=== PATIENT | female | born 1950 | race African-American/Black ===

== ENCOUNTER 2017-12-06 22:46 | Emergency (ER) | payer MEDICARE, OTHER ==
[2017-12-06 23:40] LABS: Bilirubin Negative (Negative); Blood, Urine Negative (Negative); Clarity CLEAR (Clear); Glucose, Urine (Dipstick) >=1000 mg/dL (Negative); Leukocyte Negative (Negative); Nitrite Negative (Negative); Protein, Urine (Dipstick) Negative (Neg-Trace); Specific Gravity, Urine 1.029 (1.002-1.036)
[2017-12-06 23:42] LABS: #Eosinphils 0.2 thou/uL (0.0-0.7); #Lymphocytes 2.5 thou/uL (1.20-3.40); #Monocytes 0.6 thou/uL (0.11-0.59); #Neutrophils 5.6 thou/uL (1.40-6.50); %Basophils 0.4 % (0.0-1.0); %Eosinophils 1.9 % (0.0-10.0); %Lymphocytes 28.2 % (21.0-51.0); %Monocytes 6.3 % (0.0-10.0); %Neutrophils 63.2 % (42.0-75.0); Hemoglobin 13.7 g/dL (12.0-16.0); Mean Corpuscular HGB CONC 32.6 g/dL (32.0-36.0); Mean Corpuscular Hemoglobin 28.3 pg (27.0-31.0); Mean Corpuscular Volume 86.9 fl (81.0-99.0); Mean Platelet Volume 8.7 fL (7.4-10.4); Platelet Count 298 thou/uL (130-400); RBC Distribution Width 12.4 % (11.5-14.5); Red Blood Cell (RBC) Count 4.83 mill/uL (4.20-5.40); White Blood Cell (WBC) Count 8.9 thou/uL (4.8-10.8)
[2017-12-06 23:52] LABS: ALT (SGPT) 11 U/L (8-55); AST (SGOT) 13 U/L (5-34); Albumin 4.2 g/dL (3.4-4.8); Alkaline Phosphatase 101 U/L (40-150); Anion Gap 13 mmol/L (10-20); BUN (Urea Nitrogen) 11 mg/dL (9.8-20.1); Bilirubin, Total 0.9 mg/dL (0.2-1.2); Calc. Creatinine Clearance 0 mL/min (70-130); Calcium 9.7 mg/dL (7.8-10.44); Carbon Dioxide 23 mmol/L (23-31); Chloride 104 mmol/L (98-107); Estimated GFR-MDRD 44; Glucose 384 mg/dL (80-115); Lipase 21 U/L (8-78); Protein, Total 7.2 g/dL (6.0-8.3); Sodium 136 mmol/L (136-145)
[2017-12-06 23:57] LABS: Troponin I 0.011 ng/mL (< 0.028)
[2017-12-07] MEDS ORDERED: Pantoprazole 40 MG VIAL ONE (00:03)
[2017-12-07] MEDS ORDERED: cloNIDine 0.1 MG TAB ONE (00:03)
--- NOTE | 2017-12-07 09:36 | CT ---
PRELIMINARY REPORT/[facility]/EMERGENCY AFTER HOURS PROCEDURE: EXAM: CT Abdomen and Pelvis Without Intravenous Contrast EXAM DATE/TIME: Exam ordered 12/07/2017 1:36 AM CLINICAL HISTORY: 67 years old, female; Pain; Abdominal pain; Generalized; Prior surgery; Patient HX: Er 6; F67 present s to ed C/O abd pain that began 3 days ago. Pt reports HX of HTN and taking medication for BP today. Pt reports last bm was yesterday and normal. Pt denies n/v, denies diarrhea or constipation. Pt repor ts localized abd pain to lower abd, pt denies uti SX. Pt reports HX of perforated ulcer years ago. Pe rforated ulcer, surgical history of coronary artery bypass graft surgery, three vessels. TECHNIQUE: Axial computed tomography images of the abdomen and pelvis without intravenous contrast. Coronal reformatted images were created and reviewed. COMPARISON: No relevant prior studies available. FINDINGS: Lower thorax: No acute findings. ABDOMEN: Liver: There are multiple simple hepatic cysts. Gallbladder and bile ducts: Multiple calcified gallstones are present. No ductal dilation. Pancreas: There is trace fullness of the pancreas with haziness possibly representing mild pancreatit is. No ductal dilation. Spleen: The spleen is normal. Adrenals: The adrenal glands are normal. Kidneys and ureters: The kidneys appear normal. No obstructing stones. No hydronephrosis. Stomach and bowel: The stomach is normal. The colon is normal. No obstruction. No mucosal thickening. Appendix: A normal appendix is identified. PELVIS: Bladder: The bladder is normal. No stones. Reproductive: The uterus is normal. ABDOMEN and PELVIS: Intraperitoneal space: The duodenum is somewhat thickened possibly representing duodenitis. There is no free air to suggest perforated ulcer. No significant fluid collection. Bones/joints: There are sternal wires consistent with previous sternotomy incision. The lumbar spine demonstrates mild degenerative changes at multiple levels. No acute fracture. No dislocation. Soft tissues: Normal. Vasculature: Normal. No abdominal aortic aneurysm. Lymph nodes: Normal. No enlarged lymph nodes. IMPRESSION: 1. The duodenum is somewhat thickened possibly representing duodenitis. There is no free air to sugge st perforated ulcer. 2. There is trace fullness of the pancreas with haziness possibly representing mild pancreatitis. Co rrelation with lipase values is advised. Thank you for allowing us to participate in the care of your patient. Dictated and Authenticated by: Joshua Simmons MD 12/07/2017 2:10 AM Central Time ([place] & [place]) FINAL REPORT ABDOMEN CT WITHOUT CONTRAST PELVIC CT WITHOUT CONTRAST: Date: 12/07/17 HISTORY: Abdominal pain. Previous perforated ulcer. COMPARISON: 11/25/13. TECHNIQUE: Abdomen and pelvic CT performed without contrast. Coronal reformatted images submitted for interpreta tion. FINDINGS/IMPRESSION: There is mucosal thickening and distention involving the duodenum. Correlate for duodenitis. No assoc iated free air or free fluid. Contracted gallbladder with evidence of cholelithiasis. If there is concern for cholecystitis, consid er gallbladder ultrasound. Questionable inflammatory changes involving the pancreas. Correlate clinically for pancreatitis. Norm al caliber appendix. No evidence of bowel obstruction. Report in agreement with preliminary report given on-call by Timothy. POS: LET[facility]
--- NOTE | 2017-12-12 19:03 | EKG ---
Test Reason : Blood Pressure : / mmHG Vent. Rate : 075 BPM Atrial Rate : 075 BPM P-R Int : 134 ms QRS Dur : 074 ms QT Int : 412 ms P-R-T Axes : 058 057 078 degrees QTc Int : 460 ms Normal sinus rhythm Possible Left atrial enlargement Borderline ECG Confirmed by JULIUS MCNALLY, SAUD ([id number]), city editor VANCE LYNCH ([id number]) on 12/12/2017 7:02:19 PM Referred By: Confirmed By:SAUD MADRID MD
== END 2017-12-07 02:56 | disposition home or self-care (01) ==
LOC: ERS 22:46
DX: K29.80 Duodenitis without bleeding (principal); E11.9 Type 2 diabetes mellitus without complications; I10 Essential (primary) hypertension; I25.2 Old myocardial infarction; Z79.4 Long term (current) use of insulin; Z79.899 Other long term (current) drug therapy
CPT/HCPCS: 74176; 80053; 81003; 82553; 83690; 84484; 85025; 93005; 96374; C9113

== ENCOUNTER 2018-07-07 08:09 | Emergency (ER) | payer MEDICARE ==
[2018-07-07 08:52] LABS: #Eosinphils 0.1 thou/uL (0.0-0.7); #Lymphocytes 2.1 thou/uL (1.20-3.40); #Monocytes 0.5 thou/uL (0.11-0.59); #Neutrophils 3.7 thou/uL (1.40-6.50); %Basophils 0.6 % (0.0-1.0); %Eosinophils 1.6 % (0.0-10.0); %Lymphocytes 32.5 % (21.0-51.0); %Monocytes 7.3 % (0.0-10.0); Mean Corpuscular HGB CONC 32.5 g/dL (32.0-36.0); Mean Corpuscular Hemoglobin 28.2 pg (27.0-31.0); Mean Corpuscular Volume 86.6 fL (78.0-98.0); RBC Distribution Width 12.4 % (11.5-14.5); Red Blood Cell (RBC) Count 5.33 mill/uL (4.20-5.40); White Blood Cell (WBC) Count 6.4 thou/uL (4.8-10.8)
[2018-07-07 08:55] LABS: Bilirubin Negative (Negative); Blood, Urine Trace (Negative); Clarity CLOUDY (Clear); Glucose, Urine (Dipstick) 100 mg/dL (Negative); Leukocyte Small (Negative); Nitrite Negative (Negative); Protein, Urine (Dipstick) 30 mg/dL (Neg-Trace); Specific Gravity, Urine 1.016 (1.002-1.036); pH, Urine 5.5 (5.0-9.0)
[2018-07-07 08:59] LABS: Bacteria/HPF 1+ HPF (None Seen); Pathc Cast-AUWi Flag 1.88 (0-2.49)
[2018-07-07 09:08] LABS: MDiff Complete? YES; Mean Platelet Volume 9.4 fL (7.4-10.4); Platelet Clumps SLIGHT; Platelet Count 183 thou/uL (130-400)
[2018-07-07 09:14] LABS: ALT (SGPT) 8 U/L (8-55); AST (SGOT) 20 U/L (5-34); Albumin 4.6 g/dL (3.4-4.8); Alkaline Phosphatase 110 U/L (40-150); Anion Gap 15 mmol/L (10-20); BUN (Urea Nitrogen) 12 mg/dL (9.8-20.1); Bilirubin, Total 1.4 mg/dL (0.2-1.2); Calc. Creatinine Clearance 0 mL/min (70-130); Calcium 10.1 mg/dL (7.8-10.44); Carbon Dioxide 22 mmol/L (23-31); Chloride 104 mmol/L (98-107); Estimated GFR-MDRD 41; Globulin 4.3 g/dL (2.4-3.5); Glucose 211 mg/dL (80-115); Lipase 21 U/L (8-78); Potassium 4.4 mmol/L (3.5-5.1); Protein, Total 8.9 g/dL (6.0-8.3); Sodium 137 mmol/L (136-145)
[2018-07-07] MEDS ORDERED: Ondansetron HCl/PF 4 MG/2 ML Vial ONE (09:22)
[2018-07-07] MEDS ORDERED: Morphine 4 MG/ML VIAL ONE (09:22)
[2018-07-07 09:28] LABS: Hyaline Casts/LPF 4-6 HYALINE CAST LPF (0-3 Hyaline)
[2018-07-07 10:07] LABS: CKMB 0.7 ng/mL (0-6.6)
--- NOTE | 2018-07-07 12:41 | CT ---
CT ABDOMEN AND PELVIS WITH IV AND ORAL CONTRAST: History: Abdominal pain. Comparison: 12-07-17 FINDINGS: Mild atelectasis at the lung bases. Hyperdense stones within the gallbladder. Lobular cysts of the li jahaira are stable. The spleen, kidneys, adrenal glands, and pancreas are unremarkable. The duodenum does not appear inflamed on today's study. Appendix not inflamed. Urinary bladder is decompressed. No anthony dence of bowel obstruction. IMPRESSION: Cholelithiasis. No acute abnormalities are demonstrated. POS: [facility]
[2018-07-07] MEDS ORDERED: ISOVUE-370 76%-LOCM 1 ML ONE (12:47)
[2018-07-07] MEDS ORDERED: HYDROcodone/Acetaminophen 10/325 mg Tablet ONE (12:54)
--- NOTE | 2018-07-10 13:47 | EKG ---
Test Reason : Blood Pressure : / mmHG Vent. Rate : 060 BPM Atrial Rate : 060 BPM P-R Int : 132 ms QRS Dur : 072 ms QT Int : 466 ms P-R-T Axes : 050 029 083 degrees QTc Int : 466 ms Normal sinus rhythm Septal infarct , age undetermined Abnormal ECG Confirmed by PIPPA JAIMES DO ([id number]), supervising editor trailer VANCE LYNCH ([id number]) on 07/10/2018 1:46:52 PM Referred By: Confirmed By:PIPPA JAIMES DO
== END 2018-07-07 13:00 | disposition home or self-care (01) ==
LOC: ERS 08:09
DX: R10.9 Unspecified abdominal pain (principal); E78.00 Pure hypercholesterolemia, unspecified; E11.9 Type 2 diabetes mellitus without complications; I25.2 Old myocardial infarction; I10 Essential (primary) hypertension; I25.10 Atherosclerotic heart disease of native coronary artery without angina pectoris; Z79.4 Long term (current) use of insulin; Z79.899 Other long term (current) drug therapy; Z79.84 Long term (current) use of oral hypoglycemic drugs
CPT/HCPCS: 74177; 80053; 81003; 81015; 82553; 83690; 84484; 85025; 93005; 96361; 96374; 96375; J2270; J2405

== ENCOUNTER 2019-06-23 03:13 | Emergency (ER) | payer MEDICARE ==
[2019-06-23] MEDS ORDERED: Ondansetron PF 4 MG/2 ML Vial ONE (03:27)
[2019-06-23] MEDS ORDERED: Aspirin Chewable 81 MG TAB ONE (03:27)
[2019-06-23] MEDS ORDERED: Morphine 4 MG/ML VIAL ONE (03:27)
[2019-06-23 04:07] LABS: #Eosinphils 0.2 thou/uL (0.0-0.7); #Lymphocytes 1.9 thou/uL (1.20-3.40); #Monocytes 0.6 thou/uL (0.11-0.59); #Neutrophils 4.5 thou/uL (1.40-6.50); %Basophils 0.6 % (0.0-1.0); %Lymphocytes 25.7 % (21.0-51.0); %Monocytes 8.4 % (0.0-10.0); %Neutrophils 62.3 % (42.0-75.0); Hemoglobin 12.6 g/dL (12.0-16.0); Mean Corpuscular HGB CONC 33.8 g/dL (32.0-36.0); Mean Corpuscular Hemoglobin 28.9 pg (27.0-31.0); Mean Corpuscular Volume 85.6 fL (78.0-98.0); Mean Platelet Volume 8.6 fL (7.4-10.4); Platelet Count 295 thou/uL (130-400); RBC Distribution Width 11.7 % (11.5-14.5); Red Blood Cell (RBC) Count 4.36 mill/uL (4.20-5.40); White Blood Cell (WBC) Count 7.2 thou/uL (4.8-10.8)
[2019-06-23 04:24] LABS: ALT (SGPT) Less than 7 U/L (8-55); AST (SGOT) 10 U/L (5-34); Albumin 4.2 g/dL (3.4-4.8); Alkaline Phosphatase 75 U/L (40-150); Anion Gap 16 mmol/L (10-20); BUN (Urea Nitrogen) 21 mg/dL (9.8-20.1); Bilirubin, Total 0.9 mg/dL (0.2-1.2); CK (CPK) 47 U/L (29-168); Calc. Creatinine Clearance 0 mL/min (70-130); Calcium 9.9 mg/dL (7.8-10.44); Carbon Dioxide 25 mmol/L (23-31); Chloride 96 mmol/L (98-107); Estimated GFR-MDRD 37; Globulin 3.3 g/dL (2.4-3.5); Glucose 344 mg/dL (80-115); Potassium 3.2 mmol/L (3.5-5.1); Protein, Total 7.5 g/dL (6.0-8.3); Sodium 134 mmol/L (136-145)
--- NOTE | 2019-06-23 07:02 | RAD ---
CHEST 1 VIEW: Date: 06/23/19 INDICATION: Emergency examination for left-sided chest pain. COMPARISON: Prior exam dated 05/30/19. FINDINGS: Midline sternotomy changes and chronic lung changes are stable. No acute air space opacity or pleural effusion noted. No acute osseous abnormality is present. IMPRESSION: No acute cardiopulmonary abnormality. POS: [facility]
--- NOTE | 2019-06-23 07:45 | CT ---
PRELIMINARY REPORT/[facility]/EMERGENCY AFTER HOURS PROCEDURE: PROCEDURE INFORMATION: Exam: CT Abdomen and Pelvis With Contrast Exam date and time: 06/23/2019 4:39 AM Clinical history: 69 years old, female; Abdominal pain; Acute; Patient HX: 69 y/o F presents to ED with multiple compla ints, including x 2 days of diffuse pain with pain to L side worse than R; Intermittent chills x 2 days; Intermittent GARNICA x 2 days; Nausea, abd pain, and chest tightness that began tonight. PT has been taking acetaminophen for her pain, offering no relief. PT was recently admitted following presentation to ED for evaluation of GARNICA, with admission for TIA. TECHNIQUE: Imaging protocol: Computed tomography of the abdomen and pelvis with intravenous contrast. COMPARISON: No relevant prior studies available. FINDINGS: Liver: Liver lesions measuring up to 10 mm may be cystic. Gallbladder and bile ducts: There are multiple gallstones in the gallbladder. Pancreas: Normal. No ductal dilation. Spleen: Normal. No splenomegaly. Adrenals: Normal. No mass. Kidneys and ureters: Normal. No hydronephrosis. Stomach and bowel: There is a large amount of stool in the colon. Appendix: The appendix is unremarkable. Intraperitoneal space: Mild mesenteric edema is nonspecific. Vasculature: Calcifications in the andrade of the aorta and other arteries are consistent with atherosclerosis. No abdominal aortic aneurysm or dissection is identified. Lymph nodes: Unremarkable. No enlarged lymph nodes. Bladder: The wall of the urinary bladder is mildly thickened. Reproductive: Unremarkable as visualized. Bones/joints: There are degenerative changes in the spine. There is a probable Schmorl's node in L4. Soft tissues: Unremarkable. IMPRESSION: 1. Gallstones in the gallbladder. 2. Large amount of stool in the colon. 3. Additional findings as above. Thank you for allowing us to participate in the care of your patient. Dictated and Authenticated by: Drew Resendiz MD 06/23/2019 5:14 AM Central Time ([place] & [place]) FINAL REPORT EMERGENT AFTER HOURS CT ABDOMEN AND PELVIS WITH IV CONTRAST: HISTORY: Diffuse abdominal pain greater on the left. Intermittent chills. Nausea. COMPARISON: 07/07/2018. IMPRESSION: 1. Cholelithiasis. 2. Stable scattered hypodense lesions in each lobe of the liver which were also seen on study in 2013 statistically likely represent hepatic cysts. 3. Vascular calcifications. 4. Moderate amount of retained fecal material in the colon. 5. No CT evidence of appendicitis. 6. Suggested mild thickening in the region of the pylorus of the stomach and first and second portion s of the duodenum. This is overall nonspecific, but a similar finding was seen on study in 2013. This could be related to the degree of distention. However, if there is concern for ulcer disease or persistent abdominal symptoms, endoscopy is recommended for further evaluation. 7. Findings are in agreement with preliminary report by SHAYY. Transcribed Date/Time: 06/23/2019 8:13 AM
--- NOTE | 2019-06-25 12:20 | EKG ---
Test Reason : CP Blood Pressure : / mmHG Vent. Rate : 064 BPM Atrial Rate : 064 BPM P-R Int : 128 ms QRS Dur : 076 ms QT Int : 428 ms P-R-T Axes : 043 045 084 degrees QTc Int : 441 ms Normal sinus rhythm Nonspecific T wave abnormality Abnormal ECG Confirmed by TOMAS COOK M.D. ([id number]), editor producer JENIFFER BELTRAN ([id number]) on 06/25/2019 12:20:23 PM Referred By: Confirmed By:TOMAS COOK M.D.
== END 2019-06-23 05:41 | disposition home or self-care (01) ==
LOC: ERS 03:13
DX: R07.89 Other chest pain (principal); R10.814 Left lower quadrant abdominal tenderness; I25.2 Old myocardial infarction; E11.9 Type 2 diabetes mellitus without complications; I10 Essential (primary) hypertension; E78.00 Pure hypercholesterolemia, unspecified; Z79.01 Long term (current) use of anticoagulants; Z79.899 Other long term (current) drug therapy; Z79.84 Long term (current) use of oral hypoglycemic drugs
CPT/HCPCS: 71045; 74177; 80053; 82550; 84484; 85025; 93005; 96374; 96375; J2270; J2405

== ENCOUNTER 2019-11-20 09:40 | Observation (INO) | payer MEDICARE, OTHER ==
[2019-11-20 12:07] LABS: #Basophils 0.1 thou/uL (0.0-0.2); #Eosinphils 0.2 thou/uL (0.0-0.7); #Lymphocytes 1.8 thou/uL (1.20-3.40); #Monocytes 0.6 thou/uL (0.11-0.59); #Neutrophils 6.8 thou/uL (1.40-6.50); %Basophils 0.7 % (0.0-1.0); %Eosinophils 1.6 % (0.0-10.0); %Lymphocytes 18.7 % (21.0-51.0); %Monocytes 6.4 % (0.0-10.0); %Neutrophils 72.6 % (42.0-75.0); Mean Corpuscular HGB CONC 33.8 g/dL (32.0-36.0); Mean Corpuscular Hemoglobin 28.7 pg (27.0-31.0); Mean Corpuscular Volume 84.7 fL (78.0-98.0); Mean Platelet Volume 9.9 fL (7.4-10.4); Platelet Count 231 thou/uL (130-400); RBC Distribution Width 11.2 % (11.5-14.5); Red Blood Cell (RBC) Count 4.89 mill/uL (4.20-5.40); White Blood Cell (WBC) Count 9.4 thou/uL (4.8-10.8)
[2019-11-20] MEDS ORDERED: Ondansetron PF 4 MG/2 ML Vial ONE (12:13)
[2019-11-20 12:29] LABS: ALT (SGPT) Less than 7 U/L (8-55); AST (SGOT) 9 U/L (5-34); Alkaline Phosphatase 81 U/L (40-110); Anion Gap 16 mmol/L (10-20); BUN (Urea Nitrogen) 24 mg/dL (9.8-20.1); Bilirubin, Total 1.4 mg/dL (0.2-1.2); Calc. Creatinine Clearance 0 mL/min (70-130); Carbon Dioxide 29 mmol/L (23-31); Chloride 91 mmol/L (98-107); Estimated GFR-MDRD 26; Globulin 2.9 g/dL (2.4-3.5); Glucose 525 mg/dL (80-115); Lipase 30 U/L (8-78); Potassium 3.5 mmol/L (3.5-5.1); Protein, Total 6.9 g/dL (6.0-8.3); Sodium 132 mmol/L (136-145)
[2019-11-20 12:52] LABS: CKMB 1.5 ng/mL (0-6.6)
[2019-11-20] MEDS ORDERED: Insulin Regular 300 UNITS/3 ML VIAL ONE (13:05)
[2019-11-20] MEDS ORDERED: Aspirin Chewable 81 MG TAB ONE (13:05)
--- NOTE | 2019-11-20 15:08 | ULT ---
[facility]: 11/20/2019 COMPARISON:None available HISTORY:Right upper quadrant pain TECHNIQUE: Multiplanar grayscale sonographic imaging of theright upper quadrant FINDINGS:The senior sales director reports a negative Ken's sign. Imaged pancreas grossly unremarkable. No f ocal liver lesion or intrahepatic biliary dilatation. Numerous echogenic foci within the gallbladder with associated shadowing present, consistent with cholelithiasis. No gallbladder wall th ickening or pericholecystic fluid. The common bile duct measures 4 mm, within normal limits. Right kidney measures 10.2 cm in craniocaudal dimension and demonstrates no evidence for stone, hydro nephrosis, or mass lesion. IMPRESSION:Cholelithiasis with no sonographic evidence of cholecystitis or biliary dilatation.
[2019-11-20] MEDS ORDERED: Calcium Carbonate 500 MG ChewTAB PO PRN (15:16)
[2019-11-20] MEDS ORDERED: Guaifenesin DM 100-10/5 ML UDCUP PO PRN (15:16)
[2019-11-20] MEDS ORDERED: Dextrose 50% Abboject 50 ML SYRINGE SLOW IVP PRN (15:16)
[2019-11-20] MEDS ORDERED: Dextrose 5% in Water 1,000 ML IV PRN (15:16)
[2019-11-20] MEDS ORDERED: Nitroglycerin 0.4 MG TAB (25 Tab Bottle) PO PRN (15:16)
[2019-11-20] MEDS ORDERED: Zolpidem Tartrate 5 MG TAB PO PRN (15:16)
[2019-11-20] MEDS ORDERED: Bisacodyl 10 MG SUPP PR PRN (15:16)
[2019-11-20] MEDS ORDERED: Ondansetron PF 4 MG/2 ML Vial IVP PRN (15:16)
[2019-11-20] MEDS ORDERED: HumaLOG 300 UNITS/3 ML VIAL SC PRN (15:16)
[2019-11-20 15:44] LABS: Troponin I 0.035 ng/mL (< 0.028)
--- NOTE | 2019-11-20 16:04 | HP ---
REASON FOR ADMISSION: Chest pain, nausea and vomiting. HISTORY OF PRESENTING ILLNESS: The patient gives history of feeling bad and weak from morning. She also mentions that she has had cold and flu-like symptoms for last 3 weeks. She has some cough, but mostly dry. She vomited twice this morning. She has frontal headache. She also mentions she has had some postnasal drainage. No complaints of fever this morning. No complaints of palpitations, PND, or orthopnea. No complaints of urinary frequency or urgency. Has had chest pain in the retrosternal area for a brief minute or 2. This did not come back. There is no radiation of this pain and got resolved by itself. PAST MEDICAL AND SURGICAL HISTORY: History of coronary artery disease, prior CABG, prior cardiac catheterizations done, which revealed small vessel disease for medical management. Last echo in May of 2019 showed EF of 55% to 60%. History of cholelithiasis; dyslipidemia; hypertension; diabetes mellitus, type 2; chronic kidney disease, stage 3; history of perforated peptic ulcer with surgery for the same. CURRENT MEDICATIONS: Please note the patient cannot recall all her medications. She says she goes to [facility] on [address] and we will try to obtain the same from there. She does mention that she has stopped taking insulin shots including Levemir and is on glimepiride only at present. Per prior records, the patient is on; 1. Norvasc 10 mg daily. 2. Aspirin 81 mg daily. 3. Plavix 75 mg daily. 4. Coreg 12.5 mg twice daily. 5. Hydrochlorothiazide 25 mg daily. 6. Imdur extended release 60 mg daily. 7. Crestor 10 mg daily. 8. Zolpidem 5 mg p.o. at bedtime p.r.n. 9. Glimepiride 4 mg twice daily. 10. Protonix 40 mg daily. 11. [place] 5/325 mg p.o. q.6 hourly p.r.n. 12. Colace 100 mg daily. ALLERGIES: ALLERGIC TO PENICILLIN. PERSONAL HISTORY: Does not abuse alcohol or drugs. No history of smoking. She ambulates by herself. FAMILY HISTORY: Mother in her 60s, she has had history of HIV. Father in his 70s from unknown cancer. CODE STATUS: Full. REVIEW OF SYSTEMS: CONSTITUTIONAL: Negative for weight loss or gain, ability to conduct usual activities. SKIN: Negative for rash, itching. EYES: Negative for double vision, pain. ENT/MOUTH: Negative for nose bleeding, neck stiffness, pain, tenderness. CARDIOVASCULAR: Negative for palpitations, dyspnea on exertion, orthopnea. RESPIRATORY: Negative for shortness of breath, wheezing, cough, hemoptysis, fever or night sweats. GASTROINTESTINAL: Negative for poor appetite, abdominal pain, heartburn, nausea , vomiting, constipation, or diarrhea. GENITOURINARY: Negative for urgency, frequency, dysuria, nocturia. MUSCULOSKELETAL: Negative for pain, swelling. NEUROLOGIC/PSYCHIATRIC: Negative for anxiety, depression. ALLERGY/IMMUNOLOGIC: Negative for skin rash, bleeding tendency. PHYSICAL EXAMINATION: GENERAL: The patient is a 69-year-old female, who is currently not in any acute distress. VITAL SIGNS: Blood pressure 132/70, pulse 70 per minute, respiratory rate 18 per minute, temperature 97.9 degrees Fahrenheit, saturating 100% on room air. NECK: Supple. No elevated JVD. HEENT: Eyes; extraocular muscles are intact. Pupils are reacting to light. Oral cavity, mucous membranes are moist. No exudates or congestion. CARDIOVASCULAR SYSTEM: S1 and S2 heard, regular rhythm. RESPIRATORY SYSTEM: Air entry 1+ bilateral. No rales or rhonchi. ABDOMEN: Soft. Bowel sounds heard. No tenderness, rigidity, or guarding. EXTREMITIES: No peripheral edema or calf tenderness. VASCULAR SYSTEM: Peripheral pulses 1+ bilateral. No ischemic ulcerations or gangrene. CENTRAL NERVOUS SYSTEM: No gross focal deficits noted. The patient is alert, awake, and oriented well. PSYCHIATRIC SYSTEM: The patient's mood is euthymic. No hallucinations or delusions. LABORATORY DATA: White count of 9.4, hemoglobin and hematocrit of 14 and 41, platelet count 231, with 72% neutrophils. Sodium 132, serum bicarb 29, BUN 24, creatinine 2.2, serum glucose 525, total bilirubin 1.4. AST, ALT, alkaline phosphatase within normal limits. Troponin-I 0.03. Lipase is 30. Ultrasound of right upper quadrant done, showed cholelithiasis with no evidence of cholecystitis or biliary dilatation. Common bile duct was 4 mm and was within normal limits. EKG done shows normal sinus rhythm at 62 beats per minute. There is Q-wave seen in V2 and V3 with poor R-wave progression. CLINICAL IMPRESSION AND PLAN: The patient will be under observation on telemetry for an episode of chest pain with generalized weakness and flu-like illness for the last 3 weeks. We will trend her troponins. She has known history of coronary artery disease with prior coronary artery bypass grafting and is for medical management due to diffuse disease. She also has diabetes mellitus, type 2, which is uncontrolled. The patient says she was taken off Levemir recently. We will place her back on 20 units of Lantus at bedtime and continue her glimepiride 4 mg twice daily. She will be gently hydrated with normal saline at 100 mL per hour for a total of 1 L. We will continue Norvasc, carvedilol, aspirin, Plavix, Imdur extended release as before. Her hydrochlorothiazide will be held for now. We will consult Dr. Mendes, her pen tender in the morning. We will also obtain a viral PCR to know if she had any flu recently. Job ID: [id number] MTDD
[2019-11-20 16:24] VITALS: BMI 21.4
[2019-11-20] MEDS: Sodium Chloride 0.9% 1,000 ML IV SCH (17:17)
--- NOTE | 2019-11-20 17:42 | RAD ---
Exam: Chest one view HISTORY:Chest pain Comparison: 06/23/2019 FINDINGS: Cardiac silhouette: Normal Aorta: Atherosclerosis of the aortic knob Pulmonary vessels: Normal Costophrenic angles: Clear LUNGS: No masses or consolidation. Pneumothorax: None Osseous abnormalities: None Sternotomy wires are redemonstrated IMPRESSION: No acute cardiopulmonary process.
[2019-11-20 18:34] LABS: Troponin I 0.034 ng/mL (< 0.028)
[2019-11-20] MEDS: Carvedilol 6.25 MG TAB PO SCH (20:39)
[2019-11-20] MEDS: Heparin 5,000 UNITS/ML VIAL SC SCH (20:39)
[2019-11-20] MEDS ORDERED: Senokot S 8.6-50 MG TAB PO PRN (21:00)
[2019-11-20] MEDS: Insulin Glargine 20 UNITS in Pre-Filled Syringe 1 EACH SC SCH (22:41)
[2019-11-21] MEDS: Sodium Chloride 0.9% 1,000 ML IV SCH (02:29)
[2019-11-21 04:52] LABS: #Eosinphils 0.2 thou/uL (0.0-0.7); #Lymphocytes 2.1 thou/uL (1.20-3.40); #Monocytes 0.5 thou/uL (0.11-0.59); #Neutrophils 4.3 thou/uL (1.40-6.50); %Eosinophils 2.4 % (0.0-10.0); %Lymphocytes 29.1 % (21.0-51.0); %Monocytes 7.6 % (0.0-10.0); %Neutrophils 60.9 % (42.0-75.0); Hemoglobin 11.7 g/dL (12.0-16.0); Mean Corpuscular HGB CONC 32.8 g/dL (32.0-36.0); Mean Corpuscular Hemoglobin 28.3 pg (27.0-31.0); Mean Corpuscular Volume 86.1 fL (78.0-98.0); Mean Platelet Volume 9.8 fL (7.4-10.4); Platelet Count 198 thou/uL (130-400); RBC Distribution Width 11.3 % (11.5-14.5); Red Blood Cell (RBC) Count 4.15 mill/uL (4.20-5.40)
[2019-11-21 05:02] LABS: ALT (SGPT) Less than 7 U/L (8-55); AST (SGOT) 9 U/L (5-34); Alkaline Phosphatase 61 U/L (40-110); Anion Gap 10 mmol/L (10-20); BUN (Urea Nitrogen) 22 mg/dL (9.8-20.1); Bilirubin, Total 0.8 mg/dL (0.2-1.2); Calc. Creatinine Clearance 28 mL/min (70-130); Calcium 8.6 mg/dL (7.8-10.44); Carbon Dioxide 27 mmol/L (23-31); Chloride 104 mmol/L (98-107); Cholesterol 100 mg/dl (< 200 Desired); Estimated GFR-MDRD 34; Globulin 2.6 g/dL (2.4-3.5); Glucose 234 mg/dL (80-115); HDL Cholesterol 49 mg/dL (>60 Neg Risk); LDL Cholesterol, Calculated 42 mg/dL; Potassium 3.5 mmol/L (3.5-5.1); Protein, Total 5.6 g/dL (6.0-8.3); Sodium 137 mmol/L (136-145); Triglycerides 44 mg/dL (Less than 150)
[2019-11-21] MEDS: HumaLOG 300 UNITS/3 ML VIAL SC PRN ×2 (05:30→11:26)
[2019-11-21] MEDS: Clopidogrel Bisulfate 75 MG TAB PO SCH (08:57)
[2019-11-21] MEDS: Carvedilol 6.25 MG TAB PO SCH ×2 (08:57→21:14)
[2019-11-21] MEDS: Aspirin 81 mg Enteric Coated Tablet PO SCH (08:57)
[2019-11-21] MEDS: Amlodipine 10 MG TAB PO SCH (08:57)
[2019-11-21] MEDS: Glimepiride 4 MG TAB PO SCH (08:57)
[2019-11-21] MEDS: Heparin 5,000 UNITS/ML VIAL SC SCH ×2 (08:58→21:15)
[2019-11-21] MEDS ORDERED: Hydrochlorothiazide 25 MG TAB PO SCH (09:00)
[2019-11-21] MEDS ORDERED: Prevnar 13-Val Conj/PF 0.5 ML SYRINGE IM ONE (09:00)
[2019-11-21] MEDS ORDERED: FLU VACC TS2019-20(65YR UP)/PF 180 MCG/0.5 ML SYRINGE IM ONE (09:00)
[2019-11-21] MEDS: Acetaminophen 325 MG TAB PO PRN ×2 (09:01→15:54)
--- NOTE | 2019-11-21 10:10 | PRG ---
DATE OF SERVICE: 11/21/2019 SUBJECTIVE: Ms. Main is a very pleasant 69-year-old woman, who had a history of coronary disease with previous bypass surgery. She came to the hospital with weakness, fatigue, found to have renal insufficiency, slightly increased troponin levels, and she has been having recurrent chest pain, left lower anterior chest. The patient is very unsure about her medicines, please see the nurse's notes. She thinks she has had a flu in the last couple of weeks, but she has not had a specific diagnosis. OBJECTIVE: VITAL SIGNS: Blood pressure 108/56, pulse 58 and regular. LUNGS: Clear. CARDIAC: Normal S1, normal S2. ABDOMEN: Soft and nontender. ASSESSMENT: 1. Previous bypass surgery. 2. Left lower anterior chest pain, atypical for angina. 3. Distal atherosclerosis. 4. Diabetes. She said her blood sugar was 525 yesterday. 5. Worsening renal function, probably volume depletion due to hyperglycemia and diuretics. 6. Hyponatremia, improved. PLAN: 1. Continue fluid. 2. Holding hydrochlorothiazide. 3. Stress test to be ordered. Job ID: [id number] MTDD
--- NOTE | 2019-11-21 10:56 | PDOC.HOSPP ---
- Subjective Encounter Date: 11/21/19 Encounter Time: 10:00 Subjective: sitting in chair, no chest pain or palpitations. Feels good is ambulating in room - Objective Vital Signs & Weight: Vital Signs (12 hours) Temp Pulse Resp BP BP Pulse Ox 11/21/19 08:57 58 L 108/56 L 11/21/19 07:21 97.6 F 58 L 16 159/74 H 100 11/21/19 02:29 50 L 18 108/56 L 98 Weight Weight 132 lb 14.4 oz I&O: 11/20/19 11/21/19 11/22/19 06:59 06:59 06:59 Intake Total 1920 Balance 1920 Result Diagrams: 11/21/19 04:27 11/21/19 04:27 Additional Labs: Accuchecks 11/20/19 11/20/19 20:42 14:03 POC Glucose 353 H 314 H Hospitalist ROS - Medication Medications: Active Medications Generic Name Dose Route Start Last Admin Trade Name Freq PRN Reason Stop Dose Admin Acetaminophen 650 mg 11/20/19 15:16 11/21/19 09:01 Tylenol PO 650 mg Q4H PRN Administration Headache/Fever/Mild Pain (1-3) Amlodipine Besylate 10 mg 11/21/19 09:00 11/21/19 08:57 Norvasc PO 10 mg DAILY JOHN Administration Aspirin 81 mg 11/21/19 09:00 11/21/19 08:57 Ecotrin PO 81 mg DAILY JOHN Administration Carvedilol 12.5 mg 11/20/19 21:00 11/21/19 08:57 Coreg PO 12.5 mg BID JOHN Administration Clopidogrel Bisulfate 75 mg 11/21/19 09:00 11/21/19 08:57 Plavix PO 75 mg DAILY JOHN Administration Glimepiride 4 mg 11/21/19 08:00 11/21/19 08:57 Amaryl PO 4 mg QAM-WM JOHN Administration Heparin Sodium (Porcine) 5,000 units 11/20/19 21:00 11/21/19 08:58 Heparin SC 5,000 units BID JOHN Administration Insulin Glargine 20 units/ 0.2 mls @ 0 mls/hr 11/20/19 21:00 11/20/19 22:41 Miscellaneous Medication SC 0.2 mls HS JOHN Administration Sodium Chloride 1,000 mls @ 100 mls/hr 11/20/19 15:30 11/21/19 02:29 Normal Saline 0.9% IV 11/21/19 11:29 1,000 mls .Q10H JOHN Administration Insulin Human Lispro 0 units 11/20/19 15:16 11/21/19 05:30 Humalog SC 6 unit .AGGRESSIVE SLIDING PRN Administration Aggressive Correctional Scale Insulin Human Lispro 0 units 11/20/19 15:16 11/20/19 20:45 Humalog SC 5 unit .BEDTIME SLIDING SC PRN Administration Bedtime Correctional Scale Isosorbide Mononitrate 60 mg 11/21/19 09:00 11/21/19 08:57 Imdur PO 60 mg DAILY JOHN Administration Ondansetron HCl 4 mg 11/20/19 15:16 11/21/19 08:59 Zofran IVP 4 mg Q6H PRN Administration Nausea/Vomiting - Exam General Appearance: awake alert Eye: PERRL, anicteric sclera ENT: no oropharyngeal lesions, moist mucosa Neck: supple, no JVD Heart: RRR, no murmur Respiratory: no wheezes, no rales Gastrointestinal: soft, non-tender, non-distended, normal bowel sounds Extremities: no cyanosis, no edema Neurological: cranial nerve grossly intact, no focal deficits Psychiatric: normal affect, A&O x 3 Hosp A/P (1) Chest pain Code(s): R07.9 - CHEST PAIN, UNSPECIFIED Status: Acute Qualifiers: Chest pain type: unspecified Qualified Code(s): R07.9 - Chest pain, unspecified (2) ARIELA (acute kidney injury) Code(s): N17.9 - ACUTE KIDNEY FAILURE, UNSPECIFIED Status: Acute (3) CKD (chronic kidney disease) stage 3, GFR 30-59 ml/min Code(s): N18.3 - CHRONIC KIDNEY DISEASE, STAGE 3 (MODERATE) Status: Chronic (4) Dyslipidemia Code(s): E78.5 - HYPERLIPIDEMIA, UNSPECIFIED Status: Chronic (5) CAD (coronary artery disease) Code(s): I25.10 - ATHSCL HEART DISEASE OF [place] CORONARY ARTERY W/O ANG PCTRS Status: Chronic Qualifiers: Coronary Disease-Associated Artery/Lesion type: bypass graft [place] vs. transplanted heart: [place] heart Associated angina: without angina Qualified Code(s): I25.810 - Atherosclerosis of coronary artery bypass graft(s) without angina pectoris (6) Diabetes mellitus Code(s): E11.9 - TYPE 2 DIABETES MELLITUS WITHOUT COMPLICATIONS Status: Chronic Qualifiers: Diabetes mellitus type: type 2 Diabetes mellitus senior care insulin use: without senior care use Diabetes mellitus complication status: with kidney complications Diabetes mellitus complication detail: with chronic kidney disease Chronic kidney disease stage: stage 3 (moderate) Qualified Code(s): E11.22 - Type 2 diabetes mellitus with diabetic chronic kidney disease; N18.3 - Chronic kidney disease, stage 3 (moderate) (7) Hypertension Code(s): I10 - ESSENTIAL (PRIMARY) HYPERTENSION Status: Chronic Qualifiers: Hypertension type: essential hypertension Qualified Code(s): I10 - Essential (primary) hypertension - Plan viral PCR was -ve gentle iv hydration, renal function is trending down to normal stress test has been scheduled by rosa Presley f/u dc plan per cardiology adv. will add glipizide and januvia on dc for dm, pt does not want any insulins
[2019-11-21] MEDS ORDERED: Nitroglycerin 2% Ointment 1 INCH/1 GM Packet ONE (16:08)
[2019-11-21] MEDS ORDERED: Nitroglycerin 2% Ointment 1 INCH/1 GM Packet TOP SCH (16:30)
[2019-11-21] MEDS: Insulin Glargine 20 UNITS in Pre-Filled Syringe 1 EACH SC SCH (21:15)
[2019-11-22] MEDS: Clopidogrel Bisulfate 75 MG TAB PO SCH (10:29)
[2019-11-22] MEDS: Aspirin 81 mg Enteric Coated Tablet PO SCH (10:29)
[2019-11-22] MEDS: Glimepiride 4 MG TAB PO SCH (10:29)
[2019-11-22] MEDS: Amlodipine 10 MG TAB PO SCH (10:29)
[2019-11-22] MEDS: Carvedilol 6.25 MG TAB PO SCH (10:29)
[2019-11-22] MEDS: Heparin 5,000 UNITS/ML VIAL SC SCH (10:30)
--- NOTE | 2019-11-22 11:53 | NM ---
NUCLEAR MEDICINE CARDIAC SPECT WITH EF AND WALL MOTION: HISTORY: Chest pain. This is an adenosine sestamibi study. The patient was injected with 28.2 mCi Technetium 99m sestamibi intravenously for stress images and t he patient was injected with 27.0 mCi Technetium 99m sestamibi intravenously for resting images. Multiple SPECT images in the short axis, vertical long axis, and horizontal long axis demonstrate no scan evidence for infarct or ischemia. TID 1.1. LHR 0.49. EDV 80 mL. Ejection fraction 71%. MYOCARDIAL PERFUSION WALL MOTION: Wall motion is normal. IMPRESSION: Unremarkable cardiac SPECT with EF and wall motion. No scan evidence for infarct or ischemia. POS: MALINA
[2019-11-22] MEDS ORDERED: ADENOSINE 60 MG/20 ML VIAL ONE (12:00)
[2019-11-22 12:06] VITALS: BP 133/62; TEMP 98.7
--- NOTE | 2019-11-22 16:48 | DIS ---
DATE OF ADMISSION: 11/20/2019 DATE OF DISCHARGE: 11/22/2019 DISCHARGE DISPOSITION: To home. PRIMARY DISCHARGE DIAGNOSES: Chest pain, noncardiac; acute kidney injury with moderate dehydration, resolved; history of chronic kidney disease stage 3; history of coronary artery disease; dyslipidemia; hypertension; diabetes mellitus type 2, uncontrolled on admission, resolved. PROCEDURES DONE DURING HOSPITALIZATION: Right upper quadrant ultrasound done showed cholelithiasis, but no evidence of cholecystitis or biliary dilatation. Common bile duct was 4 mm. Nuclear stress test done showed normal wall motion with EF of 71%. No scan evidence for infarct or ischemia. Respiratory virus panel PCR was negative. H and H of 11 and 35, platelet count 198. BUN 22, creatinine 1.8. Admitting BUN and creatinine was 24 and 2.2 with serum sugars of 525. DISCHARGE MEDICATIONS: 1. Norvasc 10 mg daily. 2. Aspirin 81 mg p.o. daily. 3. Coreg 12.5 mg twice daily. 4. Plavix 75 mg daily. 5. Zetia 10 mg daily. 6. Hydrochlorothiazide 25 mg daily. 7. Protonix 40 mg daily. 8. Lipitor 40 mg p.o. daily. 9. Glimepiride 4 mg p.o. daily. 10. Glipizide 5 mg daily. 11. Januvia 50 mg daily. ALLERGIES: ALLERGIC TO PENICILLIN. INPATIENT CONSULT: Dr. Mendes for Cardiology. DISCHARGE PLAN: The patient to follow up with Dr. Clifford, her primary care physician in 1 week. She needs to follow up with Dr. Mendes in 3 to 4 weeks. BRIEF COURSE DURING HOSPITALIZATION: The patient initially came to ER on the with complaints of nausea, vomiting, and chest discomfort. She had flu-like illness for 3 weeks prior to arrival. The patient had moderate dehydration with acute kidney injury on top of chronic kidney disease stage 3. She was gently hydrated. In view of her coronary artery disease with indeterminate troponin, the patient was placed under observation on telemetry. She has had consultation with Dr. Mendes, her senior examiner as well. She has had a nuclear stress test done, which showed no reversible ischemia. The patient had taken herself off Lantus as she did not want to prick herself. In view of the patient not wanting insulins, she was placed on glipizide, low-dose Januvia based on creatinine clearance, and glimepiride for her diabetes. She is hemodynamically stable and will be shortly discharged home. Please note, I have seen and examined the patient on the day of discharge. Job ID: [id number]
== END 2019-11-22 13:52 | disposition home or self-care (01) ==
LOC: ERS 09:40 → 2SW 14:48
PROVIDERS: ADMIT Internal Medicine; ATTEND Internal Medicine
DX: R07.89 Other chest pain (principal); I12.9 Hypertensive chronic kidney disease with stage 1 through stage 4 chronic kidney disease, or unspecified chronic kidney disease; E11.22 Type 2 diabetes mellitus with diabetic chronic kidney disease; N18.3 Chronic kidney disease, stage 3 (moderate); N17.9 Acute kidney failure, unspecified; E86.0 Dehydration; E78.5 Hyperlipidemia, unspecified; I25.10 Atherosclerotic heart disease of native coronary artery without angina pectoris; K80.20 Calculus of gallbladder without cholecystitis without obstruction; I25.2 Old myocardial infarction; E87.1 Hypo-osmolality and hyponatremia; Z79.02 Long term (current) use of antithrombotics/antiplatelets; Z79.82 Long term (current) use of aspirin; Z79.899 Other long term (current) drug therapy; Z88.0 Allergy status to penicillin; Z95.1 Presence of aortocoronary bypass graft
CPT/HCPCS: 71045; 76705; 78452; 80053 ×2; 80061; 82553; 82962 ×3; 83690; 84484 ×2; 85025 ×2; 87633; 90662; 90670; 93005 ×2; 93017; 94760 ×2; 96361; 96374; 96375; 97139; 99285; A9500; G0008; G0009; 36415; 36416; 90471; 93010; 96372; 96376; G0378; J0153; J1644; J1815; J2405

== ENCOUNTER 2021-09-29 16:26 | Observation (INO) | payer MEDICARE ==
[2021-09-29] MEDS ORDERED: Acetaminophen 500 MG TAB ONE (17:14)
[2021-09-29 17:26] LABS: Actual Bicarbonate (HCO3v) 26 mEq/L (22-28); Analyzer IN Cardio ER; Base Excess 1.9 mEq/L (-2.0 to +3.0); Calcium, Ionized (venous) 1.09 mmol/L (1.16-1.32); Chloride (VBG) 93 mmol/L (98-106); Potassium (VBG) 3.37 mmol/L (3.70-5.30); Sodium 130.8 mmol/L (133-146); pH (venous) 7.43 (7.32-7.43)
[2021-09-29 17:35] LABS: Hemoglobin 13.1 g/dL (12.0-16.0); Mean Corpuscular HGB CONC 32.7 g/dL (32.0-36.0); Mean Corpuscular Volume 88.6 fL (78.0-98.0); Mean Platelet Volume 8.5 fL (7.4-10.4); Platelet Count 214 thou/uL (130-400); RBC Distribution Width 12.4 % (11.5-14.5); Red Blood Cell (RBC) Count 4.52 mill/uL (4.20-5.40); White Blood Cell (WBC) Count 7.6 thou/uL (4.8-10.8)
[2021-09-29 17:54] LABS: Band 11 % (5-11); Lymphocytes 13 % (21-51); MDiff Complete? YES; Monocytes 11 % (0-10); Neutrophil 61 % (42-75); Platelet Morphology Comment Appears Adequate; RBC Morphology Normal; Reactive Lymphocytes 3 % (0-10)
[2021-09-29 17:59] LABS: ALT (SGPT) 16 U/L (8-55); AST (SGOT) 23 U/L (5-34); Albumin 3.8 g/dL (3.4-4.8); Alkaline Phosphatase 68 U/L (40-110); Anion Gap 14 mmol/L (10-20); BUN (Urea Nitrogen) 26 mg/dL (9.8-20.1); Bilirubin, Total 1.3 mg/dL (0.2-1.2); Calc. Creatinine Clearance 0 mL/min (70-130); Calcium 9.5 mg/dL (7.8-10.44); Carbon Dioxide 28 mmol/L (23-31); Chloride 94 mmol/L (98-107); Globulin 3.5 g/dL (2.4-3.5); Glucose 206 mg/dL (83-110); Magnesium 1.7 mg/dL (1.6-2.6); Potassium 3.5 mmol/L (3.5-5.1); Protein, Total 7.3 g/dL (5.8-8.1); Sodium 132 mmol/L (136-145)
[2021-09-29 18:16] LABS: CKMB 0.5 ng/mL (0-6.6)
[2021-09-29 19:35] LABS: Bilirubin Negative (Negative); Blood, Urine Negative (Negative); Clarity Clear (Clear); Glucose, Urine (Dipstick) Normal (Negative); Ketone, Urine Negative (Negative); Leukocyte Negative Leu/uL (Negative); Nitrite Negative (Negative); Protein, Urine (Dipstick) 20 mg/dL (Neg-Trace); Specific Gravity, Urine 1.017 (1.002-1.036); Urobilinogen Normal mg/dL (Less than 2); pH, Urine 5.5 (5.0-9.0)
[2021-09-29 20:44] LABS: SARS-CoV-2 NAA Rapid Test Not Detected (NotDetected)
[2021-09-29] MEDS ORDERED: Oseltamivir 75 MG CAP PO SCH (22:30)
[2021-09-29 23:42] LABS: Troponin I 0.049 ng/mL (< 0.028)
[2021-09-30 00:38] VITALS: BMI 20.5
[2021-09-30 01:45] LABS: Troponin I 0.032 ng/mL (< 0.028)
[2021-09-30] MEDS ORDERED: Acetaminophen 325 MG TAB PO PRN (08:00)
[2021-09-30] MEDS ORDERED: Sodium Chloride 0.9% 1,000 ML IV SCH (08:15)
[2021-09-30] MEDS ORDERED: Ezetimibe 10 MG TAB PO SCH (09:00)
[2021-09-30] MEDS ORDERED: Clopidogrel Bisulfate 75 MG TAB PO SCH (09:00)
[2021-09-30] MEDS ORDERED: Oseltamivir 75 MG CAP PO SCH (09:00)
[2021-09-30] MEDS ORDERED: sitaGLIPtin Phosphate 25 MG TAB PO SCH (09:00)
[2021-09-30] MEDS ORDERED: Non-Formulary Item 1 EACH (Carvedilol [Carvedilol] 12.5 MG Tablet) PO SCH (09:00)
[2021-09-30] MEDS ORDERED: Aspirin 81 mg Enteric Coated Tablet PO SCH (09:00)
[2021-09-30] MEDS ORDERED: Hydrochlorothiazide 25 MG TAB PO SCH (09:00)
[2021-09-30] MEDS ORDERED: Alogliptin 6.25 MG TAB PO SCH (09:00)
[2021-09-30] MEDS ORDERED: Amlodipine 10 MG TAB PO SCH (09:00)
[2021-09-30] MEDS ORDERED: Carvedilol 6.25 MG TAB PO SCH (09:00)
[2021-09-30] MEDS ORDERED: Guaifenesin DM 100-10/5 ML UDCUP PO PRN (10:34)
[2021-09-30] MEDS ORDERED: Benzonatate 100 MG CAP PO PRN (10:34)
[2021-09-30 16:16] VITALS: BP 122/58; TEMP 98.3
== END 2021-09-30 16:48 | disposition home or self-care (01) ==
LOC: ERS 16:26 → 2SW 22:17
PROVIDERS: ADMIT Internal Medicine; ATTEND Internal Medicine
DX: J10.1 Influenza due to other identified influenza virus with other respiratory manifestations (principal); I12.9 Hypertensive chronic kidney disease with stage 1 through stage 4 chronic kidney disease, or unspecified chronic kidney disease; E11.22 Type 2 diabetes mellitus with diabetic chronic kidney disease; N18.4 Chronic kidney disease, stage 4 (severe); R77.8 Other specified abnormalities of plasma proteins; E87.1 Hypo-osmolality and hyponatremia; I25.10 Atherosclerotic heart disease of native coronary artery without angina pectoris; E78.5 Hyperlipidemia, unspecified; K27.9 Peptic ulcer, site unspecified, unspecified as acute or chronic, without hemorrhage or perforation; I25.2 Old myocardial infarction; Z79.02 Long term (current) use of antithrombotics/antiplatelets; Z79.82 Long term (current) use of aspirin; Z79.84 Long term (current) use of oral hypoglycemic drugs; Z79.899 Other long term (current) drug therapy; Z88.0 Allergy status to penicillin; Z95.1 Presence of aortocoronary bypass graft; Z20.822 Contact with and (suspected) exposure to COVID-19
CPT/HCPCS: 0240U; 71046; 80053; 81003; 82553; 82805; 82962; 83605; 83735; 83880; 84484 ×3; 85025; 93005; 99284; 36415; 36416; G0378; J7050

== ENCOUNTER 2022-06-16 11:49 | Outpatient (CLI) | payer MEDICARE | END 2022-06-16 11:50 | disposition home or self-care (01) | LOC: BICRAD 11:49 | PROVIDERS: ATTEND Nurse Practitioner Family | DX: R06.02 Shortness of breath (principal) | CPT/HCPCS: 36415; 71046; 83880; 85379 ==

== ENCOUNTER 2022-07-22 20:01 | Inpatient (IN) | payer MEDICARE ==
[2022-07-22 22:15] LABS: #Basophils 0.1 thou/uL (0.0-0.2); #Eosinphils 0.1 thou/uL (0.0-0.7); #Lymphocytes 1.3 thou/uL (1.20-3.40); #Monocytes 0.7 thou/uL (0.11-0.59); #Neutrophils 4.2 thou/uL (1.40-6.50); %Basophils 0.9 % (0.0-1.0); %Eosinophils 1.6 % (0.0-10.0); %Lymphocytes 20.5 % (21.0-51.0); %Monocytes 10.6 % (0.0-10.0); %Neutrophils 66.5 % (42.0-75.0); Hemoglobin 12.2 g/dL (12.0-16.0); Mean Corpuscular HGB CONC 32.1 g/dL (32.0-36.0); Mean Corpuscular Hemoglobin 28.6 pg (27.0-31.0); Mean Platelet Volume 8.8 fL (7.4-10.4); Platelet Count 279 thou/uL (130-400); RBC Distribution Width 11.7 % (11.5-14.5); Red Blood Cell (RBC) Count 4.27 mill/uL (4.20-5.40); White Blood Cell (WBC) Count 6.4 thou/uL (4.8-10.8)
[2022-07-22 23:14] LABS: ALT (SGPT) Less than 7 U/L (8-55); AST (SGOT) 12 U/L (5-34); Albumin 4.3 g/dL (3.4-4.8); Alkaline Phosphatase 52 U/L (40-110); Anion Gap 20 mmol/L (10-20); BUN (Urea Nitrogen) 76 mg/dL (9.8-20.1); Bilirubin, Total 1.6 mg/dL (0.2-1.2); Calc. Creatinine Clearance 0 mL/min (70-130); Carbon Dioxide 27 mmol/L (23-31); Chloride 87 mmol/L (98-107); Estimated GFR 9; Globulin 3.8 g/dL (2.4-3.5); Glucose 189 mg/dL (83-110); Lipase 47 U/L (8-78); Potassium 3.1 mmol/L (3.5-5.1); Protein, Total 8.1 g/dL (5.8-8.1); Sodium 131 mmol/L (136-145)
[2022-07-22] MEDS ORDERED: Aspirin Chewable 81 MG TAB ONE (23:57)
[2022-07-22] MEDS ORDERED: Nitrazine Tape 1 ROLL ONE (23:57)
[2022-07-22] MEDS ORDERED: Nitroglycerin 2% Ointment 1 INCH/1 GM Packet ONE (23:57)
[2022-07-22] MEDS ORDERED: Furosemide 40 MG/4 ML VIAL ONE (23:57)
[2022-07-23] MEDS ORDERED: Ondansetron ODT 4 MG TAB SL PRN (02:45)
[2022-07-23] MEDS ORDERED: Ondansetron PF 4 MG/2 ML Vial IVP PRN (02:45)
[2022-07-23 02:54] LABS: Troponin I 0.077 ng/mL (< 0.028)
[2022-07-23] MEDS ORDERED: Acetaminophen 325 MG TAB PO PRN (02:59)
[2022-07-23] MEDS ORDERED: Sodium Chloride 0.9% 500 ML IV SCH ×3 (03:15→07:58)
[2022-07-23] MEDS ORDERED: Dextrose 5% in Water 1,000 ML IV PRN (03:19)
[2022-07-23] MEDS ORDERED: Dextrose 50% Abboject 50 ML SYRINGE SLOW IVP PRN (03:19)
[2022-07-23] MEDS ORDERED: HumaLOG 300 UNITS/3 ML VIAL SC PRN (03:19)
[2022-07-23 03:23] VITALS: BMI 20.9
[2022-07-23] MEDS ORDERED: Potassium Chloride 20 MEQ TAB PO SCH ×2 (03:30→06:45)
[2022-07-23 05:13] LABS: #Basophils 0.1 thou/uL (0.0-0.2); #Eosinphils 0.1 thou/uL (0.0-0.7); #Lymphocytes 1.6 thou/uL (1.20-3.40); #Monocytes 0.9 thou/uL (0.11-0.59); #Neutrophils 4.1 thou/uL (1.40-6.50); %Basophils 0.9 % (0.0-1.0); %Eosinophils 2.1 % (0.0-10.0); %Monocytes 13.2 % (0.0-10.0); %Neutrophils 60.8 % (42.0-75.0); Mean Corpuscular HGB CONC 33.2 g/dL (32.0-36.0); Mean Corpuscular Hemoglobin 29.6 pg (27.0-31.0); Mean Corpuscular Volume 89.2 fL (78.0-98.0); Mean Platelet Volume 8.7 fL (7.4-10.4); Platelet Count 280 thou/uL (130-400); RBC Distribution Width 11.7 % (11.5-14.5); Red Blood Cell (RBC) Count 4.07 mill/uL (4.20-5.40); White Blood Cell (WBC) Count 6.7 thou/uL (4.8-10.8)
[2022-07-23 05:34] LABS: Troponin I 0.088 ng/mL (< 0.028)
[2022-07-23 06:08] LABS: ALT (SGPT) Less than 7 U/L (8-55); AST (SGOT) 13 U/L (5-34); Alkaline Phosphatase 49 U/L (40-110); Anion Gap 19 mmol/L (10-20); BUN (Urea Nitrogen) 77 mg/dL (9.8-20.1); Bilirubin, Total 1.4 mg/dL (0.2-1.2); Calc. Creatinine Clearance 11 mL/min (70-130); Calcium 10.6 mg/dL (7.8-10.44); Carbon Dioxide 29 mmol/L (23-31); Chloride 90 mmol/L (98-107); Estimated GFR 10; Globulin 3.6 g/dL (2.4-3.5); Glucose 99 mg/dL (83-110); Magnesium 1.9 mg/dL (1.6-2.6); Protein, Total 7.6 g/dL (5.8-8.1); Sodium 135 mmol/L (136-145)
[2022-07-23 06:18] LABS: Potassium 2.6 mmol/L (3.5-5.1)
[2022-07-23] MEDS ORDERED: Potassium Bicarbonate/Cit Ac 20 MEQ TAB PO SCH (08:00)
[2022-07-23] MEDS ORDERED: Carvedilol 6.25 MG TAB PO SCH (09:00)
[2022-07-23] MEDS: Ezetimibe 10 MG TAB PO SCH (10:12)
[2022-07-23] MEDS: Potassium Chloride 20 MEQ in Premix Bag 1 BAG IVPB SCH ×2 (10:12→13:37)
[2022-07-23] MEDS: Aspirin 81 mg Enteric Coated Tablet PO SCH (10:12)
[2022-07-23 12:23] LABS: Bacteria/HPF None Seen HPF (None Seen); Bilirubin Negative (Negative); Blood, Urine Negative (Negative); Clarity Clear (Clear); Glucose, Urine (Dipstick) Normal (Negative); Ketone, Urine Negative (Negative); Leukocyte 75 Leu/uL (Negative); Nitrite Negative (Negative); Protein, Urine (Dipstick) Negative (Neg-Trace); RBC/HPF 0-3 HPF (0-3); Specific Gravity, Urine 1.009 (1.002-1.036); Squamous Epithelial 0-3 HPF (0-3); Urobilinogen Normal mg/dL (Less than 2); WBC/HPF 0-3 HPF (0-3); pH, Urine 6.5 (5.0-9.0)
[2022-07-23 12:26] LABS: Urine Culture Reflex Yes Yes
[2022-07-23 13:13] LABS: Creatinine, Urine 79.31 mg/dL (47-110); Protein, Urine Random Quant Less than 10 mg/dL (1-14); Sodium, Urine 56 mmol/L (Not Available); Urea Nitrogen, Random Urine 288 mg/dl
[2022-07-23 13:26] LABS: Anion Gap 16 mmol/L (10-20); BUN (Urea Nitrogen) 75 mg/dL (9.8-20.1); Calc. Creatinine Clearance 11 mL/min (70-130); Calcium 10.7 mg/dL (7.8-10.44); Carbon Dioxide 29 mmol/L (23-31); Chloride 93 mmol/L (98-107); Estimated GFR 10; Glucose 232 mg/dL (83-110); Potassium 3.7 mmol/L (3.5-5.1); Sodium 134 mmol/L (136-145)
[2022-07-23] MEDS: Amlodipine 10 MG TAB PO SCH (15:03)
[2022-07-23] MEDS: Sodium Chloride 0.9% 1,000 ML IV SCH (15:03)
[2022-07-23] MEDS: Carvedilol 6.25 MG TAB PO SCH ×3 (15:04→21:27)
[2022-07-23] MEDS: Atorvastatin Calcium 40 MG TAB PO SCH (21:26)
[2022-07-24] MEDS: Sodium Chloride 0.9% 1,000 ML IV SCH ×2 (01:08→18:18)
[2022-07-24 08:09] LABS: Albumin 3.7 g/dL (3.4-4.8); Anion Gap 14 mmol/L (10-20); BUN (Urea Nitrogen) 53 mg/dL (9.8-20.1); BUN/Creatinine Ratio 17.32; Calc. Creatinine Clearance 16 mL/min (70-130); Calcium 9.9 mg/dL (7.8-10.44); Carbon Dioxide 25 mmol/L (23-31); Chloride 102 mmol/L (98-107); Estimated GFR 16; Glucose 175 mg/dL (83-110); Phosphorus 2.8 mg/dL (2.3-4.7); Potassium 3.5 mmol/L (3.5-5.1); Sodium 137 mmol/L (136-145)
[2022-07-24] MEDS ORDERED: Potassium Chloride 20 MEQ TAB PO SCH (08:15)
[2022-07-24] MEDS ORDERED: ADENOSINE 60 MG/20 ML VIAL ONE (09:40)
[2022-07-24] MEDS: Aspirin 81 mg Enteric Coated Tablet PO SCH (11:43)
[2022-07-24] MEDS: Ezetimibe 10 MG TAB PO SCH (11:43)
[2022-07-24] MEDS: Carvedilol 6.25 MG TAB PO SCH ×2 (11:43→20:40)
[2022-07-24] MEDS: Amlodipine 10 MG TAB PO SCH (11:43)
[2022-07-24] MEDS: Atorvastatin Calcium 40 MG TAB PO SCH (20:40)
[2022-07-25] MEDS: Sodium Chloride 0.9% 1,000 ML IV SCH (04:19)
[2022-07-25 05:59] LABS: Albumin 3.3 g/dL (3.4-4.8); Anion Gap 12 mmol/L (10-20); BUN (Urea Nitrogen) 37 mg/dL (9.8-20.1); BUN/Creatinine Ratio 15.04; Calc. Creatinine Clearance 20 mL/min (70-130); Calcium 9.6 mg/dL (7.8-10.44); Carbon Dioxide 21 mmol/L (23-31); Chloride 107 mmol/L (98-107); Estimated GFR 20; Glucose 230 mg/dL (83-110); Phosphorus 2.5 mg/dL (2.3-4.7); Potassium 4.2 mmol/L (3.5-5.1); Sodium 136 mmol/L (136-145)
[2022-07-25] MEDS ORDERED: Sodium Chloride 0.9% 1,000 ML IV SCH (09:16)
[2022-07-25] MEDS: Amlodipine 10 MG TAB PO SCH (09:20)
[2022-07-25] MEDS: Aspirin 81 mg Enteric Coated Tablet PO SCH (09:20)
[2022-07-25] MEDS: Carvedilol 6.25 MG TAB PO SCH ×2 (09:20→20:37)
[2022-07-25] MEDS: Ezetimibe 10 MG TAB PO SCH (09:21)
[2022-07-25] MEDS: Sodium Bicarbonate Tab 325 MG TAB PO SCH ×2 (09:21→20:37)
[2022-07-25 10:37] LABS: Magnesium 1.5 mg/dL (1.6-2.6)
[2022-07-25] MEDS: Lactated Ringer's 1,000 ML IV SCH ×2 (11:19→20:40)
[2022-07-25] MEDS: Atorvastatin Calcium 40 MG TAB PO SCH (20:37)
[2022-07-26 05:01] LABS: Anion Gap 10 mmol/L (10-20); BUN (Urea Nitrogen) 24 mg/dL (9.8-20.1); BUN/Creatinine Ratio 10.86; Calc. Creatinine Clearance 22 mL/min (70-130); Calcium 9.5 mg/dL (7.8-10.44); Carbon Dioxide 24 mmol/L (23-31); Chloride 111 mmol/L (98-107); Estimated GFR 23; Glucose 63 mg/dL (83-110); Phosphorus 2.4 mg/dL (2.3-4.7); Potassium 3.9 mmol/L (3.5-5.1); Sodium 141 mmol/L (136-145)
[2022-07-26] MEDS ORDERED: FLU VACC QS2022-23(65YR UP)/PF 240 MCG/0.7 ML SYRINGE IM ONE (09:00)
[2022-07-26] MEDS: Sodium Bicarbonate Tab 325 MG TAB PO SCH (09:38)
[2022-07-26] MEDS: Amlodipine 10 MG TAB PO SCH (09:38)
[2022-07-26] MEDS: Carvedilol 6.25 MG TAB PO SCH (09:39)
[2022-07-26] MEDS: Ezetimibe 10 MG TAB PO SCH (09:39)
[2022-07-26] MEDS: Aspirin 81 mg Enteric Coated Tablet PO SCH (09:39)
[2022-07-28 10:54] VITALS: BP 133/50; TEMP 98.5
== END 2022-07-26 16:00 | disposition home or self-care (01) | DRG 683 ==
LOC: ERS 20:01 → 2NO 07-23 01:01 → OBSVTOIN 07-24 11:37
PROVIDERS: ADMIT Internal Medicine; ATTEND Hospitalist
DX: N17.9 Acute kidney failure, unspecified (principal); E87.1 Hypo-osmolality and hyponatremia; E87.20 Acidosis, unspecified; Z20.822 Contact with and (suspected) exposure to COVID-19; N18.30 Chronic kidney disease, stage 3 unspecified; E11.22 Type 2 diabetes mellitus with diabetic chronic kidney disease; I25.10 Atherosclerotic heart disease of native coronary artery without angina pectoris; I12.9 Hypertensive chronic kidney disease with stage 1 through stage 4 chronic kidney disease, or unspecified chronic kidney disease; E87.6 Hypokalemia; E83.52 Hypercalcemia; R77.8 Other specified abnormalities of plasma proteins; E78.5 Hyperlipidemia, unspecified; T50.2X5A Adverse effect of carbonic-anhydrase inhibitors, benzothiadiazides and other diuretics, initial encounter; R07.89 Other chest pain; K52.9 Noninfective gastroenteritis and colitis, unspecified; E86.9 Volume depletion, unspecified; Z88.0 Allergy status to penicillin; Z95.1 Presence of aortocoronary bypass graft; Z79.899 Other long term (current) drug therapy; Z79.82 Long term (current) use of aspirin; Z79.84 Long term (current) use of oral hypoglycemic drugs; Z83.3 Family history of diabetes mellitus; Z82.49 Family history of ischemic heart disease and other diseases of the circulatory system
CPT/HCPCS: 36415; 36416; 71045; 76770; 78452; 80053; 80069; 81001; 82306; 82550; 82553; 82570; 83690; 83735; 83880; 83970; 84156; 84300; 84443; 84484; 84540; 85025; 87086; 93005; 93017; 93306; 96375; 96376; A9500; G0378; J0153; J1940; J3480; J7030; J7050; J7120; U0003; U0005

== ENCOUNTER 2022-09-19 15:58 | Inpatient (IN) | payer MEDICARE ==
[2022-09-19 16:57] LABS: #Eosinphils 0.3 thou/uL (0.0-0.7); #Lymphocytes 1.2 thou/uL (1.20-3.40); #Monocytes 0.7 thou/uL (0.11-0.59); #Neutrophils 3.9 thou/uL (1.40-6.50); %Basophils 0.4 % (0.0-1.0); %Eosinophils 4.3 % (0.0-10.0); %Lymphocytes 19.9 % (21.0-51.0); %Monocytes 11.7 % (0.0-10.0); %Neutrophils 63.6 % (42.0-75.0); Hemoglobin 11.8 g/dL (12.0-16.0); Mean Corpuscular HGB CONC 32.1 g/dL (32.0-36.0); Mean Corpuscular Volume 93.4 fl (78.0-98.0); Mean Platelet Volume 8.4 fL (7.4-10.4); Platelet Count 310 10x3/uL (130-400); RBC Distribution Width 13.6 % (11.5-14.5); Red Blood Cell (RBC) Count 3.92 mill/uL (4.20-5.40); White Blood Cell (WBC) Count 6.2 10x3/uL (4.8-10.8)
[2022-09-19 17:19] LABS: ALT (SGPT) 7 U/L (8-55); AST (SGOT) 11 U/L (5-34); Albumin 4.4 g/dL (3.4-4.8); Alkaline Phosphatase 55 U/L (40-110); Anion Gap 15 mmol/L (10-20); BUN (Urea Nitrogen) 29 mg/dL (9.8-20.1); Bilirubin, Total 1.1 mg/dL (0.2-1.2); CK (CPK) 33 U/L (29-168); Calc. Creatinine Clearance 0 mL/min (70-130); Calcium 10.8 mg/dL (7.8-10.44); Carbon Dioxide 18 mmol/L (23-31); Chloride 107 mmol/L (98-107); Estimated GFR 13; Globulin 3.3 g/dL (2.4-3.5); Glucose 231 mg/dL (83-110); Lipase 30 U/L (8-78); Protein, Total 7.7 g/dL (5.8-8.1); Sodium 136 mmol/L (136-145)
[2022-09-19] MEDS ORDERED: Aspirin Chewable 81 MG TAB ONE (17:36)
[2022-09-19 17:42] LABS: CKMB 1.2 ng/mL (0-6.6)
[2022-09-19] MEDS ORDERED: Acetaminophen 325 MG TAB PO PRN (17:52)
[2022-09-19] MEDS ORDERED: Ondansetron ODT 4 MG TAB PO PRN (17:52)
[2022-09-19] MEDS ORDERED: Ondansetron PF 4 MG/2 ML Vial IVP PRN (17:52)
[2022-09-19 18:02] LABS: SARS-CoV-2 NAA Rapid Test Not Detected (NotDetected)
[2022-09-19] MEDS ORDERED: HumaLOG 300 UNITS/3 ML VIAL SC PRN (18:35)
[2022-09-19] MEDS ORDERED: Dextrose 50% Abboject 50 ML SYRINGE SLOW IVP PRN (18:35)
[2022-09-19] MEDS ORDERED: Dextrose 5% in Water 1,000 ML IV PRN (18:35)
[2022-09-19 20:41] VITALS: BMI 27.6
[2022-09-19] MEDS: Heparin 5,000 UNITS/ML VIAL SC SCH (21:31)
[2022-09-19] MEDS: Sodium Chloride 0.9% 1,000 ML IV SCH (21:34)
[2022-09-20] MEDS ORDERED: Melatonin 3 MG TAB PO PRN (01:39)
[2022-09-20] MEDS: Sodium Chloride 0.9% 1,000 ML IV SCH (06:03)
[2022-09-20 07:01] LABS: #Eosinphils 0.2 thou/uL (0.0-0.7); #Lymphocytes 1.3 thou/uL (1.20-3.40); #Monocytes 0.7 thou/uL (0.11-0.59); #Neutrophils 3.1 thou/uL (1.40-6.50); %Basophils 0.2 % (0.0-1.0); %Eosinophils 4.4 % (0.0-10.0); %Lymphocytes 24.2 % (21.0-51.0); %Monocytes 13.7 % (0.0-10.0); %Neutrophils 57.6 % (42.0-75.0); Hemoglobin 9.7 g/dL (12.0-16.0); Mean Corpuscular HGB CONC 32.5 g/dL (32.0-36.0); Mean Corpuscular Hemoglobin 30.4 pg (27.0-31.0); Mean Corpuscular Volume 93.6 fl (78.0-98.0); Mean Platelet Volume 8.2 fL (7.4-10.4); Platelet Count 252 10x3/uL (130-400); RBC Distribution Width 13.4 % (11.5-14.5); White Blood Cell (WBC) Count 5.3 10x3/uL (4.8-10.8)
[2022-09-20 07:21] LABS: Anion Gap 13 mmol/L (10-20); BUN (Urea Nitrogen) 25 mg/dL (9.8-20.1); Calc. Creatinine Clearance 16 mL/min (70-130); Carbon Dioxide 15 mmol/L (23-31); Chloride 114 mmol/L (98-107); Estimated GFR 17; Glucose 114 mg/dL (83-110); Potassium 3.5 mmol/L (3.5-5.1); Sodium 138 mmol/L (136-145)
[2022-09-20] MEDS: Sodium Bicarbonate 150 MEQ in Dextrose 5% in Water 1,000 ML IV SCH ×2 (08:40→20:13)
[2022-09-20] MEDS: Heparin 5,000 UNITS/ML VIAL SC SCH ×3 (08:42→20:17)
[2022-09-20] MEDS ORDERED: FLU VACC QS2022-23(65YR UP)/PF 240 MCG/0.7 ML SYRINGE IM ONE (09:00)
[2022-09-20 10:04] LABS: Troponin I 0.043 ng/mL (< 0.028)
[2022-09-20] MEDS ORDERED: Amlodipine 10 MG TAB PO SCH (12:15)
[2022-09-20] MEDS: Carvedilol 6.25 MG TAB PO SCH (20:16)
[2022-09-20] MEDS: Atorvastatin Calcium 40 MG TAB PO SCH (20:17)
[2022-09-20 21:32] LABS: 24 Hr Creatinine 680.62 mg/24 hr (710-1650); Creatinine, Urine 22.17 mg/dL (47-110)
[2022-09-21] MEDS: Sodium Bicarbonate 150 MEQ in Dextrose 5% in Water 1,000 ML IV SCH (05:05)
[2022-09-21 05:34] LABS: Anion Gap 13 mmol/L (10-20); BUN (Urea Nitrogen) 20 mg/dL (9.8-20.1); Calc. Creatinine Clearance 17 mL/min (70-130); Calcium 9.8 mg/dL (7.8-10.44); Carbon Dioxide 24 mmol/L (23-31); Chloride 107 mmol/L (98-107); Estimated GFR 18; Glucose 136 mg/dL (83-110); Potassium 3.1 mmol/L (3.5-5.1); Sodium 141 mmol/L (136-145)
[2022-09-21 05:52] LABS: Band 7 % (5-11); Eosinophils 4 % (0-10); Hemoglobin 10.1 g/dL (12.0-16.0); Lymphocytes 18 % (21-51); MDiff Complete? YES; Mean Corpuscular Hemoglobin 30.8 pg (27.0-31.0); Mean Corpuscular Volume 93.3 fl (78.0-98.0); Mean Platelet Volume 8.5 fL (7.4-10.4); Monocytes 15 % (0-10); Neutrophil 56 % (42-75); Platelet Count 236 10x3/uL (130-400); RBC Distribution Width 13.4 % (11.5-14.5); Red Blood Cell (RBC) Count 3.28 mill/uL (4.20-5.40); White Blood Cell (WBC) Count 4.8 10x3/uL (4.8-10.8)
[2022-09-21] MEDS: Lactated Ringer's 1,000 ML IV SCH ×2 (06:46→16:16)
[2022-09-21] MEDS: Carvedilol 6.25 MG TAB PO SCH ×2 (07:45→20:56)
[2022-09-21] MEDS: Famotidine 20 MG TAB PO SCH (07:45)
[2022-09-21] MEDS: Amlodipine 10 MG TAB PO SCH (07:45)
[2022-09-21] MEDS: Aspirin Chewable 81 MG TAB PO SCH (07:46)
[2022-09-21] MEDS: Heparin 5,000 UNITS/ML VIAL SC SCH ×3 (07:49→20:57)
[2022-09-21] MEDS ORDERED: Potassium Chloride 20 MEQ TAB PO SCH ×2 (08:45→17:00)
[2022-09-21] MEDS ORDERED: Glimepiride 4 MG TAB PO SCH (16:30)
[2022-09-21] MEDS: Atorvastatin Calcium 40 MG TAB PO SCH (20:56)
[2022-09-21] MEDS ORDERED: Mirtazapine 30 MG TAB PO SCH (21:00)
[2022-09-22] MEDS: Lactated Ringer's 1,000 ML IV SCH (01:47)
[2022-09-22 04:59] LABS: #Eosinphils 0.2 thou/uL (0.0-0.7); #Lymphocytes 1.4 thou/uL (1.20-3.40); #Monocytes 0.8 thou/uL (0.11-0.59); %Basophils 0.2 % (0.0-1.0); %Lymphocytes 25.7 % (21.0-51.0); %Neutrophils 56.1 % (42.0-75.0); Hemoglobin 9.8 g/dL (12.0-16.0); Mean Corpuscular HGB CONC 33.3 g/dL (32.0-36.0); Mean Corpuscular Hemoglobin 31.4 pg (27.0-31.0); Mean Corpuscular Volume 94.1 fl (78.0-98.0); Mean Platelet Volume 8.5 fL (7.4-10.4); Platelet Count 252 10x3/uL (130-400); RBC Distribution Width 13.4 % (11.5-14.5); Red Blood Cell (RBC) Count 3.12 mill/uL (4.20-5.40); White Blood Cell (WBC) Count 5.4 10x3/uL (4.8-10.8)
[2022-09-22 05:17] LABS: Anion Gap 12 mmol/L (10-20); BUN (Urea Nitrogen) 19 mg/dL (9.8-20.1); Calc. Creatinine Clearance 15 mL/min (70-130); Calcium 10.5 mg/dL (7.8-10.44); Carbon Dioxide 21 mmol/L (23-31); Chloride 112 mmol/L (98-107); Estimated GFR 15; Magnesium 1.8 mg/dL (1.6-2.6); Potassium 3.9 mmol/L (3.5-5.1); Sodium 141 mmol/L (136-145)
[2022-09-22 05:21] LABS: Glucose 48 mg/dL (83-110)
[2022-09-22] MEDS ORDERED: predniSONE 20 MG TAB PO SCH (09:00)
[2022-09-22] MEDS: Amlodipine 10 MG TAB PO SCH (09:50)
[2022-09-22] MEDS: Aspirin Chewable 81 MG TAB PO SCH (09:50)
[2022-09-22] MEDS: Famotidine 20 MG TAB PO SCH (09:50)
[2022-09-22] MEDS: Carvedilol 6.25 MG TAB PO SCH ×2 (09:51→21:09)
[2022-09-22] MEDS: Heparin 5,000 UNITS/ML VIAL SC SCH ×3 (09:51→21:09)
[2022-09-22] MEDS: Sodium Bicarbonate 75 MEQ in Sodium Chloride 0.45% 1,000 ML IV SCH ×2 (13:45→23:12)
[2022-09-22] MEDS: Sodium Bicarbonate Tab 325 MG TAB PO SCH ×2 (15:33→21:08)
[2022-09-22] MEDS: Atorvastatin Calcium 40 MG TAB PO SCH (21:09)
[2022-09-22] MEDS: Mirtazapine 30 MG TAB PO SCH (21:09)
[2022-09-23] MEDS: Lactated Ringer's 1,000 ML IV SCH (00:05)
[2022-09-23 05:09] LABS: Hemoglobin A1c 6.1 % (4.0-6.0)
[2022-09-23 05:21] LABS: #Monocytes 0.9 thou/uL (0.11-0.59); #Neutrophils 4.4 thou/uL (1.40-6.50); %Basophils 0.1 % (0.0-1.0); %Eosinophils 0.1 % (0.0-10.0); %Lymphocytes 16.5 % (21.0-51.0); %Monocytes 13.9 % (0.0-10.0); %Neutrophils 69.4 % (42.0-75.0); Hemoglobin 9.4 g/dL (12.0-16.0); Mean Corpuscular HGB CONC 31.5 g/dL (32.0-36.0); Mean Corpuscular Hemoglobin 29.5 pg (27.0-31.0); Mean Corpuscular Volume 93.8 fl (78.0-98.0); Platelet Count 235 10x3/uL (130-400); RBC Distribution Width 13.3 % (11.5-14.5); White Blood Cell (WBC) Count 6.3 10x3/uL (4.8-10.8)
[2022-09-23 05:21] LABS: Calcium 10.1 mg/dL (7.8-10.44); Chloride 105 mmol/L (98-107); Potassium 3.9 mmol/L (3.5-5.1); Sodium 135 mmol/L (136-145)
[2022-09-23 05:22] LABS: Glucose 368 mg/dL (83-110)
[2022-09-23 05:23] LABS: Carbon Dioxide 19 mmol/L (23-31)
[2022-09-23 05:25] LABS: Calc. Creatinine Clearance 14 mL/min (70-130); Estimated GFR 14
[2022-09-23 05:26] LABS: BUN (Urea Nitrogen) 24 mg/dL (9.8-20.1)
[2022-09-23 06:02] LABS: Anion Gap 15 mmol/L (10-20)
[2022-09-23] MEDS: Sodium Bicarbonate 75 MEQ in Sodium Chloride 0.45% 1,000 ML IV SCH ×3 (06:16→22:46)
[2022-09-23] MEDS: glipiZIDE 5 MG TAB PO SCH (08:20)
[2022-09-23] MEDS: Aspirin Chewable 81 MG TAB PO SCH (08:20)
[2022-09-23] MEDS: Amlodipine 10 MG TAB PO SCH (08:20)
[2022-09-23] MEDS: Famotidine 20 MG TAB PO SCH (08:21)
[2022-09-23] MEDS: Carvedilol 6.25 MG TAB PO SCH ×2 (08:21→21:40)
[2022-09-23] MEDS: Heparin 5,000 UNITS/ML VIAL SC SCH ×3 (08:21→21:42)
[2022-09-23] MEDS: Sodium Bicarbonate Tab 325 MG TAB PO SCH ×3 (08:22→21:49)
[2022-09-23 09:26] LABS: Bacteria/HPF None Seen HPF (None Seen); Bilirubin Negative (Negative); Blood, Urine Negative (Negative); CAUTI Indications for Culture Urological Procedure; Clarity Clear (Clear); Glucose, Urine (Dipstick) Greater than 1000 mg/dL (Negative); Ketone, Urine Negative (Negative); Leukocyte Negative Leu/uL (Negative); Nitrite Negative (Negative); Protein, Urine (Dipstick) Negative (Neg-Trace); RBC/HPF None Seen HPF (0-3); Specific Gravity, Urine 1.006 (1.002-1.036); Squamous Epithelial None Seen HPF (0-3); Urobilinogen Normal mg/dL (Less than 2); WBC/HPF 0-3 HPF (0-3)
[2022-09-23 09:27] LABS: Urine Culture Reflex Yes Yes
[2022-09-23 10:03] LABS: Creatinine, Urine Less than 20.00 mg/dL (47-110); Sodium, Urine 94 mmol/L (Not Available)
[2022-09-23] MEDS: HumaLOG 300 UNITS/3 ML VIAL SC PRN (11:20)
[2022-09-23] MEDS: Atorvastatin Calcium 40 MG TAB PO SCH (21:40)
[2022-09-23] MEDS: Mirtazapine 30 MG TAB PO SCH (21:42)
[2022-09-24 04:31] LABS: #Eosinphils 0.2 thou/uL (0.0-0.7); #Lymphocytes 1.5 thou/uL (1.20-3.40); #Monocytes 0.6 thou/uL (0.11-0.59); #Neutrophils 3.2 thou/uL (1.40-6.50); %Basophils 0.5 % (0.0-1.0); %Eosinophils 3.6 % (0.0-10.0); %Lymphocytes 27.5 % (21.0-51.0); %Monocytes 10.8 % (0.0-10.0); %Neutrophils 57.7 % (42.0-75.0); Hemoglobin 9.9 g/dL (12.0-16.0); Mean Corpuscular HGB CONC 32.8 g/dL (32.0-36.0); Mean Corpuscular Hemoglobin 30.6 pg (27.0-31.0); Mean Corpuscular Volume 93.5 fl (78.0-98.0); Mean Platelet Volume 8.9 fL (7.4-10.4); Platelet Count 237 10x3/uL (130-400); RBC Distribution Width 13.1 % (11.5-14.5); Red Blood Cell (RBC) Count 3.24 mill/uL (4.20-5.40); White Blood Cell (WBC) Count 5.6 10x3/uL (4.8-10.8)
[2022-09-24 04:53] LABS: Anion Gap 13 mmol/L (10-20); BUN (Urea Nitrogen) 21 mg/dL (9.8-20.1); Calc. Creatinine Clearance 15 mL/min (70-130); Calcium 9.8 mg/dL (7.8-10.44); Carbon Dioxide 26 mmol/L (23-31); Chloride 107 mmol/L (98-107); Estimated GFR 15; Glucose 91 mg/dL (83-110); Potassium 3.3 mmol/L (3.5-5.1); Sodium 143 mmol/L (136-145)
[2022-09-24] MEDS: Sodium Bicarbonate 75 MEQ in Sodium Chloride 0.45% 1,000 ML IV SCH ×3 (05:50→21:50)
[2022-09-24] MEDS ORDERED: Potassium Chloride 20 MEQ TAB PO SCH (07:15)
[2022-09-24] MEDS: Sodium Bicarbonate Tab 325 MG TAB PO SCH ×3 (09:51→21:04)
[2022-09-24] MEDS: Carvedilol 6.25 MG TAB PO SCH ×2 (09:51→21:04)
[2022-09-24] MEDS: Heparin 5,000 UNITS/ML VIAL SC SCH ×3 (09:52→21:05)
[2022-09-24] MEDS: Famotidine 20 MG TAB PO SCH (09:52)
[2022-09-24] MEDS: Aspirin Chewable 81 MG TAB PO SCH (09:52)
[2022-09-24] MEDS: Amlodipine 10 MG TAB PO SCH (09:53)
[2022-09-24] MEDS: glipiZIDE 5 MG TAB PO SCH (09:55)
[2022-09-24] MEDS ORDERED: NIFEdipine XL 60 MG TAB PO SCH (10:00)
[2022-09-24 13:12] LABS: Iron 80 ug/dL (50-170); Iron Binding Capacity, Total 250 mcg/dL (265-497)
[2022-09-24] MEDS: HumaLOG 300 UNITS/3 ML VIAL SC PRN (18:48)
[2022-09-24] MEDS: Mirtazapine 30 MG TAB PO SCH (21:04)
[2022-09-24] MEDS: NIFEdipine XL 60 MG TAB PO SCH (21:04)
[2022-09-24] MEDS: Atorvastatin Calcium 40 MG TAB PO SCH (21:05)
[2022-09-25] MEDS: Sodium Bicarbonate 75 MEQ in Sodium Chloride 0.45% 1,000 ML IV SCH (05:20)
[2022-09-25 05:32] LABS: #Eosinphils 0.3 thou/uL (0.0-0.7); #Lymphocytes 1.4 thou/uL (1.20-3.40); #Monocytes 0.6 thou/uL (0.11-0.59); #Neutrophils 3.9 thou/uL (1.40-6.50); %Basophils 0.2 % (0.0-1.0); %Eosinophils 4.7 % (0.0-10.0); %Lymphocytes 22.2 % (21.0-51.0); %Neutrophils 62.8 % (42.0-75.0); Hemoglobin 9.8 g/dL (12.0-16.0); Mean Corpuscular HGB CONC 31.9 g/dL (32.0-36.0); Mean Corpuscular Hemoglobin 29.8 pg (27.0-31.0); Mean Corpuscular Volume 93.6 fl (78.0-98.0); Mean Platelet Volume 8.6 fL (7.4-10.4); Platelet Count 264 10x3/uL (130-400); Red Blood Cell (RBC) Count 3.28 mill/uL (4.20-5.40); White Blood Cell (WBC) Count 6.3 10x3/uL (4.8-10.8)
[2022-09-25 05:43] LABS: Anion Gap 12 mmol/L (10-20); BUN (Urea Nitrogen) 21 mg/dL (9.8-20.1); Calc. Creatinine Clearance 15 mL/min (70-130); Calcium 9.3 mg/dL (7.8-10.44); Carbon Dioxide 26 mmol/L (23-31); Chloride 106 mmol/L (98-107); Estimated GFR 15; Glucose 121 mg/dL (83-110); Potassium 3.8 mmol/L (3.5-5.1); Sodium 140 mmol/L (136-145)
[2022-09-25] MEDS ORDERED: Epoetin (ESRD) 10,000 UNITS/ML VIAL SC SCH (07:00)
[2022-09-25 08:31] LABS: INR-International Normal Ratio 0.9; Prothrombin Time 12.7 sec (12.0-14.7)
[2022-09-25 08:32] LABS: PTT 30.5 sec (22.9-36.1)
[2022-09-25] MEDS: Famotidine 20 MG TAB PO SCH (08:53)
[2022-09-25] MEDS: Carvedilol 6.25 MG TAB PO SCH (08:53)
[2022-09-25] MEDS: NIFEdipine XL 60 MG TAB PO SCH (08:53)
[2022-09-25] MEDS: Heparin 5,000 UNITS/ML VIAL SC SCH (08:53)
[2022-09-25] MEDS: Sodium Bicarbonate Tab 325 MG TAB PO SCH (08:53)
[2022-09-25] MEDS: glipiZIDE 5 MG TAB PO SCH (08:53)
[2022-09-25 13:53] VITALS: BP 127/65; TEMP 98.1
== END 2022-09-25 13:50 | disposition home health service (06) | DRG 683 ==
LOC: ERS 15:58 → 2NO 18:04
PROVIDERS: ADMIT Family Medicine; ATTEND Family Medicine
DX: N17.9 Acute kidney failure, unspecified (principal); E87.1 Hypo-osmolality and hyponatremia; E87.20 Acidosis, unspecified; N39.0 Urinary tract infection, site not specified; Z20.822 Contact with and (suspected) exposure to COVID-19; I25.10 Atherosclerotic heart disease of native coronary artery without angina pectoris; E11.22 Type 2 diabetes mellitus with diabetic chronic kidney disease; I12.9 Hypertensive chronic kidney disease with stage 1 through stage 4 chronic kidney disease, or unspecified chronic kidney disease; B96.1 Klebsiella pneumoniae [K. pneumoniae] as the cause of diseases classified elsewhere; N18.4 Chronic kidney disease, stage 4 (severe); E83.52 Hypercalcemia; E86.9 Volume depletion, unspecified; D63.1 Anemia in chronic kidney disease; E87.5 Hyperkalemia; E11.649 Type 2 diabetes mellitus with hypoglycemia without coma; Z28.21 Immunization not carried out because of patient refusal; Z95.1 Presence of aortocoronary bypass graft; Z88.0 Allergy status to penicillin; Z82.49 Family history of ischemic heart disease and other diseases of the circulatory system; Z83.3 Family history of diabetes mellitus; Z79.84 Long term (current) use of oral hypoglycemic drugs; Z79.82 Long term (current) use of aspirin
CPT/HCPCS: 36415; 36416; 71045; 76770; 80048; 80053; 81001; 82164; 82340; 82550; 82553; 82570; 82668; 82728; 83036; 83540; 83550; 83690; 83735; 83880; 84300; 84484; 85025; 85610; 85730; 87086; 87186; 93005; 96360; 96361; J1644; J1815; J7050; J7070; J7120; J7512; Q4081

== ENCOUNTER 2022-11-14 22:30 | Inpatient (IN) | payer MEDICARE ==
[2022-11-14] MEDS ORDERED: Acetaminophen 325 MG TAB ONE (23:49)
[2022-11-15 00:11] LABS: #Basophils 0.1 thou/uL (0.0-0.2); #Eosinphils 0.1 thou/uL (0.0-0.7); #Lymphocytes 1.2 thou/uL (1.20-3.40); #Monocytes 0.7 thou/uL (0.11-0.59); #Neutrophils 2.9 thou/uL (1.40-6.50); %Basophils 1.5 % (0.0-1.0); %Eosinophils 2.8 % (0.0-10.0); %Lymphocytes 23.6 % (21.0-51.0); %Monocytes 14.5 % (0.0-10.0); %Neutrophils 57.6 % (42.0-75.0); Hemoglobin 14.1 g/dL (12.0-16.0); Mean Corpuscular HGB CONC 34.8 g/dL (32.0-36.0); Mean Corpuscular Hemoglobin 31.1 pg (27.0-31.0); Mean Corpuscular Volume 89.4 fl (78.0-98.0); Mean Platelet Volume 8.2 fL (7.4-10.4); Platelet Count 287 10x3/uL (130-400); Red Blood Cell (RBC) Count 4.53 mill/uL (4.20-5.40)
[2022-11-15 00:32] LABS: ALT (SGPT) 9 U/L (8-55); AST (SGOT) 16 U/L (5-34); Albumin 4.3 g/dL (3.4-4.8); Alkaline Phosphatase 52 U/L (40-110); Anion Gap 14 mmol/L (10-20); BUN (Urea Nitrogen) 33 mg/dL (9.8-20.1); Bilirubin, Total 1.2 mg/dL (0.2-1.2); Calc. Creatinine Clearance 0 mL/min (70-130); Carbon Dioxide 27 mmol/L (23-31); Chloride 96 mmol/L (98-107); Estimated GFR 18; Globulin 3.4 g/dL (2.4-3.5); Glucose 131 mg/dL (83-110); Lipase 27 U/L (8-78); Potassium 3.6 mmol/L (3.5-5.1); Protein, Total 7.7 g/dL (5.8-8.1); Sodium 133 mmol/L (136-145)
[2022-11-15 00:37] LABS: Calcium 15.7 mg/dL (7.8-10.44)
[2022-11-15 00:53] LABS: SARS-CoV-2 NAA Rapid Test Not Detected (NotDetected)
[2022-11-15 00:54] LABS: CKMB 1.6 ng/mL (0-6.6)
[2022-11-15] MEDS ORDERED: Calcitonin,Salmon,Synthetic 400 UNITS/2 ML SC SCH (01:00)
[2022-11-15 01:03] LABS: Phosphorus 2.9 mg/dL (2.3-4.7)
[2022-11-15] MEDS ORDERED: Acetaminophen 325 MG TAB PO PRN (02:44)
[2022-11-15] MEDS ORDERED: Dextrose 50% Abboject 50 ML SYRINGE SLOW IVP PRN (02:46)
[2022-11-15] MEDS ORDERED: Dextrose 5% in Water 1,000 ML IV PRN (02:46)
[2022-11-15] MEDS ORDERED: HumaLOG 300 UNITS/3 ML VIAL SC PRN (02:46)
[2022-11-15] MEDS ORDERED: hydrALAZINE 20 MG/ML VIAL ONE (03:19)
[2022-11-15] MEDS: Sodium Chloride 0.9% 1,000 ML IV SCH ×3 (04:49→20:52)
[2022-11-15] MEDS: Ondansetron PF 4 MG/2 ML Vial IVP PRN ×2 (04:49→11:18)
[2022-11-15 05:01] LABS: Anion Gap 15 mmol/L (10-20); BUN (Urea Nitrogen) 27 mg/dL (9.8-20.1); Calc. Creatinine Clearance 0 mL/min (70-130); Carbon Dioxide 19 mmol/L (23-31); Chloride 106 mmol/L (98-107); Estimated GFR 22; Glucose 159 mg/dL (83-110); Potassium 3.5 mmol/L (3.5-5.1); Sodium 136 mmol/L (136-145)
[2022-11-15 05:06] LABS: Calcium 13.5 mg/dL (7.8-10.44)
[2022-11-15 05:23] LABS: Troponin I 0.087 ng/mL (< 0.028)
[2022-11-15 06:02] LABS: Bilirubin Negative (Negative); Blood, Urine Negative (Negative); Clarity Clear (Clear); Glucose, Urine (Dipstick) 30 mg/dL (Negative); Ketone, Urine Negative (Negative); Leukocyte Negative Leu/uL (Negative); Nitrite Negative (Negative); Protein, Urine (Dipstick) Negative (Neg-Trace); Specific Gravity, Urine 1.006 (1.002-1.036); Urobilinogen Normal mg/dL (Less than 2); pH, Urine 6.5 (5.0-9.0)
[2022-11-15 06:24] LABS: #Eosinphils 0.1 thou/uL (0.0-0.7); #Lymphocytes 0.8 thou/uL (1.20-3.40); #Monocytes 0.8 thou/uL (0.11-0.59); #Neutrophils 5.5 thou/uL (1.40-6.50); %Basophils 0.3 % (0.0-1.0); %Eosinophils 1.5 % (0.0-10.0); %Lymphocytes 11.2 % (21.0-51.0); %Monocytes 11.5 % (0.0-10.0); %Neutrophils 75.5 % (42.0-75.0); Hemoglobin 12.4 g/dL (12.0-16.0); Mean Corpuscular HGB CONC 34.4 g/dL (32.0-36.0); Mean Corpuscular Hemoglobin 30.6 pg (27.0-31.0); Mean Corpuscular Volume 88.8 fl (78.0-98.0); Mean Platelet Volume 8.2 fL (7.4-10.4); Platelet Count 255 10x3/uL (130-400); Red Blood Cell (RBC) Count 4.06 mill/uL (4.20-5.40); White Blood Cell (WBC) Count 7.3 10x3/uL (4.8-10.8)
[2022-11-15 06:50] LABS: Troponin I 0.102 ng/mL (< 0.028)
[2022-11-15] MEDS: NIFEdipine XL 60 MG TAB PO SCH ×2 (08:11→20:51)
[2022-11-15] MEDS: Amlodipine 10 MG TAB PO SCH (08:11)
[2022-11-15] MEDS: Carvedilol 25 MG TAB PO SCH ×2 (08:11→16:57)
[2022-11-15] MEDS ORDERED: FLU VACC QS2022-23(65YR UP)/PF 240 MCG/0.7 ML SYRINGE IM ONE (09:00)
[2022-11-15 10:44] LABS: Reference Lab Name LABCORP
[2022-11-15 10:45] LABS: Ref Lab Test Ordered PTH RELATED PEPTIDE
[2022-11-15] MEDS: HumaLOG 300 UNITS/3 ML VIAL SC PRN ×2 (12:59→16:55)
[2022-11-15] MEDS: Atorvastatin Calcium 40 MG TAB PO SCH (20:51)
[2022-11-16] MEDS: Sodium Chloride 0.9% 1,000 ML IV SCH ×4 (04:52→23:21)
[2022-11-16 05:35] LABS: #Eosinphils 0.2 thou/uL (0.0-0.7); #Lymphocytes 1.2 thou/uL (1.20-3.40); #Monocytes 0.9 thou/uL (0.11-0.59); #Neutrophils 5.3 thou/uL (1.40-6.50); %Basophils 0.1 % (0.0-1.0); %Eosinophils 2.5 % (0.0-10.0); %Lymphocytes 15.4 % (21.0-51.0); %Monocytes 12.1 % (0.0-10.0); %Neutrophils 69.8 % (42.0-75.0); Hemoglobin 11.5 g/dL (12.0-16.0); Mean Corpuscular HGB CONC 32.1 g/dL (32.0-36.0); Mean Corpuscular Hemoglobin 29.6 pg (27.0-31.0); Mean Corpuscular Volume 92.2 fl (78.0-98.0); Mean Platelet Volume 8.3 fL (7.4-10.4); Platelet Count 276 10x3/uL (130-400); RBC Distribution Width 12.2 % (11.5-14.5); Red Blood Cell (RBC) Count 3.88 mill/uL (4.20-5.40); White Blood Cell (WBC) Count 7.6 10x3/uL (4.8-10.8)
[2022-11-16 05:55] LABS: Anion Gap 10 mmol/L (10-20); BUN (Urea Nitrogen) 23 mg/dL (9.8-20.1); Calc. Creatinine Clearance 19 mL/min (70-130); Carbon Dioxide 18 mmol/L (23-31); Chloride 110 mmol/L (98-107); Estimated GFR 23; Glucose 159 mg/dL (83-110); Potassium 3.1 mmol/L (3.5-5.1); Sodium 135 mmol/L (136-145)
[2022-11-16] MEDS: Carvedilol 25 MG TAB PO SCH ×2 (09:20→17:04)
[2022-11-16] MEDS ORDERED: Potassium Bicarbonate/Cit Ac 20 MEQ TAB PO SCH (09:45)
[2022-11-16] MEDS: NIFEdipine XL 60 MG TAB PO SCH ×2 (10:14→20:36)
[2022-11-16] MEDS: Amlodipine 10 MG TAB PO SCH (10:17)
[2022-11-16] MEDS: Atorvastatin Calcium 40 MG TAB PO SCH (20:36)
[2022-11-17 04:25] LABS: #Eosinphils 0.2 thou/uL (0.0-0.7); #Lymphocytes 1.2 thou/uL (1.20-3.40); #Monocytes 0.9 thou/uL (0.11-0.59); %Basophils 0.6 % (0.0-1.0); %Eosinophils 3.3 % (0.0-10.0); %Lymphocytes 19.5 % (21.0-51.0); %Neutrophils 62.6 % (42.0-75.0); Hemoglobin 10.8 g/dL (12.0-16.0); Mean Corpuscular Hemoglobin 32.1 pg (27.0-31.0); Mean Corpuscular Volume 91.9 fl (78.0-98.0); Mean Platelet Volume 7.9 fL (7.4-10.4); Platelet Count 246 10x3/uL (130-400); RBC Distribution Width 12.2 % (11.5-14.5); Red Blood Cell (RBC) Count 3.37 mill/uL (4.20-5.40); White Blood Cell (WBC) Count 6.4 10x3/uL (4.8-10.8)
[2022-11-17 04:44] LABS: Anion Gap 8 mmol/L (10-20); BUN (Urea Nitrogen) 18 mg/dL (9.8-20.1); Calc. Creatinine Clearance 21 mL/min (70-130); Calcium 10.8 mg/dL (7.8-10.44); Carbon Dioxide 18 mmol/L (23-31); Chloride 110 mmol/L (98-107); Estimated GFR 26; Glucose 129 mg/dL (83-110); Potassium 3.2 mmol/L (3.5-5.1); Sodium 133 mmol/L (136-145)
[2022-11-17 07:14] LABS: Magnesium 1.2 mg/dL (1.6-2.6); Phosphorus 1.6 mg/dL (2.3-4.7)
[2022-11-17] MEDS: Sodium Chloride 0.9% 1,000 ML IV SCH ×2 (07:25→16:15)
[2022-11-17] MEDS ORDERED: Potassium Bicarbonate/Cit Ac 20 MEQ TAB PO SCH (07:30)
[2022-11-17] MEDS ORDERED: Magnesium Sulfate 4 GM in Sodium Chloride 0.9% 250 ML 250 ML IVPB SCH (08:30)
[2022-11-17] MEDS ORDERED: Potassium Phosphate 30 MMOL in Sodium Chloride 0.9% 250 ML 250 ML IVPB SCH (09:00)
[2022-11-17] MEDS ORDERED: Magnesium Sulfate In Water 4 GM in Premix Bag 1 BAG IVPB SCH (10:00)
[2022-11-17] MEDS: NIFEdipine XL 60 MG TAB PO SCH ×2 (10:30→20:06)
[2022-11-17] MEDS: Carvedilol 25 MG TAB PO SCH ×2 (10:31→16:15)
[2022-11-17] MEDS: Sodium Bicarbonate Tab 325 MG TAB PO SCH ×3 (10:41→20:06)
[2022-11-17] MEDS ORDERED: Potassium Chloride 20 MEQ TAB PO SCH (13:00)
[2022-11-17] MEDS ORDERED: ZOLEDRONIC ACID IVPB SCH (16:15)
[2022-11-17] MEDS ORDERED: SODIUM CHLORIDE 0.9% IVPB SCH (16:15)
[2022-11-17] MEDS: Heparin 5,000 UNITS/ML VIAL SC SCH (20:07)
[2022-11-17] MEDS: Atorvastatin Calcium 40 MG TAB PO SCH (20:07)
[2022-11-18] MEDS: Sodium Chloride 0.9% 1,000 ML IV SCH ×4 (02:50→21:11)
[2022-11-18 05:14] LABS: #Eosinphils 0.2 thou/uL (0.0-0.7); #Lymphocytes 1.1 thou/uL (1.20-3.40); #Monocytes 0.7 thou/uL (0.11-0.59); #Neutrophils 4.1 thou/uL (1.40-6.50); %Basophils 0.5 % (0.0-1.0); %Eosinophils 2.6 % (0.0-10.0); %Lymphocytes 18.5 % (21.0-51.0); %Monocytes 11.6 % (0.0-10.0); %Neutrophils 66.9 % (42.0-75.0); Hemoglobin 10.9 g/dL (12.0-16.0); Mean Corpuscular HGB CONC 33.9 g/dL (32.0-36.0); Mean Corpuscular Hemoglobin 30.8 pg (27.0-31.0); Mean Corpuscular Volume 90.9 fl (78.0-98.0); Mean Platelet Volume 8.4 fL (7.4-10.4); Platelet Count 248 10x3/uL (130-400); RBC Distribution Width 12.4 % (11.5-14.5); Red Blood Cell (RBC) Count 3.53 mill/uL (4.20-5.40); White Blood Cell (WBC) Count 6.2 10x3/uL (4.8-10.8)
[2022-11-18 05:37] LABS: Anion Gap 10 mmol/L (10-20); BUN (Urea Nitrogen) 17 mg/dL (9.8-20.1); Calc. Creatinine Clearance 19 mL/min (70-130); Carbon Dioxide 19 mmol/L (23-31); Chloride 112 mmol/L (98-107); Estimated GFR 23; Glucose 137 mg/dL (83-110); Potassium 4.6 mmol/L (3.5-5.1); Sodium 136 mmol/L (136-145)
[2022-11-18] MEDS: NIFEdipine XL 60 MG TAB PO SCH ×2 (09:15→21:10)
[2022-11-18] MEDS: Heparin 5,000 UNITS/ML VIAL SC SCH ×2 (09:16→21:11)
[2022-11-18] MEDS: Carvedilol 25 MG TAB PO SCH ×2 (09:16→16:47)
[2022-11-18] MEDS: Sodium Bicarbonate Tab 325 MG TAB PO SCH ×3 (09:16→21:10)
[2022-11-18 16:14] LABS: Anion Gap 11 mmol/L (10-20); BUN (Urea Nitrogen) 16 mg/dL (9.8-20.1); Calc. Creatinine Clearance 23 mL/min (70-130); Calcium 10.5 mg/dL (7.8-10.44); Carbon Dioxide 17 mmol/L (23-31); Chloride 111 mmol/L (98-107); Estimated GFR 24; Glucose 110 mg/dL (83-110); Potassium 4.2 mmol/L (3.5-5.1); Sodium 135 mmol/L (136-145)
[2022-11-18] MEDS: Ondansetron PF 4 MG/2 ML Vial IVP PRN (16:47)
[2022-11-18] MEDS: Atorvastatin Calcium 40 MG TAB PO SCH (21:11)
[2022-11-18] MEDS: HYDROcodone/Acetaminophen 5/325 mg Tablet PO PRN (21:26)
[2022-11-19] MEDS: Sodium Chloride 0.9% 1,000 ML IV SCH (04:12)
[2022-11-19 05:23] LABS: #Basophils 0.1 thou/uL (0.0-0.2); #Eosinphils 0.1 thou/uL (0.0-0.7); #Lymphocytes 0.8 thou/uL (1.20-3.40); #Monocytes 1.1 thou/uL (0.11-0.59); #Neutrophils 9.7 thou/uL (1.40-6.50); %Basophils 0.8 % (0.0-1.0); %Eosinophils 0.6 % (0.0-10.0); %Lymphocytes 6.7 % (21.0-51.0); %Monocytes 9.5 % (0.0-10.0); %Neutrophils 82.5 % (42.0-75.0); Hemoglobin 11.1 g/dL (12.0-16.0); Mean Corpuscular Hemoglobin 30.6 pg (27.0-31.0); Mean Corpuscular Volume 92.7 fl (78.0-98.0); Mean Platelet Volume 8.1 fL (7.4-10.4); Platelet Count 244 10x3/uL (130-400); RBC Distribution Width 12.5 % (11.5-14.5); Red Blood Cell (RBC) Count 3.63 mill/uL (4.20-5.40); White Blood Cell (WBC) Count 11.8 10x3/uL (4.8-10.8)
[2022-11-19 06:30] LABS: Anion Gap 9 mmol/L (10-20); BUN (Urea Nitrogen) 16 mg/dL (9.8-20.1); Calc. Creatinine Clearance 23 mL/min (70-130); Carbon Dioxide 17 mmol/L (23-31); Chloride 111 mmol/L (98-107); Potassium 3.9 mmol/L (3.5-5.1); Sodium 133 mmol/L (136-145)
[2022-11-19 06:31] LABS: Albumin 2.8 g/dL (3.4-4.8); BUN/Creatinine Ratio 7.58; Calcium 9.1 mg/dL (7.8-10.44); Estimated GFR 24; Glucose 143 mg/dL (83-110); Magnesium 1.4 mg/dL (1.6-2.6); Phosphorus 2.2 mg/dL (2.3-4.7)
[2022-11-19] MEDS ORDERED: Magnesium 2 GM/50 ML(in water) 2 GM in Premix Bag 1 BAG IVPB SCH ×2 (09:00→15:00)
[2022-11-19] MEDS: Carvedilol 25 MG TAB PO SCH ×2 (10:16→16:41)
[2022-11-19] MEDS: Heparin 5,000 UNITS/ML VIAL SC SCH ×2 (10:16→20:56)
[2022-11-19] MEDS: NIFEdipine XL 60 MG TAB PO SCH ×2 (10:17→20:58)
[2022-11-19] MEDS: Sodium Bicarbonate Tab 325 MG TAB PO SCH ×3 (10:17→20:57)
[2022-11-19] MEDS: Sodium Bicarbonate 50 MEQ in Sodium Chloride 0.45% 1,000 ML IV SCH ×2 (10:55→20:55)
[2022-11-19] MEDS: Albumin 25% 25 GM/100 ML BOT IVPB SCH ×3 (12:23→23:39)
[2022-11-19] MEDS: Ondansetron PF 4 MG/2 ML Vial IVP PRN (15:31)
[2022-11-19] MEDS: HYDROcodone/Acetaminophen 5/325 mg Tablet PO PRN (16:40)
[2022-11-19] MEDS: Atorvastatin Calcium 40 MG TAB PO SCH (20:58)
[2022-11-20] MEDS: Sodium Bicarbonate 50 MEQ in Sodium Chloride 0.45% 1,000 ML IV SCH ×3 (04:34→21:42)
[2022-11-20 04:59] LABS: #Eosinphils 0.1 thou/uL (0.0-0.7); #Lymphocytes 1.1 thou/uL (1.20-3.40); #Monocytes 1.1 thou/uL (0.11-0.59); #Neutrophils 7.8 thou/uL (1.40-6.50); %Basophils 0.2 % (0.0-1.0); %Eosinophils 0.6 % (0.0-10.0); %Lymphocytes 11.2 % (21.0-51.0); Hemoglobin 9.5 g/dL (12.0-16.0); Mean Corpuscular HGB CONC 34.1 g/dL (32.0-36.0); Mean Corpuscular Hemoglobin 31.1 pg (27.0-31.0); Mean Corpuscular Volume 91.4 fl (78.0-98.0); Mean Platelet Volume 8.2 fL (7.4-10.4); Platelet Count 188 10x3/uL (130-400); RBC Distribution Width 12.4 % (11.5-14.5); Red Blood Cell (RBC) Count 3.05 mill/uL (4.20-5.40); White Blood Cell (WBC) Count 10.1 10x3/uL (4.8-10.8)
[2022-11-20 05:18] LABS: Albumin 3.5 g/dL (3.4-4.8); Anion Gap 12 mmol/L (10-20); BUN (Urea Nitrogen) 22 mg/dL (9.8-20.1); BUN/Creatinine Ratio 8.21; Calc. Creatinine Clearance 18 mL/min (70-130); Calcium 8.8 mg/dL (7.8-10.44); Carbon Dioxide 17 mmol/L (23-31); Chloride 104 mmol/L (98-107); Estimated GFR 18; Glucose 188 mg/dL (83-110); Potassium 3.6 mmol/L (3.5-5.1); Sodium 129 mmol/L (136-145)
[2022-11-20] MEDS ORDERED: Potassium Phosphate 30 MMOL in Sodium Chloride 0.9% 250 ML 250 ML IVPB SCH (06:30)
[2022-11-20] MEDS: Ondansetron PF 4 MG/2 ML Vial IVP PRN (07:28)
[2022-11-20] MEDS: Carvedilol 25 MG TAB PO SCH ×2 (09:39→18:08)
[2022-11-20] MEDS: NIFEdipine XL 60 MG TAB PO SCH (09:39)
[2022-11-20 11:25] LABS: #Eosinphils 0.1 thou/uL (0.0-0.7); #Lymphocytes 0.8 thou/uL (1.20-3.40); #Monocytes 1.1 thou/uL (0.11-0.59); #Neutrophils 7.8 thou/uL (1.40-6.50); %Basophils 0.1 % (0.0-1.0); %Eosinophils 1.1 % (0.0-10.0); %Lymphocytes 8.3 % (21.0-51.0); %Monocytes 11.5 % (0.0-10.0); Hemoglobin 9.7 g/dL (12.0-16.0); Mean Corpuscular Hemoglobin 30.2 pg (27.0-31.0); Mean Corpuscular Volume 91.5 fl (78.0-98.0); Mean Platelet Volume 8.3 fL (7.4-10.4); Platelet Count 209 10x3/uL (130-400); RBC Distribution Width 12.4 % (11.5-14.5); Red Blood Cell (RBC) Count 3.21 mill/uL (4.20-5.40); White Blood Cell (WBC) Count 9.9 10x3/uL (4.8-10.8)
[2022-11-20 11:38] LABS: INR-International Normal Ratio 1.1; PTT 32.5 sec (22.9-36.1); Prothrombin Time 14.9 sec (12.0-14.7)
[2022-11-20 11:47] LABS: ALT (SGPT) 12 U/L (8-55); AST (SGOT) 24 U/L (5-34); Albumin 3.6 g/dL (3.4-4.8); Alkaline Phosphatase 52 U/L (40-110); Anion Gap 14 mmol/L (10-20); BUN (Urea Nitrogen) 24 mg/dL (9.8-20.1); Bilirubin, Total 1.5 mg/dL (0.2-1.2); CK (CPK) 204 U/L (29-168); Calc. Creatinine Clearance 17 mL/min (70-130); Calcium 8.9 mg/dL (7.8-10.44); Carbon Dioxide 18 mmol/L (23-31); Chloride 103 mmol/L (98-107); Estimated GFR 17; Globulin 1.8 g/dL (2.4-3.5); Glucose 171 mg/dL (83-110); Protein, Total 5.4 g/dL (5.8-8.1); Sodium 131 mmol/L (136-145)
[2022-11-20 12:20] LABS: CKMB 5.5 ng/mL (0-6.6)
[2022-11-20] MEDS ORDERED: Aspirin 325 MG TAB PO SCH (12:45)
[2022-11-20] MEDS: HYDROcodone/Acetaminophen 5/325 mg Tablet PO PRN (12:49)
[2022-11-20] MEDS: Heparin 5,000 UNITS/ML VIAL SC SCH ×2 (14:57→21:40)
[2022-11-20] MEDS: Sodium Bicarbonate Tab 325 MG TAB PO SCH ×3 (14:58→21:41)
[2022-11-20] MEDS ORDERED: Lorazepam 2 MG/ML VIAL SLOW IVP SCH (16:15)
[2022-11-20 16:29] VITALS: BMI 21.5
[2022-11-20 18:32] LABS: Critical Call Chem Troponin I RESULT DECREASING; Troponin I 3.112 ng/mL (< 0.028)
[2022-11-20 21:18] LABS: Anion Gap 13 mmol/L (10-20); BUN (Urea Nitrogen) 24 mg/dL (9.8-20.1); Calc. Creatinine Clearance 17 mL/min (70-130); Calcium 8.1 mg/dL (7.8-10.44); Carbon Dioxide 15 mmol/L (23-31); Chloride 105 mmol/L (98-107); Estimated GFR 17; Glucose 120 mg/dL (83-110); Potassium 4.1 mmol/L (3.5-5.1); Sodium 129 mmol/L (136-145)
[2022-11-20] MEDS: Atorvastatin Calcium 40 MG TAB PO SCH (21:40)
[2022-11-21] MEDS: HYDROcodone/Acetaminophen 5/325 mg Tablet PO PRN ×3 (04:12→20:17)
[2022-11-21] MEDS: Ondansetron PF 4 MG/2 ML Vial IVP PRN (04:14)
[2022-11-21 05:47] LABS: #Eosinphils 0.2 thou/uL (0.0-0.7); #Lymphocytes 0.7 thou/uL (1.20-3.40); #Monocytes 1.1 thou/uL (0.11-0.59); #Neutrophils 8.7 thou/uL (1.40-6.50); %Basophils 0.2 % (0.0-1.0); %Eosinophils 1.9 % (0.0-10.0); %Lymphocytes 6.3 % (21.0-51.0); %Monocytes 10.4 % (0.0-10.0); %Neutrophils 81.2 % (42.0-75.0); Hemoglobin 9.2 g/dL (12.0-16.0); Mean Corpuscular Hemoglobin 30.5 pg (27.0-31.0); Mean Corpuscular Volume 95.5 fl (78.0-98.0); Mean Platelet Volume 8.8 fL (7.4-10.4); Platelet Count 204 10x3/uL (130-400); RBC Distribution Width 12.7 % (11.5-14.5); Red Blood Cell (RBC) Count 3.02 mill/uL (4.20-5.40); White Blood Cell (WBC) Count 10.7 10x3/uL (4.8-10.8)
[2022-11-21 06:12] LABS: Albumin 3.1 g/dL (3.4-4.8); Anion Gap 14 mmol/L (10-20); BUN (Urea Nitrogen) 26 mg/dL (9.8-20.1); Calc. Creatinine Clearance 17 mL/min (70-130); Carbon Dioxide 17 mmol/L (23-31); Chloride 102 mmol/L (98-107); Estimated GFR 17; Glucose 111 mg/dL (83-110); Phosphorus 2.9 mg/dL (2.3-4.7); Potassium 3.7 mmol/L (3.5-5.1); Sodium 129 mmol/L (136-145)
[2022-11-21 07:00] LABS: Bilirubin Negative (Negative); Blood, Urine 1+ (Negative); CAUTI Indications for Culture Fever or rigors; Clarity Extra Turbid (Clear); Glucose, Urine (Dipstick) Normal (Negative); Ketone, Urine Negative (Negative); Leukocyte 250 Leu/uL (Negative); Nitrite Negative (Negative); Protein, Urine (Dipstick) 30 mg/dL (Neg-Trace); Specific Gravity, Urine 1.004 (1.002-1.036); Squamous Epithelial 0-3 HPF (0-3); Urobilinogen Normal mg/dL (Less than 2); pH, Urine 5.5 (5.0-9.0)
[2022-11-21 07:04] LABS: Bacteria/HPF 3+ HPF (None Seen)
[2022-11-21 07:05] LABS: RBC/HPF 0-3 HPF (0-3)
[2022-11-21 07:07] LABS: Urine Culture Reflex No No
[2022-11-21 07:39] LABS: Magnesium 1.8 mg/dL (1.6-2.6)
[2022-11-21 07:44] LABS: Troponin I 3.228 ng/mL (< 0.028)
[2022-11-21 08:26] LABS: #Eosinphils 0.2 thou/uL (0.0-0.7); #Lymphocytes 0.9 thou/uL (1.20-3.40); %Basophils 0.1 % (0.0-1.0); %Eosinophils 1.8 % (0.0-10.0); %Lymphocytes 8.4 % (21.0-51.0); %Monocytes 10.2 % (0.0-10.0); %Neutrophils 79.5 % (42.0-75.0); Mean Corpuscular HGB CONC 32.7 g/dL (32.0-36.0); Mean Corpuscular Hemoglobin 30.1 pg (27.0-31.0); Mean Corpuscular Volume 92.1 fl (78.0-98.0); Mean Platelet Volume 8.9 fL (7.4-10.4); Platelet Count 197 10x3/uL (130-400); RBC Distribution Width 12.5 % (11.5-14.5); Red Blood Cell (RBC) Count 2.98 mill/uL (4.20-5.40); White Blood Cell (WBC) Count 10.1 10x3/uL (4.8-10.8)
[2022-11-21] MEDS: Sodium Bicarbonate 50 MEQ in Sodium Chloride 0.45% 1,000 ML IV SCH (08:29)
[2022-11-21] MEDS: Sodium Bicarbonate Tab 325 MG TAB PO SCH ×3 (08:30→20:16)
[2022-11-21 08:42] LABS: Anion Gap 13 mmol/L (10-20); BUN (Urea Nitrogen) 27 mg/dL (9.8-20.1); Calc. Creatinine Clearance 17 mL/min (70-130); Calcium 8.1 mg/dL (7.8-10.44); Carbon Dioxide 18 mmol/L (23-31); Chloride 103 mmol/L (98-107); Estimated GFR 17; Glucose 103 mg/dL (83-110); Potassium 3.7 mmol/L (3.5-5.1); Sodium 130 mmol/L (136-145)
[2022-11-21 08:43] LABS: Lactic Acid 0.7 mmol/L (0.5-2.2)
[2022-11-21] MEDS: Heparin 5,000 UNITS/ML VIAL SC SCH ×2 (08:45→20:16)
[2022-11-21] MEDS ORDERED: NIFEdipine XL 60 MG TAB PO SCH (09:00)
[2022-11-21] MEDS ORDERED: Aspirin 81 mg Enteric Coated Tablet PO SCH (09:00)
[2022-11-21 11:20] LABS: ALT (SGPT) 11 U/L (8-55); AST (SGOT) 19 U/L (5-34); Albumin 3.1 g/dL (3.4-4.8); Alkaline Phosphatase 53 U/L (40-110); Bilirubin, Direct 0.5 mg/dL (0.1-0.3); Bilirubin, Total 1.2 mg/dL (0.2-1.2); Protein, Total 5.1 g/dL (5.8-8.1)
[2022-11-21] MEDS: Sodium Bicarbonate 150 MEQ in Dextrose 5% in Water 1,000 ML IV SCH (11:58)
[2022-11-21] MEDS: Nystatin 500,000 UNITS/5 ML UDCUP SSW SCH ×3 (15:13→20:16)
[2022-11-21] MEDS ORDERED: Carvedilol 6.25 MG TAB PO SCH (17:00)
[2022-11-21] MEDS: Atorvastatin Calcium 40 MG TAB PO SCH (20:15)
[2022-11-21] MEDS ORDERED: Dicyclomine 10 MG/5 ML ORAL SOLN PO SCH (21:00)
[2022-11-22] MEDS: Sodium Bicarbonate 150 MEQ in Dextrose 5% in Water 1,000 ML IV SCH (00:51)
[2022-11-22 05:25] LABS: #Eosinphils 0.2 thou/uL (0.0-0.7); #Lymphocytes 0.6 thou/uL (1.20-3.40); #Monocytes 1.1 thou/uL (0.11-0.59); #Neutrophils 6.5 thou/uL (1.40-6.50); %Basophils 0.2 % (0.0-1.0); %Eosinophils 2.6 % (0.0-10.0); %Lymphocytes 7.6 % (21.0-51.0); %Monocytes 13.1 % (0.0-10.0); %Neutrophils 76.5 % (42.0-75.0); Hemoglobin 9.4 g/dL (12.0-16.0); Mean Corpuscular HGB CONC 33.2 g/dL (32.0-36.0); Mean Corpuscular Hemoglobin 30.7 pg (27.0-31.0); Mean Corpuscular Volume 92.4 fl (78.0-98.0); Mean Platelet Volume 9.1 fL (7.4-10.4); Platelet Count 230 10x3/uL (130-400); RBC Distribution Width 12.6 % (11.5-14.5); Red Blood Cell (RBC) Count 3.07 mill/uL (4.20-5.40); White Blood Cell (WBC) Count 8.5 10x3/uL (4.8-10.8)
[2022-11-22] MEDS: HumaLOG 300 UNITS/3 ML VIAL SC PRN ×2 (05:35→13:22)
[2022-11-22 05:41] LABS: Albumin 2.7 g/dL (3.4-4.8); Anion Gap 11 mmol/L (10-20); BUN (Urea Nitrogen) 24 mg/dL (9.8-20.1); BUN/Creatinine Ratio 7.57; Calc. Creatinine Clearance 15 mL/min (70-130); Carbon Dioxide 24 mmol/L (23-31); Chloride 98 mmol/L (98-107); Estimated GFR 15; Glucose 246 mg/dL (83-110); Phosphorus 2.5 mg/dL (2.3-4.7); Potassium 3.4 mmol/L (3.5-5.1); Sodium 130 mmol/L (136-145)
[2022-11-22] MEDS ORDERED: Lactated Ringer's 1,000 ML IV SCH (06:45)
[2022-11-22] MEDS: Albumin 25% 25 GM/100 ML BOT IVPB SCH ×3 (07:33→16:27)
[2022-11-22] MEDS ORDERED: Acetaminophen 325 MG TAB PER TUBE PRN (08:00)
[2022-11-22] MEDS: Sodium Bicarbonate Tab 325 MG TAB PER TUBE SCH ×3 (09:00→21:52)
[2022-11-22] MEDS: Nystatin 500,000 UNITS/5 ML UDCUP SSW SCH ×4 (09:00→21:52)
[2022-11-22] MEDS: Carvedilol 6.25 MG TAB PER TUBE SCH ×2 (09:00→16:16)
[2022-11-22] MEDS: Aspirin Chewable 81 MG TAB PER TUBE SCH (09:00)
[2022-11-22] MEDS: Dicyclomine 10 MG/5 ML ORAL SOLN PER TUBE SCH ×4 (09:01→22:01)
[2022-11-22] MEDS: Lansoprazole 15 MG/5 ML (BATCHED)UDCUP PER TUBE SCH (09:01)
[2022-11-22] MEDS: Heparin 5,000 UNITS/ML VIAL SC SCH ×2 (09:01→21:52)
[2022-11-22] MEDS: Ondansetron PF 4 MG/2 ML Vial IVP PRN (16:15)
[2022-11-22] MEDS: HYDROcodone/Acetaminophen 5/325 mg Tablet PER TUBE PRN (16:15)
[2022-11-22] MEDS: Atorvastatin Calcium 40 MG TAB PER TUBE SCH (21:52)
[2022-11-23] MEDS: HYDROcodone/Acetaminophen 5/325 mg Tablet PER TUBE PRN ×3 (00:44→15:58)
[2022-11-23] MEDS: Albumin 25% 25 GM/100 ML BOT IVPB SCH (00:44)
[2022-11-23 05:33] LABS: #Eosinphils 0.1 thou/uL (0.0-0.7); #Lymphocytes 0.7 thou/uL (1.20-3.40); #Neutrophils 5.9 thou/uL (1.40-6.50); %Basophils 0.3 % (0.0-1.0); %Eosinophils 1.3 % (0.0-10.0); %Lymphocytes 8.7 % (21.0-51.0); %Monocytes 12.9 % (0.0-10.0); %Neutrophils 76.8 % (42.0-75.0); Hemoglobin 8.4 g/dL (12.0-16.0); Mean Corpuscular HGB CONC 32.4 g/dL (32.0-36.0); Mean Corpuscular Hemoglobin 30.2 pg (27.0-31.0); Mean Corpuscular Volume 93.1 fl (78.0-98.0); Mean Platelet Volume 8.9 fL (7.4-10.4); Platelet Count 245 10x3/uL (130-400); RBC Distribution Width 12.7 % (11.5-14.5); White Blood Cell (WBC) Count 7.7 10x3/uL (4.8-10.8)
[2022-11-23] MEDS: HumaLOG 300 UNITS/3 ML VIAL SC PRN (05:34)
[2022-11-23 05:55] LABS: Albumin 3.9 g/dL (3.4-4.8); Anion Gap 11 mmol/L (10-20); BUN (Urea Nitrogen) 26 mg/dL (9.8-20.1); BUN/Creatinine Ratio 7.12; Calc. Creatinine Clearance 13 mL/min (70-130); Calcium 8.8 mg/dL (7.8-10.44); Carbon Dioxide 26 mmol/L (23-31); Chloride 97 mmol/L (98-107); Estimated GFR 13; Glucose 311 mg/dL (83-110); Phosphorus 2.7 mg/dL (2.3-4.7); Potassium 3.6 mmol/L (3.5-5.1); Sodium 130 mmol/L (136-145)
[2022-11-23] MEDS ORDERED: HumaLOG 300 UNITS/3 ML VIAL SC PRN (07:27)
[2022-11-23] MEDS: Nystatin 500,000 UNITS/5 ML UDCUP SSW SCH ×4 (10:05→21:13)
[2022-11-23] MEDS: Lansoprazole 15 MG/5 ML (BATCHED)UDCUP PER TUBE SCH (10:06)
[2022-11-23] MEDS: Dicyclomine 10 MG/5 ML ORAL SOLN PER TUBE SCH ×4 (10:07→21:14)
[2022-11-23] MEDS: Sodium Bicarbonate Tab 325 MG TAB PER TUBE SCH ×3 (10:07→21:13)
[2022-11-23] MEDS: Carvedilol 6.25 MG TAB PER TUBE SCH ×2 (10:07→18:08)
[2022-11-23] MEDS: Aspirin Chewable 81 MG TAB PER TUBE SCH (10:07)
[2022-11-23] MEDS: Heparin 5,000 UNITS/ML VIAL SC SCH ×2 (10:36→21:14)
[2022-11-23 11:33] LABS: Creatinine, Urine 75.01 mg/dL (47-110)
[2022-11-23] MEDS: Atorvastatin Calcium 40 MG TAB PER TUBE SCH (21:14)
[2022-11-24 05:07] LABS: #Eosinphils 0.3 thou/uL (0.0-0.7); #Neutrophils 6.8 thou/uL (1.40-6.50); %Basophils 0.2 % (0.0-1.0); %Eosinophils 2.8 % (0.0-10.0); %Lymphocytes 11.3 % (21.0-51.0); %Monocytes 10.9 % (0.0-10.0); %Neutrophils 74.8 % (42.0-75.0); Mean Corpuscular HGB CONC 31.9 g/dL (32.0-36.0); Mean Corpuscular Hemoglobin 30.1 pg (27.0-31.0); Mean Corpuscular Volume 94.3 fl (78.0-98.0); Mean Platelet Volume 8.9 fL (7.4-10.4); Platelet Count 267 10x3/uL (130-400); RBC Distribution Width 12.9 % (11.5-14.5); Red Blood Cell (RBC) Count 2.98 mill/uL (4.20-5.40); White Blood Cell (WBC) Count 9.1 10x3/uL (4.8-10.8)
[2022-11-24] MEDS: HYDROcodone/Acetaminophen 5/325 mg Tablet PER TUBE PRN ×2 (05:50→11:31)
[2022-11-24 09:14] LABS: Albumin 3.6 g/dL (3.4-4.8); Anion Gap 14 mmol/L (10-20); BUN (Urea Nitrogen) 27 mg/dL (9.8-20.1); BUN/Creatinine Ratio 6.72; Calc. Creatinine Clearance 12 mL/min (70-130); Calcium 8.5 mg/dL (7.8-10.44); Carbon Dioxide 24 mmol/L (23-31); Chloride 98 mmol/L (98-107); Estimated GFR 11; Glucose 189 mg/dL (83-110); Phosphorus 2.4 mg/dL (2.3-4.7); Potassium 3.8 mmol/L (3.5-5.1); Sodium 132 mmol/L (136-145)
[2022-11-24] MEDS: Dicyclomine 10 MG/5 ML ORAL SOLN PER TUBE SCH ×4 (12:53→21:47)
[2022-11-24] MEDS: Carvedilol 6.25 MG TAB PER TUBE SCH ×2 (12:54→18:03)
[2022-11-24] MEDS: Heparin 5,000 UNITS/ML VIAL SC SCH ×2 (12:54→21:47)
[2022-11-24] MEDS: Nystatin 500,000 UNITS/5 ML UDCUP SSW SCH ×4 (12:55→21:48)
[2022-11-24] MEDS: Sodium Bicarbonate Tab 325 MG TAB PER TUBE SCH ×3 (12:56→21:48)
[2022-11-24] MEDS: Lansoprazole 15 MG/5 ML (BATCHED)UDCUP PER TUBE SCH (13:56)
[2022-11-24] MEDS: Aspirin Chewable 81 MG TAB PER TUBE SCH (13:57)
[2022-11-24] MEDS: Atorvastatin Calcium 40 MG TAB PER TUBE SCH (21:47)
[2022-11-25 05:53] LABS: #Basophils 0.1 thou/uL (0.0-0.2); #Eosinphils 0.1 thou/uL (0.0-0.7); #Lymphocytes 1.3 thou/uL (1.20-3.40); #Monocytes 1.1 thou/uL (0.11-0.59); %Basophils 0.5 % (0.0-1.0); %Eosinophils 1.2 % (0.0-10.0); %Lymphocytes 11.1 % (21.0-51.0); %Monocytes 9.7 % (0.0-10.0); %Neutrophils 77.5 % (42.0-75.0); Hemoglobin 9.7 g/dL (12.0-16.0); Mean Corpuscular HGB CONC 32.5 g/dL (32.0-36.0); Mean Corpuscular Volume 92.4 fl (78.0-98.0); Mean Platelet Volume 9.6 fL (7.4-10.4); Platelet Count 296 10x3/uL (130-400); RBC Distribution Width 12.8 % (11.5-14.5); Red Blood Cell (RBC) Count 3.21 mill/uL (4.20-5.40); White Blood Cell (WBC) Count 11.6 10x3/uL (4.8-10.8)
[2022-11-25 06:22] LABS: Albumin 3.6 g/dL (3.4-4.8); Anion Gap 15 mmol/L (10-20); BUN (Urea Nitrogen) 31 mg/dL (9.8-20.1); Calc. Creatinine Clearance 11 mL/min (70-130); Calcium 8.9 mg/dL (7.8-10.44); Carbon Dioxide 25 mmol/L (23-31); Chloride 95 mmol/L (98-107); Estimated GFR 10; Glucose 170 mg/dL (83-110); Phosphorus 2.3 mg/dL (2.3-4.7); Potassium 3.9 mmol/L (3.5-5.1); Sodium 131 mmol/L (136-145)
[2022-11-25] MEDS: HYDROcodone/Acetaminophen 5/325 mg Tablet PER TUBE PRN ×3 (07:37→20:19)
[2022-11-25] MEDS: Nystatin 500,000 UNITS/5 ML UDCUP SSW SCH (07:39)
[2022-11-25] MEDS: Lansoprazole 15 MG/5 ML (BATCHED)UDCUP PER TUBE SCH (07:39)
[2022-11-25] MEDS: Aspirin Chewable 81 MG TAB PER TUBE SCH (07:40)
[2022-11-25] MEDS: Carvedilol 6.25 MG TAB PER TUBE SCH ×2 (07:40→20:20)
[2022-11-25] MEDS: Heparin 5,000 UNITS/ML VIAL SC SCH ×2 (07:40→20:22)
[2022-11-25] MEDS: Sodium Bicarbonate Tab 325 MG TAB PER TUBE SCH ×2 (07:40→20:19)
[2022-11-25] MEDS: Dicyclomine 10 MG/5 ML ORAL SOLN PER TUBE SCH (07:41)
[2022-11-25] MEDS ORDERED: Metoclopramide 10 MG/10 ML UDCUP PO SCH (10:00)
[2022-11-25 15:42] LABS: Bacteria/HPF 4+ HPF (None Seen); Bilirubin Negative (Negative); Blood, Urine 1+ (Negative); Clarity Turbid (Clear); Glucose, Urine (Dipstick) >=1000 mg/dL (Negative); Ketone, Urine Trace mg/dL (Negative); Leukocyte 500 Leu/uL (Negative); Nitrite Negative (Negative); Protein, Urine (Dipstick) 200 mg/dL (Neg-Trace); Specific Gravity, Urine 1.008 (1.002-1.036); Urobilinogen Normal mg/dL (Less than 2); WBC/HPF Greater than 50 HPF (0-3); pH, Urine 7.5 (5.0-9.0)
[2022-11-25 16:12] LABS: Creatinine, Urine 40.94 mg/dL (47-110)
[2022-11-25] MEDS: Atorvastatin Calcium 40 MG TAB PER TUBE SCH (20:20)
[2022-11-26 08:51] LABS: Hemoglobin 10.4 g/dL (12.0-16.0); Mean Corpuscular Hemoglobin 29.2 pg (27.0-31.0); Mean Corpuscular Volume 97.5 fl (78.0-98.0); Mean Platelet Volume 8.4 fL (7.4-10.4); Platelet Count 323 10x3/uL (130-400); RBC Distribution Width 13.1 % (11.5-14.5); Red Blood Cell (RBC) Count 3.55 mill/uL (4.20-5.40); White Blood Cell (WBC) Count 11.5 10x3/uL (4.8-10.8)
[2022-11-26] MEDS: HYDROcodone/Acetaminophen 5/325 mg Tablet PER TUBE PRN ×2 (08:57→17:24)
[2022-11-26] MEDS: Sodium Bicarbonate Tab 325 MG TAB PER TUBE SCH ×2 (08:58→22:12)
[2022-11-26] MEDS: Aspirin Chewable 81 MG TAB PER TUBE SCH (08:58)
[2022-11-26] MEDS: Heparin 5,000 UNITS/ML VIAL SC SCH ×2 (08:59→22:16)
[2022-11-26] MEDS: Carvedilol 6.25 MG TAB PER TUBE SCH ×2 (09:03→17:23)
[2022-11-26] MEDS: Lansoprazole 15 MG/5 ML (BATCHED)UDCUP PER TUBE SCH (09:05)
[2022-11-26 09:31] LABS: Eosinophils 3 % (0-10); Hypochromia SLIGHT = 6-15 cells (100X) (0-5/hpf); Lymphocytes 10 % (21-51); MDiff Complete? YES; Monocytes 7 % (0-10); Neutrophil 78 % (42-75); Platelet Morphology Comment Appears Adequate; Polychromasia SLIGHT = 2-3 cells (100X) (0-2/hpf); Reactive Lymphocytes 1 % (0-10)
[2022-11-26 10:45] LABS: Albumin 3.6 g/dL (3.4-4.8); Anion Gap 15 mmol/L (10-20); BUN (Urea Nitrogen) 33 mg/dL (9.8-20.1); BUN/Creatinine Ratio 6.89; Calc. Creatinine Clearance 10 mL/min (70-130); Carbon Dioxide 25 mmol/L (23-31); Chloride 93 mmol/L (98-107); Estimated GFR 9; Glucose 247 mg/dL (83-110); Phosphorus 2.2 mg/dL (2.3-4.7); Potassium 3.6 mmol/L (3.5-5.1); Sodium 129 mmol/L (136-145)
[2022-11-26] MEDS ORDERED: EPOETIN ALFA-EPBX (ESRD) 10,000 UNIT/ML VIAL SC SCH (17:00)
[2022-11-26] MEDS: Atorvastatin Calcium 40 MG TAB PER TUBE SCH (22:13)
[2022-11-27 04:43] LABS: Albumin 3.6 g/dL (3.4-4.8); Anion Gap 14 mmol/L (10-20); BUN (Urea Nitrogen) 33 mg/dL (9.8-20.1); BUN/Creatinine Ratio 6.47; Calc. Creatinine Clearance 10 mL/min (70-130); Calcium 8.8 mg/dL (7.8-10.44); Carbon Dioxide 26 mmol/L (23-31); Chloride 94 mmol/L (98-107); Estimated GFR 8; Glucose 263 mg/dL (83-110); Phosphorus 2.6 mg/dL (2.3-4.7); Potassium 3.5 mmol/L (3.5-5.1); Sodium 130 mmol/L (136-145)
[2022-11-27] MEDS: HYDROcodone/Acetaminophen 5/325 mg Tablet PER TUBE PRN (07:22)
[2022-11-27 07:41] VITALS: BP 140/71; TEMP 97.2
[2022-11-27] MEDS: Lansoprazole 15 MG/5 ML (BATCHED)UDCUP PER TUBE SCH (09:30)
[2022-11-27] MEDS: Carvedilol 6.25 MG TAB PER TUBE SCH (09:30)
[2022-11-27] MEDS: Heparin 5,000 UNITS/ML VIAL SC SCH (09:31)
[2022-11-27] MEDS: Aspirin Chewable 81 MG TAB PER TUBE SCH (09:31)
[2022-11-27] MEDS: Sodium Bicarbonate Tab 325 MG TAB PER TUBE SCH (11:16)
== END 2022-11-27 12:00 | disposition home or self-care (01) | DRG 640 ==
LOC: ERS 22:30 → ERHOLD 11-15 02:34 → CCU 11-15 04:29 → 2SW 11-15 18:06 → 2NO 11-22 20:01
PROVIDERS: ADMIT Hospitalist; ATTEND Hospitalist
PROC: 0DH67UZ Insertion of Feeding Device into Stomach, Via Natural or Artificial Opening (ICD-10-PCS; principal; 2022-11-21)
DX: E83.52 Hypercalcemia (principal); I21.4 Non-ST elevation (NSTEMI) myocardial infarction; J96.01 Acute respiratory failure with hypoxia; N17.0 Acute kidney failure with tubular necrosis; E87.20 Acidosis, unspecified; B37.0 Candidal stomatitis; N18.4 Chronic kidney disease, stage 4 (severe); C34.92 Malignant neoplasm of unspecified part of left bronchus or lung; K52.9 Noninfective gastroenteritis and colitis, unspecified; Z20.822 Contact with and (suspected) exposure to COVID-19; I25.10 Atherosclerotic heart disease of native coronary artery without angina pectoris; D63.1 Anemia in chronic kidney disease; E11.22 Type 2 diabetes mellitus with diabetic chronic kidney disease; E86.0 Dehydration; I12.9 Hypertensive chronic kidney disease with stage 1 through stage 4 chronic kidney disease, or unspecified chronic kidney disease; E11.65 Type 2 diabetes mellitus with hyperglycemia; E87.6 Hypokalemia; E83.42 Hypomagnesemia; E83.39 Other disorders of phosphorus metabolism; R13.12 Dysphagia, oropharyngeal phase; R33.9 Retention of urine, unspecified; R29.810 Facial weakness; Z28.21 Immunization not carried out because of patient refusal; Z88.0 Allergy status to penicillin; Z79.899 Other long term (current) drug therapy; Z79.84 Long term (current) use of oral hypoglycemic drugs; Z95.1 Presence of aortocoronary bypass graft; Z98.890 Other specified postprocedural states; Z80.9 Family history of malignant neoplasm, unspecified; Z87.440 Personal history of urinary (tract) infections; Z87.01 Personal history of pneumonia (recurrent)
CPT/HCPCS: 36415; 36416; 70450; 70551; 71045; 71046; 71250; 74018; 74176; 74230; 80048; 80053; 80069; 81001; 81003; 82164; 82306; 82550; 82553; 82570; 83605; 83690; 83735; 83880; 83970; 84100; 84156; 84300; 84443; 84484; 84540; 85025; 85610; 85730; 87040; 87811; 89190; 93005; 93010; 93880; 96361; 96372; 96374; J0360; J0630; J1644; J1815; J2060; J2405; J3475; J3489; J3490; J7050; J7070; J7120; P9047; Q5105

== ENCOUNTER 2022-12-04 08:00 | Outpatient (CLI) | payer MEDICARE | END 2022-12-04 08:01 | disposition home or self-care (01) | LOC: PET 08:00 | PROVIDERS: ATTEND Internal Medicine Critical Care Medicine | DX: R91.8 Other nonspecific abnormal finding of lung field (principal); E87.70 Fluid overload, unspecified; J90 Pleural effusion, not elsewhere classified | CPT/HCPCS: 78815; A9552 ==

== ENCOUNTER 2022-12-07 05:11 | Emergency (ER) | payer MEDICARE ==
[2022-12-07] MEDS ORDERED: Morphine 4 MG/ML VIAL ONE (06:01)
[2022-12-07] MEDS ORDERED: Ondansetron PF 4 MG/2 ML Vial ONE (06:01)
[2022-12-07 06:14] LABS: #Eosinphils 0.2 thou/uL (0.0-0.7); #Lymphocytes 1.2 thou/uL (1.20-3.40); #Monocytes 0.9 thou/uL (0.11-0.59); #Neutrophils 6.8 thou/uL (1.40-6.50); %Basophils 0.5 % (0.0-1.0); %Eosinophils 2.1 % (0.0-10.0); %Lymphocytes 12.6 % (21.0-51.0); %Monocytes 10.1 % (0.0-10.0); %Neutrophils 74.7 % (42.0-75.0); Hemoglobin 9.5 g/dL (12.0-16.0); Mean Corpuscular HGB CONC 31.6 g/dL (32.0-36.0); Mean Corpuscular Hemoglobin 29.6 pg (27.0-31.0); Mean Corpuscular Volume 93.7 fl (78.0-98.0); Mean Platelet Volume 7.1 fL (7.4-10.4); Platelet Count 400 10x3/uL (130-400); Red Blood Cell (RBC) Count 3.21 mill/uL (4.20-5.40); White Blood Cell (WBC) Count 9.2 10x3/uL (4.8-10.8)
[2022-12-07 06:35] LABS: ALT (SGPT) Less than 7 U/L (8-55); AST (SGOT) 13 U/L (5-34); Albumin 3.7 g/dL (3.4-4.8); Alkaline Phosphatase 63 U/L (40-110); Anion Gap 13 mmol/L (10-20); BUN (Urea Nitrogen) 17 mg/dL (9.8-20.1); Bilirubin, Total 1.6 mg/dL (0.2-1.2); Calc. Creatinine Clearance 0 mL/min (70-130); Calcium 8.6 mg/dL (7.8-10.44); Carbon Dioxide 19 mmol/L (23-31); Chloride 103 mmol/L (98-107); Estimated GFR 14; Globulin 2.6 g/dL (2.4-3.5); Glucose 70 mg/dL (83-110); Lipase 13 U/L (8-78); Potassium 2.9 mmol/L (3.5-5.1); Protein, Total 6.3 g/dL (5.8-8.1); Sodium 132 mmol/L (136-145)
[2022-12-07] MEDS ORDERED: Potassium Chloride 20 MEQ TAB ONE (06:55)
[2022-12-07 08:32] LABS: Bacteria/HPF 2+ HPF (None Seen); Bilirubin Negative (Negative); Blood, Urine 1+ (Negative); Clarity Extra Turbid (Clear); Glucose, Urine (Dipstick) Normal (Negative); Ketone, Urine Trace mg/dL (Negative); Leukocyte 500 Leu/uL (Negative); Nitrite Negative (Negative); Protein, Urine (Dipstick) 50 mg/dL (Neg-Trace); RBC/HPF 21-50 HPF (0-3); Specific Gravity, Urine 1.009 (1.002-1.036); Urobilinogen Normal mg/dL (Less than 2); WBC/HPF Greater than 50 HPF (0-3); pH, Urine 6.5 (5.0-9.0)
== END 2022-12-07 09:24 | disposition home or self-care (01) ==
LOC: ERS 05:11
DX: N39.0 Urinary tract infection, site not specified (principal); E78.5 Hyperlipidemia, unspecified; E11.9 Type 2 diabetes mellitus without complications; I10 Essential (primary) hypertension
CPT/HCPCS: 36415; 74176; 80053; 81003; 81015; 83690; 85025; 87077; 87086; 87186; 96374; 96375; J2270; J2405

== ENCOUNTER 2022-12-25 08:01 | Day surgery (SDC) | payer MEDICARE ==
[2022-12-25 08:33] LABS: #Eosinphils 0.2 thou/uL (0.0-0.7); #Lymphocytes 1.8 thou/uL (1.20-3.40); #Neutrophils 5.6 thou/uL (1.40-6.50); %Basophils 0.5 % (0.0-1.0); %Eosinophils 1.9 % (0.0-10.0); %Lymphocytes 20.5 % (21.0-51.0); %Monocytes 11.3 % (0.0-10.0); %Neutrophils 65.9 % (42.0-75.0); Hemoglobin 11.7 g/dL (12.0-16.0); Mean Corpuscular HGB CONC 32.3 g/dL (32.0-36.0); Mean Corpuscular Hemoglobin 29.9 pg (27.0-31.0); Mean Corpuscular Volume 92.6 fl (78.0-98.0); Mean Platelet Volume 8.2 fL (7.4-10.4); Platelet Count 391 10x3/uL (130-400); Red Blood Cell (RBC) Count 3.92 mill/uL (4.20-5.40); White Blood Cell (WBC) Count 8.5 10x3/uL (4.8-10.8)
[2022-12-25 08:45] LABS: PTT 25.7 sec (22.9-36.1); Prothrombin Time 13.8 sec (12.0-14.7)
[2022-12-25] MEDS ORDERED: Sodium Bicarbonate 2.5 MEQ/5 ML VIAL ONE (09:38)
[2022-12-25] MEDS ORDERED: Lidocaine 1% PF 5 ML VIAL ONE (10:44)
[2022-12-25 13:19] VITALS: BP 176/81; TEMP 97.6; BMI 21.7
[2022-12-25] MEDS ORDERED: FLU VACC QS2022-23(65YR UP)/PF 240 MCG/0.7 ML SYRINGE IM ONE (15:00)
== END 2022-12-25 13:15 | disposition home or self-care (01) ==
LOC: CT 08:01
PROVIDERS: ATTEND Internal Medicine
PROC: 0KBJ3ZX Excision of Left Thorax Muscle, Percutaneous Approach, Diagnostic (ICD-10-PCS; principal; 2022-12-25)
DX: M79.89 Other specified soft tissue disorders (principal); I12.9 Hypertensive chronic kidney disease with stage 1 through stage 4 chronic kidney disease, or unspecified chronic kidney disease; E11.22 Type 2 diabetes mellitus with diabetic chronic kidney disease; N18.9 Chronic kidney disease, unspecified; D63.1 Anemia in chronic kidney disease; I25.10 Atherosclerotic heart disease of native coronary artery without angina pectoris; Z79.84 Long term (current) use of oral hypoglycemic drugs; Z79.899 Other long term (current) drug therapy; Z88.0 Allergy status to penicillin
CPT/HCPCS: 10005; 85025; 85610; 85730; 88305; 88312; 88333; 88342

== ENCOUNTER 2023-01-14 22:39 | Inpatient (IN) | payer MEDICARE ==
[2023-01-15] LABS: Hemoglobin 11.9 g/dL (12.0-16.0); Mean Corpuscular HGB CONC 32.6 g/dL (32.0-36.0); Mean Corpuscular Hemoglobin 29.5 pg (27.0-31.0); Mean Corpuscular Volume 90.5 fl (78.0-98.0); Mean Platelet Volume 10.5 fL (7.4-10.4); Platelet Count 185 10x3/uL (130-400); RBC Distribution Width 12.9 % (11.5-14.5); Red Blood Cell (RBC) Count 4.05 mill/uL (4.20-5.40); White Blood Cell (WBC) Count 20.9 10x3/uL (4.8-10.8)
[2023-01-15 00:33] LABS: ALT (SGPT) 21 U/L (8-55); AST (SGOT) 9 U/L (5-34); Albumin 3.8 g/dL (3.4-4.8); Alkaline Phosphatase 67 U/L (40-110); Anion Gap 24 mmol/L (10-20); BUN (Urea Nitrogen) 89 mg/dL (9.8-20.1); Bilirubin, Total 1.1 mg/dL (0.2-1.2); CK (CPK) 61 U/L (29-168); Calc. Creatinine Clearance 0 mL/min (70-130); Calcium 8.1 mg/dL (7.8-10.44); Carbon Dioxide 15 mmol/L (23-31); Chloride 86 mmol/L (98-107); Estimated GFR 11; Globulin 3.1 g/dL (2.4-3.5); Lipase 45 U/L (8-78); Protein, Total 6.9 g/dL (5.8-8.1); Sodium 120 mmol/L (136-145)
[2023-01-15 00:38] LABS: Band 1 % (5-11); MDiff Complete? YES; Monocytes 2 % (0-10); Neutrophil 97 % (42-75); Platelet Morphology Comment Appears Adequate; RBC Morphology Normal
[2023-01-15 00:43] LABS: Glucose 891 mg/dL (83-110)
[2023-01-15 01:10] LABS: Actual Bicarbonate (HCO3v) 15 mEq/L (22-28); Base Excess -9.4 mEq/L (-2.0 to +3.0); Calcium, Ionized (venous) 0.94 mmol/L (1.16-1.32); Chloride (VBG) 91 mmol/L (98-106); Hemoglobin (Hb) 12.6 g/dL (11.7-16.1); Potassium (VBG) 4.66 mmol/L (3.70-5.30); Sodium 121.8 mmol/L (133-146); pH (venous) 7.35 (7.32-7.43)
[2023-01-15 01:34] LABS: CKMB 2.6 ng/mL (0-6.6)
[2023-01-15] MEDS ORDERED: INSULIN REGULAR IN 0.9 % NACL 100 UNIT/100 ML BAG ONE (02:25)
[2023-01-15] MEDS ORDERED: Electrolyte Replacement Protocol 1 EACH IVPB ONE (02:54)
[2023-01-15] MEDS ORDERED: Dextrose 50% Abboject 50 ML SYRINGE SLOW IVP PRN (02:54)
[2023-01-15] MEDS ORDERED: NS 0.9% w/ 20 MEQ KCL 1,000 ML IV PRN (02:54)
[2023-01-15] MEDS ORDERED: D5 1/2 NS w/20 mEq KCL 1,000 ML IV PRN (02:54)
[2023-01-15] MEDS ORDERED: Sodium Chloride 0.9% 1,000 ML IV PRN ×3 (02:54)
[2023-01-15] MEDS ORDERED: Dextrose 5 %-0.45 % NaCl 1,000 ML IV PRN (02:54)
[2023-01-15] MEDS ORDERED: HUMULIN R 100 UNITS in Sodium Chloride 0.9% 100 ML IVPB SCH (03:00)
[2023-01-15 03:19] LABS: SARS-CoV-2 NAA Rapid Test Not Detected (NotDetected)
[2023-01-15 03:24] LABS: Troponin I 0.186 ng/mL (< 0.028)
[2023-01-15 03:31] LABS: #Lymphocytes 0.2 thou/uL (1.20-3.40); #Monocytes 0.2 thou/uL (0.11-0.59); #Neutrophils 19.1 thou/uL (1.40-6.50); %Lymphocytes 1.2 % (21.0-51.0); %Monocytes 0.8 % (0.0-10.0); %Neutrophils 98.1 % (42.0-75.0); Hemoglobin 10.7 g/dL (12.0-16.0); Mean Corpuscular HGB CONC 32.2 g/dL (32.0-36.0); Mean Corpuscular Hemoglobin 29.1 pg (27.0-31.0); Mean Corpuscular Volume 90.4 fl (78.0-98.0); Mean Platelet Volume 10.2 fL (7.4-10.4); Platelet Count 184 10x3/uL (130-400); RBC Distribution Width 12.7 % (11.5-14.5); Red Blood Cell (RBC) Count 3.69 mill/uL (4.20-5.40); White Blood Cell (WBC) Count 19.5 10x3/uL (4.8-10.8)
[2023-01-15 03:38] LABS: Hemoglobin A1c 9.3 % (4.0-6.0)
[2023-01-15] MEDS: Sodium Chloride 0.9% 1,000 ML IV PRN ×2 (03:55→06:05)
[2023-01-15] MEDS: Benzonatate 100 MG CAP PO PRN (05:07)
[2023-01-15 06:46] LABS: Anion Gap 20 mmol/L (10-20); BUN (Urea Nitrogen) 81 mg/dL (9.8-20.1); Calc. Creatinine Clearance 12 mL/min (70-130); Calcium 7.3 mg/dL (7.8-10.44); Chloride 102 mmol/L (98-107); Estimated GFR 14; Magnesium 1.9 mg/dL (1.6-2.6); Potassium 4.2 mmol/L (3.5-5.1); Sodium 127 mmol/L (136-145)
[2023-01-15 06:48] LABS: Carbon Dioxide 9 mmol/L (23-31); Glucose 552 mg/dL (83-110)
[2023-01-15 06:50] LABS: Troponin I 0.154 ng/mL (< 0.028)
[2023-01-15] MEDS ORDERED: [UNRECOGNIZED DRUG - OTHER] IVPB PRN (08:03)
[2023-01-15] MEDS ORDERED: CEFEPIME IVPB PRN (08:03)
[2023-01-15] MEDS: NS 0.9% w/ 20 MEQ KCL 1,000 ML IV PRN ×2 (08:25→10:34)
[2023-01-15] MEDS: Heparin 5,000 UNITS/ML VIAL SC SCH ×2 (08:27→21:13)
[2023-01-15] MEDS: predniSONE 20 MG TAB PO SCH (08:27)
[2023-01-15] MEDS: Ondansetron PF 4 MG/2 ML Vial IVP PRN ×2 (08:33→17:37)
[2023-01-15 08:48] LABS: Bacteria/HPF 2+ HPF (None Seen); Bilirubin Negative (Negative); Blood, Urine Negative (Negative); CAUTI Indications for Culture Dysuria,urgency,freq; Clarity Turbid (Clear); Glucose, Urine (Dipstick) Greater than 1000 mg/dL (Negative); Ketone, Urine Negative (Negative); Leukocyte 500 Leu/uL (Negative); Nitrite Negative (Negative); Protein, Urine (Dipstick) Negative (Neg-Trace); RBC/HPF 0-3 HPF (0-3); Specific Gravity, Urine 1.014 (1.002-1.036); Squamous Epithelial 0-3 HPF (0-3); Urobilinogen Normal mg/dL (Less than 2); WBC/HPF 21-50 HPF (0-3)
[2023-01-15 08:52] LABS: Urine Culture Reflex Yes Yes
[2023-01-15] MEDS ORDERED: Pantoprazole 40 MG VIAL IVP SCH (09:00)
[2023-01-15] MEDS ORDERED: Citalopram 10 MG TAB PO SCH (09:00)
[2023-01-15] MEDS ORDERED: Vancomycin 1 GM in Premix Bag 1 BAG IVPB SCH (10:00)
[2023-01-15] MEDS: Cefepime 2 GM in Sodium Chloride 0.9% 100 ML IVPB SCH (10:01)
[2023-01-15 10:27] LABS: Anion Gap 17 mmol/L (10-20); BUN (Urea Nitrogen) 74 mg/dL (9.8-20.1); Calc. Creatinine Clearance 14 mL/min (70-130); Calcium 7.2 mg/dL (7.8-10.44); Carbon Dioxide 13 mmol/L (23-31); Chloride 107 mmol/L (98-107); Estimated GFR 16; Glucose 325 mg/dL (83-110); Potassium 3.6 mmol/L (3.5-5.1); Sodium 133 mmol/L (136-145)
[2023-01-15 14:26] LABS: Anion Gap 14 mmol/L (10-20); BUN (Urea Nitrogen) 65 mg/dL (9.8-20.1); Calc. Creatinine Clearance 16 mL/min (70-130); Carbon Dioxide 12 mmol/L (23-31); Chloride 112 mmol/L (98-107); Estimated GFR 19; Glucose 158 mg/dL (83-110); Potassium 4.5 mmol/L (3.5-5.1); Sodium 133 mmol/L (136-145)
[2023-01-15 14:30] LABS: Calcium 6.6 mg/dL (7.8-10.44)
[2023-01-15] MEDS ORDERED: Calcium Gluc 4.6 MEQ/10 ML (100 MG/ML) SLOW IVP SCH (15:15)
[2023-01-15] MEDS ORDERED: Insulin Glargine 30 UNITS/0.3 ML VIAL SC SCH (17:12)
[2023-01-15] MEDS ORDERED: Senokot S 8.6-50 MG TAB PO PRN (17:12)
[2023-01-15] MEDS ORDERED: Dextrose 5% in Water 1,000 ML IV PRN (17:12)
[2023-01-15 18:19] LABS: Anion Gap 18 mmol/L (10-20); BUN (Urea Nitrogen) 60 mg/dL (9.8-20.1); Calc. Creatinine Clearance 17 mL/min (70-130); Calcium 7.3 mg/dL (7.8-10.44); Chloride 112 mmol/L (98-107); Estimated GFR 21; Glucose 216 mg/dL (83-110); Potassium 4.6 mmol/L (3.5-5.1); Sodium 133 mmol/L (136-145)
[2023-01-15 18:26] LABS: Carbon Dioxide 8 mmol/L (23-31)
[2023-01-15] MEDS: Sodium Chloride 0.9% 1,000 ML IV SCH (19:00)
[2023-01-15] MEDS: Arformoterol 15 MCG/2 ML NEB NEB SCH (19:23)
[2023-01-15] MEDS: Budesonide 0.5 MG/2 ML NEB NEB SCH (19:23)
[2023-01-15] MEDS: Atorvastatin Calcium 40 MG TAB PO SCH (21:12)
[2023-01-15] MEDS: Citalopram 10 MG TAB PO SCH (21:13)
[2023-01-15] MEDS: HumaLOG 300 UNITS/3 ML VIAL SC PRN (21:21)
[2023-01-16] MEDS: HumaLOG 300 UNITS/3 ML VIAL SC PRN ×5 (06:07→20:19)
[2023-01-16] MEDS: Arformoterol 15 MCG/2 ML NEB NEB SCH ×2 (06:41→18:48)
[2023-01-16] MEDS: Budesonide 0.5 MG/2 ML NEB NEB SCH ×2 (06:44→18:48)
[2023-01-16 07:02] LABS: #Lymphocytes 0.6 thou/uL (1.20-3.40); #Monocytes 0.9 thou/uL (0.11-0.59); #Neutrophils 16.8 thou/uL (1.40-6.50); %Basophils 0.1 % (0.0-1.0); %Eosinophils 0.1 % (0.0-10.0); %Neutrophils 91.8 % (42.0-75.0); Hemoglobin 11.3 g/dL (12.0-16.0); Mean Corpuscular HGB CONC 33.3 g/dL (32.0-36.0); Mean Corpuscular Hemoglobin 29.9 pg (27.0-31.0); Mean Corpuscular Volume 89.8 fl (78.0-98.0); Mean Platelet Volume 9.9 fL (7.4-10.4); Platelet Count 199 10x3/uL (130-400); RBC Distribution Width 13.2 % (11.5-14.5); Red Blood Cell (RBC) Count 3.77 mill/uL (4.20-5.40); White Blood Cell (WBC) Count 18.3 10x3/uL (4.8-10.8)
[2023-01-16 07:26] LABS: Anion Gap 15 mmol/L (10-20); BUN (Urea Nitrogen) 53 mg/dL (9.8-20.1); Calc. Creatinine Clearance 18 mL/min (70-130); Calcium 7.7 mg/dL (7.8-10.44); Carbon Dioxide 13 mmol/L (23-31); Chloride 110 mmol/L (98-107); Estimated GFR 20; Glucose 280 mg/dL (83-110); Potassium 4.1 mmol/L (3.5-5.1); Sodium 134 mmol/L (136-145)
[2023-01-16] MEDS: Sodium Chloride 0.9% 1,000 ML IV SCH ×2 (08:38→23:43)
[2023-01-16] MEDS: Cefepime 2 GM in Sodium Chloride 0.9% 100 ML IVPB SCH (08:39)
[2023-01-16] MEDS: Heparin 5,000 UNITS/ML VIAL SC SCH ×2 (08:39→20:20)
[2023-01-16] MEDS: Amlodipine 10 MG TAB PO SCH (08:39)
[2023-01-16] MEDS: predniSONE 20 MG TAB PO SCH (08:40)
[2023-01-16] MEDS: Insulin Glargine 30 UNITS/0.3 ML VIAL SC SCH (08:42)
[2023-01-16 10:49] LABS: Vancomycin, Random 11.1 ug/mL (See Comment)
[2023-01-16] MEDS ORDERED: Vancomycin HCl 500 MG in Sodium Chloride 0.9% 100 ML IVPB SCH (11:00)
[2023-01-16] MEDS ORDERED: Vancomycin Dose by Levels Sliding Scale (Wt <71) FS SCH (12:00)
[2023-01-16] MEDS ORDERED: Vancomycin HCl 500 MG in Sodium Chloride 0.9% 100 ML IV SCH (12:00)
[2023-01-16] MEDS ORDERED: Sodium Bicarbonate Tab 325 MG TAB PO SCH (16:00)
[2023-01-16 18:44] LABS: Magnesium 1.7 mg/dL (1.6-2.6)
[2023-01-16] MEDS: Atorvastatin Calcium 40 MG TAB PO SCH (20:18)
[2023-01-16] MEDS: Sodium Bicarbonate Tab 325 MG TAB PO SCH (20:18)
[2023-01-16] MEDS: Citalopram 10 MG TAB PO SCH (20:19)
[2023-01-17] MEDS: Benzonatate 100 MG CAP PO PRN (00:17)
[2023-01-17 06:24] LABS: #Lymphocytes 0.6 thou/uL (1.20-3.40); #Monocytes 1.2 thou/uL (0.11-0.59); #Neutrophils 14.2 thou/uL (1.40-6.50); %Eosinophils 0.1 % (0.0-10.0); %Lymphocytes 3.9 % (21.0-51.0); %Monocytes 7.3 % (0.0-10.0); %Neutrophils 88.7 % (42.0-75.0); Hemoglobin 9.2 g/dL (12.0-16.0); Mean Corpuscular HGB CONC 33.8 g/dL (32.0-36.0); Mean Corpuscular Hemoglobin 30.2 pg (27.0-31.0); Mean Corpuscular Volume 89.5 fl (78.0-98.0); Mean Platelet Volume 9.8 fL (7.4-10.4); Platelet Count 182 10x3/uL (130-400); RBC Distribution Width 13.3 % (11.5-14.5); Red Blood Cell (RBC) Count 3.04 mill/uL (4.20-5.40)
[2023-01-17 07:01] LABS: Anion Gap 13 mmol/L (10-20); BUN (Urea Nitrogen) 41 mg/dL (9.8-20.1); Calc. Creatinine Clearance 22 mL/min (70-130); Calcium 7.1 mg/dL (7.8-10.44); Carbon Dioxide 13 mmol/L (23-31); Chloride 116 mmol/L (98-107); Estimated GFR 22; Glucose 214 mg/dL (83-110); Potassium 3.6 mmol/L (3.5-5.1); Sodium 138 mmol/L (136-145)
[2023-01-17] MEDS: HumaLOG 300 UNITS/3 ML VIAL SC PRN ×4 (07:23→20:28)
[2023-01-17] MEDS: Arformoterol 15 MCG/2 ML NEB NEB SCH ×2 (08:10→19:54)
[2023-01-17] MEDS: Budesonide 0.5 MG/2 ML NEB NEB SCH ×2 (08:11→19:54)
[2023-01-17] MEDS: Cefepime 2 GM in Sodium Chloride 0.9% 100 ML IVPB SCH (09:45)
[2023-01-17] MEDS: Sodium Bicarbonate Tab 325 MG TAB PO SCH ×3 (09:46→20:31)
[2023-01-17] MEDS: Heparin 5,000 UNITS/ML VIAL SC SCH ×2 (09:46→20:27)
[2023-01-17] MEDS: predniSONE 20 MG TAB PO SCH (09:46)
[2023-01-17] MEDS: Amlodipine 10 MG TAB PO SCH (09:46)
[2023-01-17] MEDS: Insulin Glargine 30 UNITS/0.3 ML VIAL SC SCH (09:47)
[2023-01-17] MEDS: Ergocalciferol 1.25 MG(50,000 UNITS) CAP PO SCH (09:50)
[2023-01-17 11:28] LABS: Vancomycin, Random 13.6 ug/mL (See Comment)
[2023-01-17] MEDS ORDERED: Vancomycin HCl 500 MG in Sodium Chloride 0.9% 100 ML IVPB SCH (11:45)
[2023-01-17] MEDS ORDERED: hydrOXYzine 25 MG TAB PO PRN (15:26)
[2023-01-17] MEDS: Sodium Chloride 0.9% 1,000 ML IV SCH (19:41)
[2023-01-17] MEDS: Citalopram 10 MG TAB PO SCH (20:31)
[2023-01-17] MEDS: Atorvastatin Calcium 40 MG TAB PO SCH (20:31)
[2023-01-18] MEDS: Acetaminophen 325 MG TAB PO PRN (02:45)
[2023-01-18] MEDS: Sodium Chloride 0.9% 1,000 ML IV SCH ×3 (04:08→23:43)
[2023-01-18] MEDS: HumaLOG 300 UNITS/3 ML VIAL SC PRN ×4 (05:55→21:29)
[2023-01-18 06:27] LABS: Anion Gap 15 mmol/L (10-20); BUN (Urea Nitrogen) 39 mg/dL (9.8-20.1); Calc. Creatinine Clearance 18 mL/min (70-130); Calcium 7.5 mg/dL (7.8-10.44); Carbon Dioxide 14 mmol/L (23-31); Chloride 114 mmol/L (98-107); Estimated GFR 20; Glucose 315 mg/dL (83-110); Potassium 3.9 mmol/L (3.5-5.1); Sodium 139 mmol/L (136-145)
[2023-01-18] MEDS: Arformoterol 15 MCG/2 ML NEB NEB SCH ×2 (07:22→19:14)
[2023-01-18] MEDS: Budesonide 0.5 MG/2 ML NEB NEB SCH ×2 (07:23→19:16)
[2023-01-18] MEDS: Cefepime 2 GM in Sodium Chloride 0.9% 100 ML IVPB SCH (09:04)
[2023-01-18] MEDS: predniSONE 20 MG TAB PO SCH (09:04)
[2023-01-18] MEDS: Amlodipine 10 MG TAB PO SCH (09:05)
[2023-01-18] MEDS: Insulin Glargine 30 UNITS/0.3 ML VIAL SC SCH (09:05)
[2023-01-18] MEDS: Heparin 5,000 UNITS/ML VIAL SC SCH ×2 (09:05→21:04)
[2023-01-18] MEDS: Sodium Bicarbonate Tab 325 MG TAB PO SCH ×3 (09:05→21:03)
[2023-01-18] MEDS: Benzonatate 100 MG CAP PO PRN ×2 (09:09→22:25)
[2023-01-18 12:28] LABS: Vancomycin, Random 15.4 ug/mL (See Comment)
[2023-01-18] MEDS ORDERED: Vancomycin HCl 500 MG in Sodium Chloride 0.9% 100 ML IVPB SCH (13:00)
[2023-01-18] MEDS: Atorvastatin Calcium 40 MG TAB PO SCH (21:04)
[2023-01-18] MEDS: Citalopram 10 MG TAB PO SCH (21:05)
[2023-01-18] MEDS: hydrOXYzine 25 MG TAB PO PRN (23:36)
[2023-01-19 06:05] LABS: #Lymphocytes 0.8 thou/uL (1.20-3.40); #Monocytes 0.6 thou/uL (0.11-0.59); #Neutrophils 12.9 thou/uL (1.40-6.50); %Eosinophils 0.2 % (0.0-10.0); %Lymphocytes 5.8 % (21.0-51.0); %Monocytes 4.4 % (0.0-10.0); %Neutrophils 89.6 % (42.0-75.0); Hemoglobin 8.9 g/dL (12.0-16.0); Mean Corpuscular HGB CONC 33.2 g/dL (32.0-36.0); Mean Corpuscular Hemoglobin 30.1 pg (27.0-31.0); Mean Corpuscular Volume 90.6 fl (78.0-98.0); Mean Platelet Volume 9.7 fL (7.4-10.4); Platelet Count 186 10x3/uL (130-400); RBC Distribution Width 13.6 % (11.5-14.5); Red Blood Cell (RBC) Count 2.97 mill/uL (4.20-5.40); White Blood Cell (WBC) Count 14.4 10x3/uL (4.8-10.8)
[2023-01-19] MEDS: HumaLOG 300 UNITS/3 ML VIAL SC PRN ×4 (06:27→20:47)
[2023-01-19 06:32] LABS: Anion Gap 14 mmol/L (10-20); BUN (Urea Nitrogen) 35 mg/dL (9.8-20.1); Calc. Creatinine Clearance 19 mL/min (70-130); Calcium 7.3 mg/dL (7.8-10.44); Carbon Dioxide 14 mmol/L (23-31); Chloride 116 mmol/L (98-107); Estimated GFR 20; Glucose 281 mg/dL (83-110); Potassium 3.3 mmol/L (3.5-5.1); Sodium 141 mmol/L (136-145)
[2023-01-19] MEDS: Benzonatate 100 MG CAP PO PRN ×2 (06:32→20:48)
[2023-01-19] MEDS: Cefepime 2 GM in Sodium Chloride 0.9% 100 ML IVPB SCH (09:06)
[2023-01-19] MEDS: Sodium Bicarbonate Tab 325 MG TAB PO SCH ×3 (09:08→20:46)
[2023-01-19] MEDS: predniSONE 20 MG TAB PO SCH (09:08)
[2023-01-19] MEDS: Amlodipine 10 MG TAB PO SCH (09:09)
[2023-01-19] MEDS: Arformoterol 15 MCG/2 ML NEB NEB SCH ×2 (09:09→18:24)
[2023-01-19] MEDS: Heparin 5,000 UNITS/ML VIAL SC SCH ×2 (09:10→20:47)
[2023-01-19] MEDS: Budesonide 0.5 MG/2 ML NEB NEB SCH ×2 (09:10→18:22)
[2023-01-19] MEDS: Insulin Glargine 30 UNITS/0.3 ML VIAL SC SCH (09:11)
[2023-01-19] MEDS ORDERED: hydrOXYzine 25 MG TAB PO PRN (12:57)
[2023-01-19] MEDS: hydrOXYzine 25 MG TAB PO PRN (13:12)
[2023-01-19] MEDS ORDERED: Potassium Chloride 20 MEQ TAB PO SCH (13:15)
[2023-01-19] MEDS: Vancomycin HCl 500 MG in Sodium Chloride 0.9% 100 ML IVPB SCH (16:12)
[2023-01-19] MEDS: Citalopram 10 MG TAB PO SCH (20:46)
[2023-01-19] MEDS: Atorvastatin Calcium 40 MG TAB PO SCH (20:47)
[2023-01-20] MEDS: Benzonatate 100 MG CAP PO PRN ×3 (05:15→20:22)
[2023-01-20] MEDS: HumaLOG 300 UNITS/3 ML VIAL SC PRN ×2 (05:15→16:50)
[2023-01-20 06:00] LABS: #Eosinphils 0.1 thou/uL (0.0-0.7); #Lymphocytes 1.1 thou/uL (1.20-3.40); #Monocytes 0.9 thou/uL (0.11-0.59); #Neutrophils 12.8 thou/uL (1.40-6.50); %Basophils 0.2 % (0.0-1.0); %Eosinophils 0.6 % (0.0-10.0); %Lymphocytes 7.4 % (21.0-51.0); %Monocytes 6.3 % (0.0-10.0); %Neutrophils 85.6 % (42.0-75.0); Hemoglobin 8.7 g/dL (12.0-16.0); Mean Corpuscular HGB CONC 32.9 g/dL (32.0-36.0); Mean Corpuscular Hemoglobin 30.2 pg (27.0-31.0); Mean Corpuscular Volume 91.7 fl (78.0-98.0); Mean Platelet Volume 9.6 fL (7.4-10.4); Platelet Count 207 10x3/uL (130-400); RBC Distribution Width 13.7 % (11.5-14.5); Red Blood Cell (RBC) Count 2.89 mill/uL (4.20-5.40)
[2023-01-20 06:16] LABS: Anion Gap 13 mmol/L (10-20); BUN (Urea Nitrogen) 35 mg/dL (9.8-20.1); Calc. Creatinine Clearance 20 mL/min (70-130); Calcium 7.3 mg/dL (7.8-10.44); Carbon Dioxide 15 mmol/L (23-31); Chloride 118 mmol/L (98-107); Estimated GFR 21; Glucose 253 mg/dL (83-110); Potassium 3.6 mmol/L (3.5-5.1); Sodium 142 mmol/L (136-145)
[2023-01-20 07:16] LABS: Magnesium 1.5 mg/dL (1.6-2.6)
[2023-01-20 07:18] LABS: Phosphorus 1.3 mg/dL (2.3-4.7)
[2023-01-20] MEDS: Cefepime 2 GM in Sodium Chloride 0.9% 100 ML IVPB SCH (08:03)
[2023-01-20] MEDS: Amlodipine 10 MG TAB PO SCH (08:03)
[2023-01-20] MEDS: Sodium Bicarbonate Tab 325 MG TAB PO SCH ×3 (08:03→20:23)
[2023-01-20] MEDS: Heparin 5,000 UNITS/ML VIAL SC SCH ×2 (08:04→20:22)
[2023-01-20] MEDS: predniSONE 20 MG TAB PO SCH (08:04)
[2023-01-20] MEDS: Insulin Glargine 30 UNITS/0.3 ML VIAL SC SCH (08:09)
[2023-01-20] MEDS: Arformoterol 15 MCG/2 ML NEB NEB SCH ×2 (08:48→19:31)
[2023-01-20] MEDS: Budesonide 0.5 MG/2 ML NEB NEB SCH ×2 (08:49→19:29)
[2023-01-20] MEDS ORDERED: Magnesium Sulfate In Water 4 GM in Premix Bag 1 BAG IVPB SCH (09:00)
[2023-01-20] MEDS ORDERED: Sodium Phosphate 30 MMOL in Sodium Chloride 0.9% 250 ML 250 ML IVPB SCH (09:00)
[2023-01-20] MEDS ORDERED: EPOETIN ALFA-EPBX (ESRD) 10,000 UNIT/ML VIAL SC SCH (12:00)
[2023-01-20] MEDS: Vancomycin HCl 500 MG in Sodium Chloride 0.9% 100 ML IVPB SCH (15:39)
[2023-01-20] MEDS: Calcium Carbonate 600 MG TAB PO SCH (20:22)
[2023-01-20] MEDS: Citalopram 10 MG TAB PO SCH (20:22)
[2023-01-20] MEDS: Carvedilol 3.125 MG TAB PO SCH (20:22)
[2023-01-20] MEDS: Atorvastatin Calcium 40 MG TAB PO SCH (20:22)
[2023-01-20] MEDS: Dextromethorphan 30 MG/5 ML (89 ML BOTTLE) PO PRN (23:12)
[2023-01-21 05:59] LABS: #Eosinphils 0.2 thou/uL (0.0-0.7); #Lymphocytes 2.1 thou/uL (1.20-3.40); #Neutrophils 13.4 thou/uL (1.40-6.50); %Basophils 0.1 % (0.0-1.0); %Eosinophils 1.5 % (0.0-10.0); %Lymphocytes 12.6 % (21.0-51.0); %Neutrophils 79.9 % (42.0-75.0); Hemoglobin 9.7 g/dL (12.0-16.0); Mean Corpuscular HGB CONC 32.8 g/dL (32.0-36.0); Mean Corpuscular Hemoglobin 29.9 pg (27.0-31.0); Mean Corpuscular Volume 91.1 fl (78.0-98.0); Mean Platelet Volume 9.5 fL (7.4-10.4); Platelet Count 246 10x3/uL (130-400); Red Blood Cell (RBC) Count 3.25 mill/uL (4.20-5.40); White Blood Cell (WBC) Count 16.8 10x3/uL (4.8-10.8)
[2023-01-21 06:22] LABS: Albumin 3.1 g/dL (3.4-4.8); Anion Gap 13 mmol/L (10-20); BUN (Urea Nitrogen) 34 mg/dL (9.8-20.1); BUN/Creatinine Ratio 14.98; Calc. Creatinine Clearance 22 mL/min (70-130); Calcium 7.2 mg/dL (7.8-10.44); Carbon Dioxide 17 mmol/L (23-31); Chloride 118 mmol/L (98-107); Estimated GFR 22; Glucose 51 mg/dL (83-110); Magnesium 2.3 mg/dL (1.6-2.6); Phosphorus 2.1 mg/dL (2.3-4.7); Potassium 3.1 mmol/L (3.5-5.1); Sodium 145 mmol/L (136-145)
[2023-01-21] MEDS ORDERED: Potassium Bicarbonate/Cit Ac 20 MEQ TAB PO SCH (06:45)
[2023-01-21] MEDS ORDERED: Potassium Phosphate 30 MMOL in Sodium Chloride 0.9% 250 ML 250 ML IVPB SCH (06:45)
[2023-01-21] MEDS: Dextromethorphan 30 MG/5 ML (89 ML BOTTLE) PO PRN (07:06)
[2023-01-21] MEDS: Arformoterol 15 MCG/2 ML NEB NEB SCH ×2 (07:39→19:40)
[2023-01-21] MEDS: Budesonide 0.5 MG/2 ML NEB NEB SCH ×2 (07:40→19:41)
[2023-01-21] MEDS: Insulin Glargine 30 UNITS/0.3 ML VIAL SC SCH (09:00)
[2023-01-21] MEDS: Amlodipine 10 MG TAB PO SCH (09:30)
[2023-01-21] MEDS: predniSONE 20 MG TAB PO SCH (09:30)
[2023-01-21] MEDS: Cefepime 2 GM in Sodium Chloride 0.9% 100 ML IVPB SCH ×2 (09:31→11:49)
[2023-01-21] MEDS: Sodium Bicarbonate Tab 325 MG TAB PO SCH ×3 (09:31→20:39)
[2023-01-21] MEDS: Carvedilol 3.125 MG TAB PO SCH (09:31)
[2023-01-21] MEDS: Calcium Carbonate 600 MG TAB PO SCH ×2 (09:31→20:37)
[2023-01-21] MEDS: Heparin 5,000 UNITS/ML VIAL SC SCH ×2 (09:32→20:38)
[2023-01-21] MEDS ORDERED: Carvedilol 3.125 MG TAB PO SCH (09:45)
[2023-01-21] MEDS ORDERED: Benzonatate 100 MG CAP PO PRN (10:35)
[2023-01-21] MEDS ORDERED: Potassium Chloride 20 MEQ TAB PO SCH (10:45)
[2023-01-21] MEDS ORDERED: Senokot S 8.6-50 MG TAB PO PRN (11:04)
[2023-01-21] MEDS: HumaLOG 300 UNITS/3 ML VIAL SC PRN ×2 (12:11→20:42)
[2023-01-21] MEDS ORDERED: Insulin Glargine 30 UNITS/0.3 ML VIAL SC SCH (14:00)
[2023-01-21 14:13] LABS: Vancomycin, Trough 15.3 ug/mL
[2023-01-21] MEDS: Vancomycin HCl 500 MG in Sodium Chloride 0.9% 100 ML IVPB SCH (16:44)
[2023-01-21 17:00] LABS: Potassium 4.5 mmol/L (3.5-5.1)
[2023-01-21] MEDS: Atorvastatin Calcium 40 MG TAB PO SCH (20:36)
[2023-01-21] MEDS: Carvedilol 6.25 MG TAB PO SCH (20:37)
[2023-01-21] MEDS: Citalopram 10 MG TAB PO SCH (20:37)
[2023-01-21] MEDS ORDERED: ALPRAZolam 0.25 MG TAB PO SCH (21:15)
[2023-01-22 04:55] LABS: #Eosinphils 0.1 thou/uL (0.0-0.7); #Lymphocytes 1.1 thou/uL (1.20-3.40); #Monocytes 0.7 thou/uL (0.11-0.59); #Neutrophils 9.4 thou/uL (1.40-6.50); %Basophils 0.1 % (0.0-1.0); %Eosinophils 0.9 % (0.0-10.0); %Lymphocytes 9.6 % (21.0-51.0); %Monocytes 6.4 % (0.0-10.0); %Neutrophils 83.1 % (42.0-75.0); Hemoglobin 8.8 g/dL (12.0-16.0); Mean Corpuscular HGB CONC 32.3 g/dL (32.0-36.0); Mean Corpuscular Hemoglobin 29.2 pg (27.0-31.0); Mean Corpuscular Volume 90.6 fl (78.0-98.0); Mean Platelet Volume 9.6 fL (7.4-10.4); Platelet Count 214 10x3/uL (130-400); RBC Distribution Width 14.1 % (11.5-14.5); Red Blood Cell (RBC) Count 3.01 mill/uL (4.20-5.40); White Blood Cell (WBC) Count 11.3 10x3/uL (4.8-10.8)
[2023-01-22 05:23] LABS: Anion Gap 13 mmol/L (10-20); BUN (Urea Nitrogen) 33 mg/dL (9.8-20.1); BUN/Creatinine Ratio 13.64; Calc. Creatinine Clearance 20 mL/min (70-130); Calcium 7.3 mg/dL (7.8-10.44); Carbon Dioxide 17 mmol/L (23-31); Chloride 116 mmol/L (98-107); Estimated GFR 21; Glucose 197 mg/dL (83-110); Phosphorus 2.3 mg/dL (2.3-4.7); Potassium 3.8 mmol/L (3.5-5.1); Sodium 142 mmol/L (136-145)
[2023-01-22] MEDS: HumaLOG 300 UNITS/3 ML VIAL SC PRN ×4 (06:56→21:38)
[2023-01-22] MEDS: Arformoterol 15 MCG/2 ML NEB NEB SCH ×2 (08:00→19:28)
[2023-01-22] MEDS: Budesonide 0.5 MG/2 ML NEB NEB SCH ×2 (08:02→19:29)
[2023-01-22] MEDS: Sodium Bicarbonate Tab 325 MG TAB PO SCH ×3 (08:58→21:36)
[2023-01-22] MEDS: Cefepime 2 GM in Sodium Chloride 0.9% 100 ML IVPB SCH (09:00)
[2023-01-22] MEDS ORDERED: Insulin Glargine 30 UNITS/0.3 ML VIAL SC SCH (09:00)
[2023-01-22] MEDS: Amlodipine 10 MG TAB PO SCH (09:01)
[2023-01-22] MEDS: predniSONE 20 MG TAB PO SCH (09:01)
[2023-01-22] MEDS: Heparin 5,000 UNITS/ML VIAL SC SCH ×2 (09:02→21:40)
[2023-01-22] MEDS: Calcium Carbonate 600 MG TAB PO SCH ×2 (09:02→21:38)
[2023-01-22] MEDS: Carvedilol 6.25 MG TAB PO SCH ×2 (09:02→21:37)
[2023-01-22] MEDS ORDERED: guaiFENesin ER 600 MG TAB PO SCH (10:00)
[2023-01-22] MEDS ORDERED: Torsemide 20 MG TAB PO SCH (10:00)
[2023-01-22] MEDS: Vancomycin HCl 500 MG in Sodium Chloride 0.9% 100 ML IVPB SCH (15:20)
[2023-01-22] MEDS: ALPRAZolam 0.25 MG TAB PO PRN (21:35)
[2023-01-22] MEDS: guaiFENesin ER 600 MG TAB PO SCH (21:37)
[2023-01-22] MEDS: Atorvastatin Calcium 40 MG TAB PO SCH (21:38)
[2023-01-22] MEDS: Citalopram 10 MG TAB PO SCH (21:38)
[2023-01-22] MEDS: Insulin Glargine 30 UNITS/0.3 ML VIAL SC SCH (21:40)
[2023-01-23 06:17] LABS: #Eosinphils 0.1 thou/uL (0.0-0.7); #Lymphocytes 1.6 thou/uL (1.20-3.40); %Basophils 0.1 % (0.0-1.0); %Eosinophils 0.9 % (0.0-10.0); %Lymphocytes 11.8 % (21.0-51.0); %Neutrophils 80.4 % (42.0-75.0); Hemoglobin 9.8 g/dL (12.0-16.0); Mean Corpuscular HGB CONC 32.8 g/dL (32.0-36.0); Mean Corpuscular Hemoglobin 30.1 pg (27.0-31.0); Mean Corpuscular Volume 91.8 fl (78.0-98.0); Mean Platelet Volume 9.4 fL (7.4-10.4); Platelet Count 205 10x3/uL (130-400); RBC Distribution Width 14.4 % (11.5-14.5); Red Blood Cell (RBC) Count 3.26 mill/uL (4.20-5.40); White Blood Cell (WBC) Count 13.6 10x3/uL (4.8-10.8)
[2023-01-23 06:35] LABS: Albumin 2.8 g/dL (3.4-4.8); Anion Gap 13 mmol/L (10-20); BUN (Urea Nitrogen) 33 mg/dL (9.8-20.1); Calc. Creatinine Clearance 21 mL/min (70-130); Calcium 7.2 mg/dL (7.8-10.44); Carbon Dioxide 17 mmol/L (23-31); Chloride 115 mmol/L (98-107); Estimated GFR 20; Glucose 65 mg/dL (83-110); Phosphorus 2.1 mg/dL (2.3-4.7); Potassium 3.3 mmol/L (3.5-5.1); Sodium 142 mmol/L (136-145)
[2023-01-23] MEDS: Arformoterol 15 MCG/2 ML NEB NEB SCH ×2 (06:41→19:13)
[2023-01-23] MEDS: Budesonide 0.5 MG/2 ML NEB NEB SCH ×2 (06:44→19:16)
[2023-01-23] MEDS ORDERED: Potassium Bicarbonate/Cit Ac 20 MEQ TAB PO SCH (07:00)
[2023-01-23 07:01] LABS: Magnesium 1.9 mg/dL (1.6-2.6)
[2023-01-23] MEDS: Cefepime 2 GM in Sodium Chloride 0.9% 100 ML IVPB SCH (07:46)
[2023-01-23] MEDS: Insulin Glargine 30 UNITS/0.3 ML VIAL SC SCH ×2 (07:46→21:39)
[2023-01-23] MEDS: Heparin 5,000 UNITS/ML VIAL SC SCH ×2 (07:46→21:40)
[2023-01-23] MEDS: Carvedilol 6.25 MG TAB PO SCH ×2 (07:47→21:38)
[2023-01-23] MEDS: guaiFENesin ER 600 MG TAB PO SCH ×2 (07:47→21:37)
[2023-01-23] MEDS: predniSONE 20 MG TAB PO SCH (07:47)
[2023-01-23] MEDS: Amlodipine 10 MG TAB PO SCH (07:47)
[2023-01-23] MEDS ORDERED: Potassium Phosphate 30 MMOL in Sodium Chloride 0.9% 250 ML 250 ML IVPB SCH (08:00)
[2023-01-23] MEDS: Sodium Bicarbonate Tab 325 MG TAB PO SCH ×3 (10:08→21:36)
[2023-01-23] MEDS: Calcium Carbonate 600 MG TAB PO SCH ×3 (10:08→21:38)
[2023-01-23] MEDS: Vancomycin HCl 500 MG in Sodium Chloride 0.9% 100 ML IVPB SCH (14:11)
[2023-01-23 14:35] LABS: Vancomycin, Trough 16.5 ug/mL
[2023-01-23] MEDS: HumaLOG 300 UNITS/3 ML VIAL SC PRN (16:23)
[2023-01-23] MEDS ORDERED: Insulin Glargine 30 UNITS/0.3 ML VIAL SC SCH (21:00)
[2023-01-23] MEDS: ALPRAZolam 0.25 MG TAB PO PRN (21:34)
[2023-01-23] MEDS: Atorvastatin Calcium 40 MG TAB PO SCH (21:37)
[2023-01-23] MEDS: Citalopram 10 MG TAB PO SCH (21:38)
[2023-01-24] MEDS: Acetaminophen 325 MG TAB PO PRN (05:20)
[2023-01-24 05:40] LABS: #Eosinphils 0.1 thou/uL (0.0-0.7); #Lymphocytes 1.5 thou/uL (1.20-3.40); #Monocytes 0.7 thou/uL (0.11-0.59); #Neutrophils 8.6 thou/uL (1.40-6.50); %Basophils 0.1 % (0.0-1.0); %Lymphocytes 13.5 % (21.0-51.0); %Monocytes 6.5 % (0.0-10.0); %Neutrophils 78.8 % (42.0-75.0); Hemoglobin 8.4 g/dL (12.0-16.0); Mean Corpuscular HGB CONC 34.1 g/dL (32.0-36.0); Mean Corpuscular Hemoglobin 30.8 pg (27.0-31.0); Mean Corpuscular Volume 90.3 fl (78.0-98.0); Mean Platelet Volume 9.3 fL (7.4-10.4); Platelet Count 208 10x3/uL (130-400); RBC Distribution Width 14.7 % (11.5-14.5); Red Blood Cell (RBC) Count 2.73 mill/uL (4.20-5.40); White Blood Cell (WBC) Count 10.9 10x3/uL (4.8-10.8)
[2023-01-24 06:05] LABS: Albumin 2.4 g/dL (3.4-4.8); Anion Gap 13 mmol/L (10-20); BUN (Urea Nitrogen) 33 mg/dL (9.8-20.1); BUN/Creatinine Ratio 12.18; Calc. Creatinine Clearance 20 mL/min (70-130); Calcium 7.1 mg/dL (7.8-10.44); Carbon Dioxide 18 mmol/L (23-31); Chloride 116 mmol/L (98-107); Estimated GFR 18; Glucose 105 mg/dL (83-110); Magnesium 1.5 mg/dL (1.6-2.6); Phosphorus 2.9 mg/dL (2.3-4.7); Potassium 3.9 mmol/L (3.5-5.1); Sodium 143 mmol/L (136-145)
[2023-01-24 06:51] VITALS: BMI 22.9
[2023-01-24] MEDS: Arformoterol 15 MCG/2 ML NEB NEB SCH ×2 (07:41→18:39)
[2023-01-24] MEDS: Budesonide 0.5 MG/2 ML NEB NEB SCH ×2 (07:41→18:40)
[2023-01-24] MEDS ORDERED: Magnesium Sulfate In Water 4 GM in Premix Bag 1 BAG IVPB SCH ×2 (08:00→09:00)
[2023-01-24] MEDS: Albumin 25% 25 GM/100 ML BOT IVPB SCH ×2 (09:02→16:18)
[2023-01-24] MEDS: predniSONE 20 MG TAB PO SCH (09:03)
[2023-01-24] MEDS: Calcium Carbonate 600 MG TAB PO SCH ×3 (09:03→22:25)
[2023-01-24] MEDS: Amlodipine 10 MG TAB PO SCH (09:04)
[2023-01-24] MEDS: guaiFENesin ER 600 MG TAB PO SCH ×2 (09:04→22:27)
[2023-01-24] MEDS: Carvedilol 6.25 MG TAB PO SCH ×2 (09:05→22:27)
[2023-01-24] MEDS: PHOS-NAK 1 PKT PACK PO SCH ×3 (09:05→22:24)
[2023-01-24] MEDS: Heparin 5,000 UNITS/ML VIAL SC SCH ×2 (09:05→22:31)
[2023-01-24] MEDS: Ergocalciferol 1.25 MG(50,000 UNITS) CAP PO SCH (09:05)
[2023-01-24] MEDS: Insulin Glargine 30 UNITS/0.3 ML VIAL SC SCH ×2 (09:06→22:28)
[2023-01-24] MEDS: Sodium Bicarbonate Tab 325 MG TAB PO SCH ×3 (09:57→22:26)
[2023-01-24] MEDS: Cefepime 2 GM in Sodium Chloride 0.9% 100 ML IVPB SCH ×2 (11:22→12:03)
[2023-01-24] MEDS: HumaLOG 300 UNITS/3 ML VIAL SC PRN ×2 (12:04→22:32)
[2023-01-24] MEDS: Vancomycin HCl 500 MG in Sodium Chloride 0.9% 100 ML IVPB SCH (14:47)
[2023-01-24] MEDS: Citalopram 10 MG TAB PO SCH (22:26)
[2023-01-24] MEDS: ALPRAZolam 0.25 MG TAB PO PRN (22:27)
[2023-01-24] MEDS: Atorvastatin Calcium 40 MG TAB PO SCH (22:27)
[2023-01-25] MEDS: Albumin 25% 25 GM/100 ML BOT IVPB SCH (00:24)
[2023-01-25] MEDS: Acetaminophen 325 MG TAB PO PRN (01:36)
[2023-01-25 05:40] LABS: #Eosinphils 0.1 thou/uL (0.0-0.7); #Lymphocytes 1.1 thou/uL (1.20-3.40); #Monocytes 0.6 thou/uL (0.11-0.59); %Basophils 0.1 % (0.0-1.0); %Eosinophils 0.7 % (0.0-10.0); %Lymphocytes 11.5 % (21.0-51.0); %Monocytes 5.9 % (0.0-10.0); %Neutrophils 81.8 % (42.0-75.0); Hemoglobin 7.2 g/dL (12.0-16.0); Mean Corpuscular HGB CONC 32.3 g/dL (32.0-36.0); Mean Corpuscular Hemoglobin 29.1 pg (27.0-31.0); Mean Corpuscular Volume 90.1 fl (78.0-98.0); Mean Platelet Volume 8.8 fL (7.4-10.4); Platelet Count 184 10x3/uL (130-400); RBC Distribution Width 15.2 % (11.5-14.5); Red Blood Cell (RBC) Count 2.48 mill/uL (4.20-5.40); White Blood Cell (WBC) Count 9.8 10x3/uL (4.8-10.8)
[2023-01-25 05:56] LABS: Anion Gap 14 mmol/L (10-20); BUN (Urea Nitrogen) 36 mg/dL (9.8-20.1); BUN/Creatinine Ratio 14.52; Calc. Creatinine Clearance 21 mL/min (70-130); Calcium 7.3 mg/dL (7.8-10.44); Carbon Dioxide 21 mmol/L (23-31); Chloride 113 mmol/L (98-107); Estimated GFR 20; Glucose 123 mg/dL (83-110); Phosphorus 3.6 mg/dL (2.3-4.7); Potassium 3.6 mmol/L (3.5-5.1); Sodium 144 mmol/L (136-145)
[2023-01-25] MEDS: Arformoterol 15 MCG/2 ML NEB NEB SCH (07:06)
[2023-01-25] MEDS: Budesonide 0.5 MG/2 ML NEB NEB SCH (07:08)
[2023-01-25] MEDS ORDERED: EPOETIN ALFA-EPBX (ESRD) 10,000 UNIT/ML VIAL SC SCH (07:15)
[2023-01-25] MEDS ORDERED: Iron, Sodium Ferric Gluconate 250 MG in Sodium Chloride 0.9% 250 ML 250 ML IVPB SCH (08:00)
[2023-01-25] MEDS: Sodium Bicarbonate Tab 325 MG TAB PO SCH (08:13)
[2023-01-25] MEDS: Calcium Carbonate 600 MG TAB PO SCH (08:14)
[2023-01-25] MEDS: guaiFENesin ER 600 MG TAB PO SCH (08:15)
[2023-01-25] MEDS: PHOS-NAK 1 PKT PACK PO SCH (08:15)
[2023-01-25] MEDS: Carvedilol 6.25 MG TAB PO SCH (08:15)
[2023-01-25] MEDS: Amlodipine 10 MG TAB PO SCH (08:16)
[2023-01-25] MEDS: Insulin Glargine 30 UNITS/0.3 ML VIAL SC SCH (08:16)
[2023-01-25] MEDS: Heparin 5,000 UNITS/ML VIAL SC SCH (08:16)
[2023-01-25] MEDS: predniSONE 20 MG TAB PO SCH (08:17)
[2023-01-25 08:47] VITALS: BP 136/75; TEMP 98.8
[2023-01-25] MEDS ORDERED: Potassium Bicarbonate/Cit Ac 20 MEQ TAB PO SCH (11:30)
[2023-01-25] MEDS: Cefepime 2 GM in Sodium Chloride 0.9% 100 ML IVPB SCH (12:00)
[2023-01-25] MEDS ORDERED: Magnesium Oxide 400 MG TAB PO SCH (21:00)
== END 2023-01-25 15:45 | disposition home or self-care (01) | DRG 637 ==
LOC: ERS 22:39 → CCU 01-15 02:13 → MSONC 01-16 10:17
PROVIDERS: ADMIT Internal Medicine; ATTEND Internal Medicine
DX: E11.10 Type 2 diabetes mellitus with ketoacidosis without coma (principal); J18.9 Pneumonia, unspecified organism; E87.1 Hypo-osmolality and hyponatremia; N17.9 Acute kidney failure, unspecified; N18.4 Chronic kidney disease, stage 4 (severe); I25.810 Atherosclerosis of coronary artery bypass graft(s) without angina pectoris; E78.5 Hyperlipidemia, unspecified; D86.9 Sarcoidosis, unspecified; E11.22 Type 2 diabetes mellitus with diabetic chronic kidney disease; I12.9 Hypertensive chronic kidney disease with stage 1 through stage 4 chronic kidney disease, or unspecified chronic kidney disease; E83.39 Other disorders of phosphorus metabolism; E55.9 Vitamin D deficiency, unspecified; D63.1 Anemia in chronic kidney disease; E83.42 Hypomagnesemia; E87.6 Hypokalemia; I27.21 Secondary pulmonary arterial hypertension; I25.2 Old myocardial infarction; Z88.0 Allergy status to penicillin; Z95.1 Presence of aortocoronary bypass graft; Z79.4 Long term (current) use of insulin
CPT/HCPCS: 36415; 36416; 71045; 80048; 80053; 80069; 80202; 81001; 82010; 82040; 82306; 82550; 82553; 82805; 83036; 83605; 83690; 83735; 83880; 83930; 84100; 84484; 85025; 87040; 87077; 87086; 87186; 93005; 93306; 94640; 96361; 96365; 96376; C9113; J0612; J0692; J1644; J1815; J2405; J2916; J3370; J3370-JW; J3475; J3480; J3490; J7050; J7512; J7626; P9047; Q5105; U0002

== ENCOUNTER 2023-01-26 03:23 | Inpatient (IN) | payer MEDICARE ==
[2023-01-26] MEDS ORDERED: Furosemide 40 MG/4 ML VIAL ONE ×2 (05:20→06:41)
[2023-01-26 05:35] LABS: Hemoglobin 9.5 g/dL (12.0-16.0); Mean Corpuscular HGB CONC 32.4 g/dL (32.0-36.0); Mean Corpuscular Hemoglobin 29.2 pg (27.0-31.0); Mean Corpuscular Volume 89.9 fl (78.0-98.0); Mean Platelet Volume 9.1 fL (7.4-10.4); Platelet Count 272 10x3/uL (130-400); RBC Distribution Width 15.8 % (11.5-14.5); Red Blood Cell (RBC) Count 3.25 mill/uL (4.20-5.40); White Blood Cell (WBC) Count 20.5 10x3/uL (4.8-10.8)
[2023-01-26 05:38] LABS: ALT (SGPT) 16 U/L (8-55); AST (SGOT) 13 U/L (5-34); Albumin 3.7 g/dL (3.4-4.8); Alkaline Phosphatase 48 U/L (40-110); Anion Gap 17 mmol/L (10-20); BUN (Urea Nitrogen) 37 mg/dL (9.8-20.1); Bilirubin, Total 0.7 mg/dL (0.2-1.2); Calc. Creatinine Clearance 0 mL/min (70-130); Calcium 7.6 mg/dL (7.8-10.44); Carbon Dioxide 19 mmol/L (23-31); Chloride 111 mmol/L (98-107); Estimated GFR 18; Globulin 2.3 g/dL (2.4-3.5); Glucose 266 mg/dL (83-110); Potassium 4.3 mmol/L (3.5-5.1); Sodium 143 mmol/L (136-145)
[2023-01-26 05:58] LABS: Anisocytosis SLIGHT = 6-15 cells (100X) (0-5/hpf); Crenated RBC SLIGHT = 1-5 cells (100X) (None Seen); Lymphocytes 8 % (21-51); MDiff Complete? YES; Monocytes 1 % (0-10); Neutrophil 91 % (42-75); Platelet Morphology Comment Appears Adequate; Polychromasia SLIGHT = 2-3 cells (100X) (0-2/hpf); Vacuoles SLIGHT
[2023-01-26 06:05] LABS: Actual Bicarbonate (HCO3a) 21.2 mEq/L (22-28); Analyzer IN Cardio ER; Base Excess (BEa) -2.1 mEq/L (-2.0 to +3.0); CO2 Tension 30.8 mmHg (35.0-45.0); Carboxyhemoglobin (COHb) 0.3 gm% (0.0-3.0); Hematocrit-ABG 30 % (36.0-47.0); Hemoglobin (Hb) 10.1 g/dL (12.0-16.0); Potassium - ABG Lab 3.33 mmol/L (3.70-5.30); pH, Arterial 7.455 (7.35-7.45)
[2023-01-26 06:06] LABS: O2 Tension (PaO2), arterial 54.6 mmHg (> 70.0)
[2023-01-26 06:07] LABS: Puncture Site RRA
[2023-01-26 06:11] LABS: CKMB 3.4 ng/mL (0-6.6)
[2023-01-26] MEDS ORDERED: Sodium Chloride 0.9% 1,000 ML IV SCH ×2 (06:30→10:45)
[2023-01-26 07:52] LABS: Troponin I 0.537 ng/mL (< 0.028)
[2023-01-26 07:58] LABS: Prothrombin Time 13.9 sec (12.0-14.7)
[2023-01-26] MEDS ORDERED: Dextrose 50% Abboject 50 ML SYRINGE SLOW IVP PRN (08:48)
[2023-01-26] MEDS ORDERED: Dextrose 5% in Water 1,000 ML IV PRN (08:48)
[2023-01-26] MEDS ORDERED: VANCOMYCIN IVPB PRN (08:58)
[2023-01-26 09:00] LABS: Bacteria/HPF None Seen HPF (None Seen); Bilirubin Negative (Negative); Blood, Urine 1+ (Negative); CAUTI Indications for Culture Immunosuppressed; Clarity Clear (Clear); Glucose, Urine (Dipstick) 500 mg/dL (Negative); Ketone, Urine Negative (Negative); Leukocyte Negative Leu/uL (Negative); Nitrite Negative (Negative); Protein, Urine (Dipstick) 10 mg/dL (Neg-Trace); Specific Gravity, Urine 1.007 (1.002-1.036); Squamous Epithelial None Seen HPF (0-3); Urobilinogen Normal mg/dL (Less than 2); WBC/HPF 0-3 HPF (0-3); pH, Urine 6.5 (5.0-9.0)
[2023-01-26] MEDS ORDERED: methylPREDNISolone Sod Succ/PF 125 MG/2 ML VIAL IVP SCH (09:00)
[2023-01-26] MEDS ORDERED: Meropenem 1 GM in Sodium Chloride 0.9% 100 ML IVPB SCH (09:00)
[2023-01-26] MEDS ORDERED: Vancomycin 1 GM in Premix Bag 1 BAG IVPB SCH (09:00)
[2023-01-26 09:02] LABS: RBC/HPF 0-3 HPF (0-3)
[2023-01-26 09:04] LABS: Urine Culture Reflex Yes Yes
[2023-01-26 10:45] LABS: Actual Bicarbonate (HCO3v) 22.6 mEq/L (22-28); Base Excess -0.7 mEq/L (-2.0 to +3.0); Calcium, Ionized (venous) 0.93 mmol/L (1.16-1.32); Chloride (VBG) 107 mmol/L (98-106); Hematocrit-VBG 32 % (36.0-47.0); Potassium (VBG) 3.86 mmol/L (3.70-5.30); Sodium 142.4 mmol/L (133-146)
[2023-01-26] MEDS: Vancomycin HCl 500 MG, Admixture Fee 1 EACH in Sodium Chloride 0.9% 100 ML IVPB SCH (10:52)
[2023-01-26] MEDS: Aspirin Chewable 81 MG TAB PO SCH (10:53)
[2023-01-26 11:13] LABS: Legionella Urinary Ag Negative (Negative); Strep pneumo Urine Ag NEGATIVE (NEGATIVE)
[2023-01-26 11:22] LABS: SARS-CoV-2 NAA Rapid Test Not Detected (NotDetected)
[2023-01-26] MEDS: Furosemide 40 MG/4 ML VIAL SLOW IVP SCH (12:27)
[2023-01-26] MEDS: HumaLOG 300 UNITS/3 ML VIAL SC PRN ×2 (12:27→21:12)
[2023-01-26] MEDS ORDERED: Furosemide 40 MG/4 ML VIAL SLOW IVP SCH (13:00)
[2023-01-26] MEDS: Ipratropium Bromide 2.5 ml Neb NEB SCH ×3 (14:05→21:59)
[2023-01-26] MEDS: methylPREDNISolone Sod Succ/PF 125 MG/2 ML VIAL IVP SCH ×2 (14:13→21:15)
[2023-01-26] MEDS: Meropenem 500 MG in Sodium Chloride 0.9% 100 ML IVPB SCH (18:47)
[2023-01-27] MEDS: HumaLOG 300 UNITS/3 ML VIAL SC PRN ×3 (00:47→17:27)
[2023-01-27] MEDS: methylPREDNISolone Sod Succ/PF 125 MG/2 ML VIAL IVP SCH ×4 (03:19→21:06)
[2023-01-27 04:09] LABS: Hemoglobin A1c 8.8 % (4.0-6.0)
[2023-01-27 04:12] LABS: #Lymphocytes 0.6 thou/uL (1.20-3.40); #Monocytes 0.3 thou/uL (0.11-0.59); #Neutrophils 17.6 thou/uL (1.40-6.50); %Eosinophils 0.1 % (0.0-10.0); %Lymphocytes 3.1 % (21.0-51.0); %Monocytes 1.6 % (0.0-10.0); %Neutrophils 95.2 % (42.0-75.0); Hemoglobin 10.3 g/dL (12.0-16.0); Mean Corpuscular HGB CONC 32.4 g/dL (32.0-36.0); Mean Corpuscular Volume 92.7 fl (78.0-98.0); Mean Platelet Volume 9.3 fL (7.4-10.4); Platelet Count 259 10x3/uL (130-400); RBC Distribution Width 16.6 % (11.5-14.5); Red Blood Cell (RBC) Count 3.42 mill/uL (4.20-5.40); White Blood Cell (WBC) Count 18.5 10x3/uL (4.8-10.8)
[2023-01-27] MEDS ORDERED: Lorazepam 2 MG/ML VIAL ONE (04:21)
[2023-01-27 04:29] LABS: ALT (SGPT) 12 U/L (8-55); AST (SGOT) 9 U/L (5-34); Albumin 3.5 g/dL (3.4-4.8); Alkaline Phosphatase 51 U/L (40-110); Anion Gap 20 mmol/L (10-20); BUN (Urea Nitrogen) 41 mg/dL (9.8-20.1); Bilirubin, Direct 0.5 mg/dL (0.1-0.3); Calc. Creatinine Clearance 18 mL/min (70-130); Calcium 8.1 mg/dL (7.8-10.44); Carbon Dioxide 18 mmol/L (23-31); Chloride 109 mmol/L (98-107); Estimated GFR 17; Glucose 241 mg/dL (83-110); Magnesium 2.1 mg/dL (1.6-2.6); Protein, Total 6.4 g/dL (5.8-8.1); Sodium 143 mmol/L (136-145)
[2023-01-27] MEDS ORDERED: Lorazepam 2 MG/ML VIAL SLOW IVP SCH (04:30)
[2023-01-27 04:43] LABS: Phosphorus 4.1 mg/dL (2.3-4.7)
[2023-01-27] MEDS: Meropenem 500 MG in Sodium Chloride 0.9% 100 ML IVPB SCH ×2 (04:55→15:55)
[2023-01-27] MEDS: Furosemide 40 MG/4 ML VIAL SLOW IVP SCH ×2 (05:46→13:06)
[2023-01-27] MEDS: Ipratropium Bromide 2.5 ml Neb NEB SCH ×4 (07:01→23:19)
[2023-01-27] MEDS: Lorazepam 2 MG/ML VIAL SLOW IVP PRN (07:20)
[2023-01-27] MEDS: Sodium Bicarbonate Tab 325 MG TAB PO SCH ×2 (08:32→21:06)
[2023-01-27] MEDS: Aspirin Chewable 81 MG TAB PO SCH (08:32)
[2023-01-27] MEDS: Vancomycin HCl 500 MG, Admixture Fee 1 EACH in Sodium Chloride 0.9% 100 ML IVPB SCH (09:57)
[2023-01-27 10:50] LABS: Anion Gap 18 mmol/L (10-20); BUN (Urea Nitrogen) 43 mg/dL (9.8-20.1); Calc. Creatinine Clearance 18 mL/min (70-130); Calcium 7.6 mg/dL (7.8-10.44); Carbon Dioxide 20 mmol/L (23-31); Chloride 110 mmol/L (98-107); Estimated GFR 16; Glucose 254 mg/dL (83-110); Sodium 144 mmol/L (136-145)
[2023-01-27 11:44] LABS: CKMB 7.1 ng/mL (0-6.6)
[2023-01-27] MEDS: Scopolamine 1.5 mg/72 hour Patch TOP SCH (14:06)
[2023-01-27] MEDS ORDERED: Carvedilol 6.25 MG TAB PO SCH (21:00)
[2023-01-27] MEDS: Atorvastatin Calcium 40 MG TAB PO SCH (21:06)
[2023-01-28] MEDS: HumaLOG 300 UNITS/3 ML VIAL SC PRN ×4 (00:44→17:36)
[2023-01-28] MEDS: methylPREDNISolone Sod Succ/PF 125 MG/2 ML VIAL IVP SCH ×4 (02:58→20:38)
[2023-01-28 04:00] LABS: #Lymphocytes 0.4 thou/uL (1.20-3.40); #Monocytes 0.4 thou/uL (0.11-0.59); #Neutrophils 11.1 thou/uL (1.40-6.50); %Eosinophils 0.1 % (0.0-10.0); %Lymphocytes 3.7 % (21.0-51.0); %Monocytes 3.1 % (0.0-10.0); %Neutrophils 93.1 % (42.0-75.0); Mean Corpuscular HGB CONC 31.7 g/dL (32.0-36.0); Mean Corpuscular Hemoglobin 29.5 pg (27.0-31.0); Mean Corpuscular Volume 93.1 fl (78.0-98.0); Mean Platelet Volume 9.2 fL (7.4-10.4); Platelet Count 188 10x3/uL (130-400); RBC Distribution Width 16.8 % (11.5-14.5); Red Blood Cell (RBC) Count 3.04 mill/uL (4.20-5.40); White Blood Cell (WBC) Count 11.9 10x3/uL (4.8-10.8)
[2023-01-28 04:21] LABS: Phosphorus 5.4 mg/dL (2.3-4.7)
[2023-01-28 04:22] LABS: ALT (SGPT) 10 U/L (8-55); AST (SGOT) 13 U/L (5-34); Alkaline Phosphatase 40 U/L (40-110); Anion Gap 18 mmol/L (10-20); BUN (Urea Nitrogen) 48 mg/dL (9.8-20.1); Bilirubin, Total 0.9 mg/dL (0.2-1.2); Calc. Creatinine Clearance 17 mL/min (70-130); Calcium 7.5 mg/dL (7.8-10.44); Carbon Dioxide 20 mmol/L (23-31); Chloride 110 mmol/L (98-107); Estimated GFR 15; Globulin 2.6 g/dL (2.4-3.5); Glucose 259 mg/dL (83-110); Potassium 4.4 mmol/L (3.5-5.1); Protein, Total 5.6 g/dL (5.8-8.1); Sodium 144 mmol/L (136-145)
[2023-01-28] MEDS: Meropenem 500 MG in Sodium Chloride 0.9% 100 ML IVPB SCH ×2 (04:49→15:59)
[2023-01-28] MEDS: Furosemide 40 MG/4 ML VIAL SLOW IVP SCH ×2 (05:30→14:05)
[2023-01-28] MEDS: Ipratropium Bromide 2.5 ml Neb NEB SCH ×4 (07:24→22:23)
[2023-01-28 08:05] LABS: Vancomycin, Random 16.5 ug/mL (See Comment)
[2023-01-28] MEDS: Aspirin Chewable 81 MG TAB PO SCH (08:38)
[2023-01-28] MEDS: Pantoprazole 40 MG VIAL IVP SCH (08:38)
[2023-01-28] MEDS: Sodium Bicarbonate Tab 325 MG TAB PO SCH ×2 (08:38→20:37)
[2023-01-28] MEDS ORDERED: Amlodipine 10 MG TAB PO SCH (09:00)
[2023-01-28] MEDS: Vancomycin HCl 500 MG, Admixture Fee 1 EACH in Sodium Chloride 0.9% 100 ML IVPB SCH (09:37)
[2023-01-28] MEDS ORDERED: Dextrose 5% in Water 1,000 ML IV PRN (17:27)
[2023-01-28] MEDS ORDERED: Dextrose 50% Abboject 50 ML SYRINGE SLOW IVP PRN (17:27)
[2023-01-28] MEDS: Atorvastatin Calcium 40 MG TAB PO SCH (20:37)
[2023-01-28] MEDS: Calcium Carbonate 500 MG ChewTAB PO SCH (20:38)
[2023-01-29] MEDS: HumaLOG 300 UNITS/3 ML VIAL SC PRN ×5 (00:05→23:39)
[2023-01-29] MEDS: methylPREDNISolone Sod Succ/PF 125 MG/2 ML VIAL IVP SCH ×3 (02:35→14:53)
[2023-01-29 04:14] LABS: #Lymphocytes 0.2 thou/uL (1.20-3.40); #Monocytes 0.3 thou/uL (0.11-0.59); #Neutrophils 8.1 thou/uL (1.40-6.50); %Basophils 0.4 % (0.0-1.0); %Eosinophils 0.1 % (0.0-10.0); %Lymphocytes 2.5 % (21.0-51.0); %Monocytes 3.9 % (0.0-10.0); %Neutrophils 93.2 % (42.0-75.0); Mean Corpuscular HGB CONC 33.3 g/dL (32.0-36.0); Mean Corpuscular Hemoglobin 31.1 pg (27.0-31.0); Mean Corpuscular Volume 93.2 fl (78.0-98.0); Mean Platelet Volume 9.2 fL (7.4-10.4); Platelet Count 166 10x3/uL (130-400); RBC Distribution Width 16.9 % (11.5-14.5); White Blood Cell (WBC) Count 8.7 10x3/uL (4.8-10.8)
[2023-01-29 04:40] LABS: ALT (SGPT) 7 U/L (8-55); AST (SGOT) 8 U/L (5-34); Albumin 3.3 g/dL (3.4-4.8); Alkaline Phosphatase 40 U/L (40-110); Anion Gap 16 mmol/L (10-20); BUN (Urea Nitrogen) 51 mg/dL (9.8-20.1); Bilirubin, Total 0.8 mg/dL (0.2-1.2); Calc. Creatinine Clearance 15 mL/min (70-130); Calcium 7.3 mg/dL (7.8-10.44); Carbon Dioxide 23 mmol/L (23-31); Chloride 106 mmol/L (98-107); Estimated GFR 13; Globulin 2.3 g/dL (2.4-3.5); Glucose 270 mg/dL (83-110); Magnesium 1.8 mg/dL (1.6-2.6); Potassium 3.7 mmol/L (3.5-5.1); Protein, Total 5.6 g/dL (5.8-8.1); Sodium 141 mmol/L (136-145)
[2023-01-29] MEDS: Meropenem 500 MG in Sodium Chloride 0.9% 100 ML IVPB SCH (05:46)
[2023-01-29] MEDS ORDERED: Furosemide 40 MG/4 ML VIAL SLOW IVP SCH (06:00)
[2023-01-29] MEDS: Ipratropium Bromide 2.5 ml Neb NEB SCH (07:05)
[2023-01-29] MEDS: Ipratropium/Albuterol 3 ML NEB NEB SCH ×4 (07:07→23:14)
[2023-01-29] MEDS: Calcium Carbonate 500 MG ChewTAB PO SCH ×2 (08:03→20:35)
[2023-01-29] MEDS: Aspirin Chewable 81 MG TAB PO SCH (08:03)
[2023-01-29] MEDS: Pantoprazole 40 MG VIAL IVP SCH (08:04)
[2023-01-29] MEDS: Sodium Bicarbonate Tab 325 MG TAB PO SCH ×2 (08:07→20:35)
[2023-01-29] MEDS: Ergocalciferol 1.25 MG(50,000 UNITS) CAP PO SCH (08:07)
[2023-01-29] MEDS: Amiodarone 450 MG, Admixture Fee 1 EACH in Dextrose 5% in Water 250 ML IVPB SCH ×2 (12:37→19:48)
[2023-01-29] MEDS: Atorvastatin Calcium 40 MG TAB PO SCH (20:35)
[2023-01-29] MEDS: Cefdinir 300 MG CAP PO SCH (20:36)
[2023-01-29] MEDS: Lorazepam 2 MG/ML VIAL SLOW IVP PRN (23:41)
[2023-01-30 04:02] LABS: #Lymphocytes 0.3 thou/uL (1.20-3.40); #Monocytes 0.6 thou/uL (0.11-0.59); #Neutrophils 9.2 thou/uL (1.40-6.50); %Lymphocytes 2.5 % (21.0-51.0); %Monocytes 5.7 % (0.0-10.0); %Neutrophils 91.7 % (42.0-75.0); Hemoglobin 8.7 g/dL (12.0-16.0); Mean Corpuscular Hemoglobin 30.7 pg (27.0-31.0); Mean Corpuscular Volume 93.1 fl (78.0-98.0); Mean Platelet Volume 9.4 fL (7.4-10.4); Platelet Count 159 10x3/uL (130-400); RBC Distribution Width 16.7 % (11.5-14.5); Red Blood Cell (RBC) Count 2.83 mill/uL (4.20-5.40); White Blood Cell (WBC) Count 10.1 10x3/uL (4.8-10.8)
[2023-01-30 04:24] LABS: Anion Gap 17 mmol/L (10-20); BUN (Urea Nitrogen) 57 mg/dL (9.8-20.1); Calc. Creatinine Clearance 14 mL/min (70-130); Calcium 7.2 mg/dL (7.8-10.44); Carbon Dioxide 21 mmol/L (23-31); Chloride 104 mmol/L (98-107); Estimated GFR 12; Glucose 387 mg/dL (83-110); Magnesium 1.9 mg/dL (1.6-2.6); Potassium 3.6 mmol/L (3.5-5.1); Sodium 138 mmol/L (136-145)
[2023-01-30] MEDS: HumaLOG 300 UNITS/3 ML VIAL SC PRN ×3 (05:47→18:24)
[2023-01-30] MEDS: Ipratropium/Albuterol 3 ML NEB NEB SCH ×3 (06:53→19:49)
[2023-01-30] MEDS: Sodium Bicarbonate Tab 325 MG TAB PO SCH ×2 (08:55→20:39)
[2023-01-30] MEDS: Calcium Carbonate 500 MG ChewTAB PO SCH ×3 (08:55→22:49)
[2023-01-30] MEDS: Aspirin Chewable 81 MG TAB PO SCH (08:56)
[2023-01-30] MEDS: predniSONE 20 MG TAB PO SCH (08:56)
[2023-01-30] MEDS: Amiodarone 200 MG TAB PO SCH ×2 (08:56→20:30)
[2023-01-30] MEDS: Furosemide 40 MG/4 ML VIAL SLOW IVP SCH (08:57)
[2023-01-30] MEDS: Insulin Glargine 30 UNITS/0.3 ML VIAL SC SCH ×2 (08:58→20:30)
[2023-01-30] MEDS: EPOETIN ALFA-EPBX (ESRD) 10,000 UNITS/ML VIAL SC SCH (10:06)
[2023-01-30 13:13] LABS: Iron 58 ug/dL (50-170); Iron Binding Capacity, Total 163 mcg/dL (265-497)
[2023-01-30] MEDS: Scopolamine 1.5 mg/72 hour Patch TOP SCH (14:54)
[2023-01-30] MEDS: Atorvastatin Calcium 40 MG TAB PO SCH (20:30)
[2023-01-30] MEDS: Cefdinir 300 MG CAP PO SCH (20:30)
[2023-01-31] MEDS: Ipratropium/Albuterol 3 ML NEB NEB SCH ×5 (01:55→23:17)
[2023-01-31 04:54] LABS: #Lymphocytes 0.6 thou/uL (1.20-3.40); #Monocytes 0.6 thou/uL (0.11-0.59); #Neutrophils 8.7 thou/uL (1.40-6.50); %Basophils 0.2 % (0.0-1.0); %Eosinophils 0.4 % (0.0-10.0); %Lymphocytes 6.1 % (21.0-51.0); %Neutrophils 87.3 % (42.0-75.0); Hemoglobin 8.8 g/dL (12.0-16.0); Mean Corpuscular HGB CONC 32.9 g/dL (32.0-36.0); Mean Corpuscular Hemoglobin 30.9 pg (27.0-31.0); Mean Corpuscular Volume 93.9 fl (78.0-98.0); Mean Platelet Volume 8.9 fL (7.4-10.4); Platelet Count 156 10x3/uL (130-400); RBC Distribution Width 16.7 % (11.5-14.5); Red Blood Cell (RBC) Count 2.84 mill/uL (4.20-5.40)
[2023-01-31 05:16] LABS: Anion Gap 13 mmol/L (10-20); BUN (Urea Nitrogen) 59 mg/dL (9.8-20.1); Calc. Creatinine Clearance 15 mL/min (70-130); Calcium 7.1 mg/dL (7.8-10.44); Carbon Dioxide 26 mmol/L (23-31); Chloride 105 mmol/L (98-107); Estimated GFR 12; Glucose 102 mg/dL (83-110); Magnesium 1.8 mg/dL (1.6-2.6); Potassium 3.4 mmol/L (3.5-5.1); Sodium 141 mmol/L (136-145)
[2023-01-31] MEDS: Aspirin Chewable 81 MG TAB PO SCH (08:38)
[2023-01-31] MEDS: Sodium Bicarbonate Tab 325 MG TAB PO SCH ×2 (08:38→21:09)
[2023-01-31] MEDS: predniSONE 20 MG TAB PO SCH (08:38)
[2023-01-31] MEDS: Calcium Carbonate 500 MG ChewTAB PO SCH ×3 (08:38→21:10)
[2023-01-31] MEDS: Amiodarone 200 MG TAB PO SCH ×2 (08:38→21:09)
[2023-01-31] MEDS: Insulin Glargine 30 UNITS/0.3 ML VIAL SC SCH ×3 (08:39→21:08)
[2023-01-31] MEDS ORDERED: Potassium Chloride 20 MEQ TAB PO SCH (10:00)
[2023-01-31] MEDS: Lorazepam 2 MG/ML VIAL SLOW IVP PRN ×2 (10:07→21:05)
[2023-01-31] MEDS: Cefdinir 300 MG CAP PO SCH (21:09)
[2023-01-31] MEDS: Atorvastatin Calcium 40 MG TAB PO SCH (21:09)
[2023-02-01] MEDS: Lorazepam 2 MG/ML VIAL SLOW IVP PRN (00:09)
[2023-02-01] MEDS: HumaLOG 300 UNITS/3 ML VIAL SC PRN ×2 (00:13→18:22)
[2023-02-01] MEDS: Acetaminophen 325 MG TAB PO PRN (02:43)
[2023-02-01 04:11] LABS: #Eosinphils 0.1 thou/uL (0.0-0.7); #Lymphocytes 0.3 thou/uL (1.20-3.40); #Monocytes 0.5 thou/uL (0.11-0.59); #Neutrophils 7.5 thou/uL (1.40-6.50); %Eosinophils 0.8 % (0.0-10.0); %Lymphocytes 3.5 % (21.0-51.0); %Monocytes 6.4 % (0.0-10.0); %Neutrophils 89.3 % (42.0-75.0); Hemoglobin 8.8 g/dL (12.0-16.0); Mean Corpuscular HGB CONC 32.6 g/dL (32.0-36.0); Mean Corpuscular Hemoglobin 31.1 pg (27.0-31.0); Mean Corpuscular Volume 95.2 fl (78.0-98.0); Mean Platelet Volume 9.2 fL (7.4-10.4); Platelet Count 155 10x3/uL (130-400); RBC Distribution Width 17.2 % (11.5-14.5); Red Blood Cell (RBC) Count 2.83 mill/uL (4.20-5.40); White Blood Cell (WBC) Count 8.4 10x3/uL (4.8-10.8)
[2023-02-01 04:35] LABS: Anion Gap 15 mmol/L (10-20); BUN (Urea Nitrogen) 59 mg/dL (9.8-20.1); Calc. Creatinine Clearance 15 mL/min (70-130); Carbon Dioxide 24 mmol/L (23-31); Chloride 107 mmol/L (98-107); Estimated GFR 13; Glucose 174 mg/dL (83-110); Magnesium 1.7 mg/dL (1.6-2.6); Potassium 3.8 mmol/L (3.5-5.1); Sodium 142 mmol/L (136-145)
[2023-02-01] MEDS: Ipratropium/Albuterol 3 ML NEB NEB SCH ×3 (06:38→19:25)
[2023-02-01] MEDS: predniSONE 20 MG TAB PO SCH (09:46)
[2023-02-01] MEDS: Aspirin Chewable 81 MG TAB PO SCH (09:46)
[2023-02-01] MEDS: Sodium Bicarbonate Tab 325 MG TAB PO SCH ×2 (09:46→20:35)
[2023-02-01] MEDS: Amiodarone 200 MG TAB PO SCH ×2 (09:46→20:36)
[2023-02-01] MEDS: Calcium Carbonate 500 MG ChewTAB PO SCH ×3 (09:46→20:36)
[2023-02-01] MEDS: Insulin Glargine 30 UNITS/0.3 ML VIAL SC SCH (20:36)
[2023-02-01] MEDS: Cefdinir 300 MG CAP PO SCH (20:36)
[2023-02-01] MEDS: Atorvastatin Calcium 40 MG TAB PO SCH (20:36)
[2023-02-02] MEDS: Lorazepam 2 MG/ML VIAL SLOW IVP PRN (00:13)
[2023-02-02] MEDS: Ipratropium/Albuterol 3 ML NEB NEB SCH ×4 (00:14→18:30)
[2023-02-02 05:54] LABS: #Lymphocytes 0.5 thou/uL (1.20-3.40); #Monocytes 0.6 thou/uL (0.11-0.59); #Neutrophils 7.9 thou/uL (1.40-6.50); %Eosinophils 0.5 % (0.0-10.0); %Lymphocytes 5.3 % (21.0-51.0); %Neutrophils 87.2 % (42.0-75.0); Hemoglobin 9.6 g/dL (12.0-16.0); Mean Corpuscular HGB CONC 32.9 g/dL (32.0-36.0); Mean Corpuscular Hemoglobin 31.6 pg (27.0-31.0); Mean Corpuscular Volume 95.9 fl (78.0-98.0); Mean Platelet Volume 9.9 fL (7.4-10.4); Platelet Count 160 10x3/uL (130-400); RBC Distribution Width 17.4 % (11.5-14.5); Red Blood Cell (RBC) Count 3.03 mill/uL (4.20-5.40)
[2023-02-02 06:07] LABS: Anion Gap 15 mmol/L (10-20); BUN (Urea Nitrogen) 53 mg/dL (9.8-20.1); Calc. Creatinine Clearance 18 mL/min (70-130); Calcium 7.1 mg/dL (7.8-10.44); Carbon Dioxide 22 mmol/L (23-31); Chloride 108 mmol/L (98-107); Estimated GFR 14; Glucose 177 mg/dL (83-110); Magnesium 1.6 mg/dL (1.6-2.6); Potassium 3.8 mmol/L (3.5-5.1); Sodium 141 mmol/L (136-145)
[2023-02-02] MEDS: Potassium Chloride 20 MEQ TAB PO SCH (09:50)
[2023-02-02] MEDS: Aspirin Chewable 81 MG TAB PO SCH (09:51)
[2023-02-02] MEDS: Amiodarone 200 MG TAB PO SCH ×2 (09:51→21:17)
[2023-02-02] MEDS: predniSONE 20 MG TAB PO SCH (09:51)
[2023-02-02] MEDS: Sodium Bicarbonate Tab 325 MG TAB PO SCH ×2 (09:51→21:18)
[2023-02-02] MEDS: Calcium Carbonate 500 MG ChewTAB PO SCH ×3 (09:51→21:17)
[2023-02-02] MEDS: Acetaminophen 325 MG TAB PO PRN (09:51)
[2023-02-02] MEDS: Furosemide 40 MG/4 ML VIAL SLOW IVP SCH (09:52)
[2023-02-02] MEDS ORDERED: Furosemide 20 MG/2 ML VIAL SLOW IVP SCH (16:00)
[2023-02-02] MEDS: Scopolamine 1.5 mg/72 hour Patch TOP SCH (17:26)
[2023-02-02] MEDS: Insulin Glargine 30 UNITS/0.3 ML VIAL SC SCH (21:18)
[2023-02-02] MEDS: Atorvastatin Calcium 40 MG TAB PO SCH (21:18)
[2023-02-02] MEDS: HumaLOG 300 UNITS/3 ML VIAL SC PRN (21:18)
[2023-02-02] MEDS: Cefdinir 300 MG CAP PO SCH (21:18)
[2023-02-03] MEDS: Ipratropium/Albuterol 3 ML NEB NEB SCH ×4 (00:16→18:27)
[2023-02-03 04:24] LABS: Phosphorus 3.1 mg/dL (2.3-4.7)
[2023-02-03 04:25] LABS: Anion Gap 16 mmol/L (10-20); BUN (Urea Nitrogen) 54 mg/dL (9.8-20.1); Calc. Creatinine Clearance 19 mL/min (70-130); Calcium 7.3 mg/dL (7.8-10.44); Carbon Dioxide 24 mmol/L (23-31); Chloride 107 mmol/L (98-107); Estimated GFR 15; Glucose 189 mg/dL (83-110); Potassium 3.6 mmol/L (3.5-5.1); Sodium 143 mmol/L (136-145)
[2023-02-03] MEDS: Furosemide 20 MG/2 ML VIAL SLOW IVP SCH ×2 (07:42→16:39)
[2023-02-03] MEDS: Aspirin Chewable 81 MG TAB PO SCH (09:29)
[2023-02-03] MEDS: Sodium Bicarbonate Tab 325 MG TAB PO SCH ×2 (09:29→20:53)
[2023-02-03] MEDS: Potassium Chloride 20 MEQ TAB PO SCH (09:29)
[2023-02-03] MEDS: Calcium Carbonate 500 MG ChewTAB PO SCH ×3 (09:29→21:11)
[2023-02-03] MEDS: predniSONE 20 MG TAB PO SCH (09:29)
[2023-02-03] MEDS: Amiodarone 200 MG TAB PO SCH ×2 (09:29→20:53)
[2023-02-03] MEDS: Cefdinir 300 MG CAP PO SCH (20:53)
[2023-02-03] MEDS: Insulin Glargine 30 UNITS/0.3 ML VIAL SC SCH (20:53)
[2023-02-03] MEDS: Atorvastatin Calcium 40 MG TAB PO SCH (20:53)
[2023-02-03] MEDS: Docusate 100 MG CAP PO PRN (20:53)
[2023-02-03] MEDS: HumaLOG 300 UNITS/3 ML VIAL SC PRN (21:00)
[2023-02-04] MEDS: Ipratropium/Albuterol 3 ML NEB NEB SCH ×5 (00:09→22:51)
[2023-02-04] MEDS: Furosemide 20 MG/2 ML VIAL SLOW IVP SCH ×2 (06:37→15:49)
[2023-02-04 08:33] LABS: Albumin 3.1 g/dL (3.4-4.8); Anion Gap 15 mmol/L (10-20); BUN (Urea Nitrogen) 51 mg/dL (9.8-20.1); BUN/Creatinine Ratio 16.61; Calc. Creatinine Clearance 20 mL/min (70-130); Calcium 7.6 mg/dL (7.8-10.44); Carbon Dioxide 24 mmol/L (23-31); Chloride 107 mmol/L (98-107); Estimated GFR 16; Glucose 87 mg/dL (83-110); Phosphorus 2.5 mg/dL (2.3-4.7); Potassium 3.9 mmol/L (3.5-5.1); Sodium 142 mmol/L (136-145)
[2023-02-04] MEDS: Aspirin Chewable 81 MG TAB PO SCH (09:25)
[2023-02-04] MEDS: predniSONE 20 MG TAB PO SCH (09:25)
[2023-02-04] MEDS: Sodium Bicarbonate Tab 325 MG TAB PO SCH (09:25)
[2023-02-04] MEDS: Amiodarone 200 MG TAB PO SCH ×2 (09:25→21:06)
[2023-02-04] MEDS: Docusate 100 MG CAP PO PRN (09:25)
[2023-02-04] MEDS: Potassium Chloride 20 MEQ TAB PO SCH (09:25)
[2023-02-04] MEDS: Calcium Carbonate 500 MG ChewTAB PO SCH ×3 (09:27→21:06)
[2023-02-04] MEDS ORDERED: Megestrol Acetate 800 MG/20 ML UDCUP PO SCH (10:45)
[2023-02-04] MEDS: Atorvastatin Calcium 40 MG TAB PO SCH (21:06)
[2023-02-04] MEDS: Cefdinir 300 MG CAP PO SCH (21:06)
[2023-02-04] MEDS: guaiFENesin ER 600 MG TAB PO SCH (21:06)
[2023-02-04] MEDS: Insulin Glargine 30 UNITS/0.3 ML VIAL SC SCH (21:08)
[2023-02-05] MEDS: Furosemide 20 MG/2 ML VIAL SLOW IVP SCH ×2 (05:54→15:07)
[2023-02-05] MEDS: HumaLOG 300 UNITS/3 ML VIAL SC PRN ×2 (05:57→16:54)
[2023-02-05] MEDS: Ipratropium/Albuterol 3 ML NEB NEB SCH ×3 (08:29→18:25)
[2023-02-05 08:51] LABS: Albumin 3.1 g/dL (3.4-4.8); Anion Gap 17 mmol/L (10-20); BUN (Urea Nitrogen) 47 mg/dL (9.8-20.1); BUN/Creatinine Ratio 15.11; Calc. Creatinine Clearance 19 mL/min (70-130); Calcium 7.5 mg/dL (7.8-10.44); Carbon Dioxide 21 mmol/L (23-31); Chloride 109 mmol/L (98-107); Estimated GFR 15; Glucose 75 mg/dL (83-110); Phosphorus 2.2 mg/dL (2.3-4.7); Potassium 4.2 mmol/L (3.5-5.1); Sodium 143 mmol/L (136-145)
[2023-02-05] MEDS: predniSONE 5 MG TAB PO SCH (10:41)
[2023-02-05] MEDS: Amiodarone 200 MG TAB PO SCH ×2 (10:41→21:29)
[2023-02-05] MEDS: Potassium Chloride 20 MEQ TAB PO SCH (10:41)
[2023-02-05] MEDS: Calcium Carbonate 500 MG ChewTAB PO SCH ×3 (10:41→21:28)
[2023-02-05] MEDS: Docusate 100 MG CAP PO PRN (10:42)
[2023-02-05] MEDS: guaiFENesin ER 600 MG TAB PO SCH ×2 (10:42→21:29)
[2023-02-05] MEDS: Aspirin Chewable 81 MG TAB PO SCH (10:42)
[2023-02-05] MEDS: Ergocalciferol 1.25 MG(50,000 UNITS) CAP PO SCH ×2 (10:43→10:44)
[2023-02-05] MEDS ORDERED: Megestrol Acetate 400 MG/10 ML UDCUP PO SCH (16:45)
[2023-02-05] MEDS ORDERED: Megestrol Acetate 800 MG/20 ML UDCUP PO SCH (17:00)
[2023-02-05] MEDS: Insulin Glargine 30 UNITS/0.3 ML VIAL SC SCH (21:28)
[2023-02-05] MEDS: Atorvastatin Calcium 40 MG TAB PO SCH (21:28)
[2023-02-05] MEDS: Temazepam 15 MG CAP PO PRN (21:28)
[2023-02-05] MEDS: Acetaminophen 325 MG TAB PO PRN (21:28)
[2023-02-05] MEDS: PHOS-NAK 1 PKT PACK PO SCH (21:29)
[2023-02-06] MEDS: Ipratropium/Albuterol 3 ML NEB NEB SCH ×5 (01:45→23:54)
[2023-02-06] MEDS: Furosemide 20 MG/2 ML VIAL SLOW IVP SCH ×2 (06:08→15:18)
[2023-02-06 08:05] LABS: Albumin 2.6 g/dL (3.4-4.8); Anion Gap 16 mmol/L (10-20); BUN (Urea Nitrogen) 45 mg/dL (9.8-20.1); BUN/Creatinine Ratio 14.71; Calc. Creatinine Clearance 19 mL/min (70-130); Carbon Dioxide 20 mmol/L (23-31); Chloride 109 mmol/L (98-107); Estimated GFR 16; Glucose 116 mg/dL (83-110); Phosphorus 2.8 mg/dL (2.3-4.7); Potassium 4.4 mmol/L (3.5-5.1); Sodium 141 mmol/L (136-145)
[2023-02-06] MEDS ORDERED: Empagliflozin 10 MG TAB PO SCH (08:12)
[2023-02-06 09:28] LABS: #Eosinphils 0.1 thou/uL (0.0-0.7); #Lymphocytes 0.8 thou/uL (1.20-3.40); #Monocytes 0.5 thou/uL (0.11-0.59); #Neutrophils 8.2 thou/uL (1.40-6.50); %Basophils 0.2 % (0.0-1.0); %Lymphocytes 7.8 % (21.0-51.0); %Monocytes 4.8 % (0.0-10.0); %Neutrophils 86.1 % (42.0-75.0); Mean Corpuscular HGB CONC 30.6 g/dL (32.0-36.0); Mean Corpuscular Hemoglobin 30.7 pg (27.0-31.0); Platelet Count 196 10x3/uL (130-400); RBC Distribution Width 18.1 % (11.5-14.5); Red Blood Cell (RBC) Count 3.25 mill/uL (4.20-5.40); White Blood Cell (WBC) Count 9.5 10x3/uL (4.8-10.8)
[2023-02-06] MEDS: Calcium Carbonate 500 MG ChewTAB PO SCH ×3 (09:51→20:08)
[2023-02-06] MEDS: predniSONE 5 MG TAB PO SCH (09:51)
[2023-02-06] MEDS: Amiodarone 200 MG TAB PO SCH (09:51)
[2023-02-06] MEDS: Aspirin Chewable 81 MG TAB PO SCH (09:51)
[2023-02-06] MEDS: guaiFENesin ER 600 MG TAB PO SCH ×2 (09:51→20:08)
[2023-02-06] MEDS: Megestrol Acetate 800 MG/20 ML UDCUP PO SCH (09:52)
[2023-02-06] MEDS: PHOS-NAK 1 PKT PACK PO SCH ×2 (09:52→20:08)
[2023-02-06] MEDS: EPOETIN ALFA-EPBX (ESRD) 10,000 UNITS/ML VIAL SC SCH (09:52)
[2023-02-06] MEDS: Sodium Bicarbonate Tab 325 MG TAB PO SCH ×2 (15:19→20:08)
[2023-02-06 15:20] VITALS: BMI 30.8
[2023-02-06] MEDS: HumaLOG 300 UNITS/3 ML VIAL SC PRN ×2 (17:25→20:15)
[2023-02-06] MEDS ORDERED: Ondansetron PF 4 MG/2 ML Vial IVP PRN (17:40)
[2023-02-06] MEDS: Atorvastatin Calcium 40 MG TAB PO SCH (20:08)
[2023-02-06] MEDS: Insulin Glargine 30 UNITS/0.3 ML VIAL SC SCH (20:08)
[2023-02-07 03:45] LABS: #Eosinphils 0.1 thou/uL (0.0-0.7); #Lymphocytes 0.5 thou/uL (1.20-3.40); #Monocytes 0.5 thou/uL (0.11-0.59); #Neutrophils 8.7 thou/uL (1.40-6.50); %Eosinophils 0.8 % (0.0-10.0); %Lymphocytes 5.3 % (21.0-51.0); %Monocytes 5.3 % (0.0-10.0); %Neutrophils 88.5 % (42.0-75.0); Hemoglobin 9.4 g/dL (12.0-16.0); Mean Corpuscular HGB CONC 32.7 g/dL (32.0-36.0); Mean Corpuscular Hemoglobin 32.2 pg (27.0-31.0); Mean Corpuscular Volume 98.3 fl (78.0-98.0); Mean Platelet Volume 9.2 fL (7.4-10.4); Platelet Count 216 10x3/uL (130-400); RBC Distribution Width 17.9 % (11.5-14.5); Red Blood Cell (RBC) Count 2.91 mill/uL (4.20-5.40); White Blood Cell (WBC) Count 9.9 10x3/uL (4.8-10.8)
[2023-02-07 04:07] LABS: Albumin 2.9 g/dL (3.4-4.8); Anion Gap 16 mmol/L (10-20); BUN (Urea Nitrogen) 47 mg/dL (9.8-20.1); BUN/Creatinine Ratio 13.99; Calc. Creatinine Clearance 18 mL/min (70-130); Calcium 7.1 mg/dL (7.8-10.44); Carbon Dioxide 24 mmol/L (23-31); Chloride 107 mmol/L (98-107); Estimated GFR 14; Glucose 124 mg/dL (83-110); Magnesium 1.4 mg/dL (1.6-2.6); Phosphorus 2.9 mg/dL (2.3-4.7); Potassium 3.9 mmol/L (3.5-5.1); Sodium 143 mmol/L (136-145)
[2023-02-07] MEDS: Furosemide 20 MG/2 ML VIAL SLOW IVP SCH (06:16)
[2023-02-07] MEDS ORDERED: Magnesium Sulfate In Water 4 GM in Premix Bag 1 BAG IVPB SCH (06:45)
[2023-02-07] MEDS: Ipratropium/Albuterol 3 ML NEB NEB SCH ×4 (07:23→23:52)
[2023-02-07] MEDS: Sodium Bicarbonate Tab 325 MG TAB PO SCH ×3 (09:48→21:32)
[2023-02-07] MEDS: PHOS-NAK 1 PKT PACK PO SCH ×2 (09:48→21:32)
[2023-02-07] MEDS: Amiodarone 200 MG TAB PO SCH (09:48)
[2023-02-07] MEDS: predniSONE 5 MG TAB PO SCH (09:48)
[2023-02-07] MEDS: Calcium Carbonate 500 MG ChewTAB PO SCH ×3 (09:48→21:32)
[2023-02-07] MEDS: Aspirin Chewable 81 MG TAB PO SCH (09:48)
[2023-02-07] MEDS: guaiFENesin ER 600 MG TAB PO SCH ×2 (09:48→21:32)
[2023-02-07] MEDS: Megestrol Acetate 800 MG/20 ML UDCUP PO SCH (09:49)
[2023-02-07] MEDS ORDERED: Empagliflozin 10 MG TAB PO SCH (14:00)
[2023-02-07] MEDS: Atorvastatin Calcium 40 MG TAB PO SCH (21:32)
[2023-02-07] MEDS: HumaLOG 300 UNITS/3 ML VIAL SC PRN (21:34)
[2023-02-07] MEDS: Temazepam 15 MG CAP PO PRN (21:38)
[2023-02-08] MEDS: HumaLOG 300 UNITS/3 ML VIAL SC PRN ×3 (06:36→21:34)
[2023-02-08] MEDS: Ipratropium/Albuterol 3 ML NEB NEB SCH ×4 (07:22→23:40)
[2023-02-08 07:44] LABS: Albumin 2.8 g/dL (3.4-4.8); Anion Gap 17 mmol/L (10-20); BUN (Urea Nitrogen) 43 mg/dL (9.8-20.1); BUN/Creatinine Ratio 12.65; Calc. Creatinine Clearance 17 mL/min (70-130); Calcium 7.1 mg/dL (7.8-10.44); Carbon Dioxide 21 mmol/L (23-31); Chloride 108 mmol/L (98-107); Estimated GFR 14; Glucose 203 mg/dL (83-110); Phosphorus 3.6 mg/dL (2.3-4.7); Potassium 4.1 mmol/L (3.5-5.1); Sodium 142 mmol/L (136-145)
[2023-02-08] MEDS: Sodium Bicarbonate Tab 325 MG TAB PO SCH ×3 (10:33→21:27)
[2023-02-08] MEDS: Furosemide 20 MG TAB PO SCH (10:33)
[2023-02-08] MEDS: Spironolactone 25 MG TAB PO SCH (10:33)
[2023-02-08] MEDS: guaiFENesin ER 600 MG TAB PO SCH ×2 (10:34→21:27)
[2023-02-08] MEDS: Aspirin Chewable 81 MG TAB PO SCH (10:34)
[2023-02-08] MEDS: Calcium Carbonate 500 MG ChewTAB PO SCH ×3 (10:34→21:27)
[2023-02-08] MEDS: PHOS-NAK 1 PKT PACK PO SCH ×2 (10:34→21:27)
[2023-02-08] MEDS: Amiodarone 200 MG TAB PO SCH (10:35)
[2023-02-08] MEDS: predniSONE 5 MG TAB PO SCH (10:35)
[2023-02-08] MEDS: Megestrol Acetate 800 MG/20 ML UDCUP PO SCH (12:46)
[2023-02-08] MEDS: Atorvastatin Calcium 40 MG TAB PO SCH (21:27)
[2023-02-09 04:31] LABS: Albumin 2.9 g/dL (3.4-4.8); Anion Gap 18 mmol/L (10-20); BUN (Urea Nitrogen) 42 mg/dL (9.8-20.1); BUN/Creatinine Ratio 11.83; Calc. Creatinine Clearance 17 mL/min (70-130); Calcium 7.2 mg/dL (7.8-10.44); Carbon Dioxide 22 mmol/L (23-31); Chloride 108 mmol/L (98-107); Estimated GFR 13; Glucose 173 mg/dL (83-110); Phosphorus 3.1 mg/dL (2.3-4.7); Potassium 4.6 mmol/L (3.5-5.1); Sodium 143 mmol/L (136-145)
[2023-02-09] MEDS: Ipratropium/Albuterol 3 ML NEB NEB SCH ×2 (08:07→14:54)
[2023-02-09] MEDS: predniSONE 5 MG TAB PO SCH (09:14)
[2023-02-09] MEDS: Furosemide 20 MG TAB PO SCH (09:14)
[2023-02-09] MEDS: Calcium Carbonate 500 MG ChewTAB PO SCH (09:14)
[2023-02-09] MEDS: Spironolactone 25 MG TAB PO SCH (09:15)
[2023-02-09] MEDS: Aspirin Chewable 81 MG TAB PO SCH (09:15)
[2023-02-09] MEDS: Amiodarone 200 MG TAB PO SCH (09:15)
[2023-02-09] MEDS: Megestrol Acetate 800 MG/20 ML UDCUP PO SCH (09:15)
[2023-02-09] MEDS: guaiFENesin ER 600 MG TAB PO SCH (09:15)
[2023-02-09] MEDS: Sodium Bicarbonate Tab 325 MG TAB PO SCH (09:15)
[2023-02-09 11:49] VITALS: TEMP 97.3
[2023-02-09 15:39] VITALS: BP 136/83
== END 2023-02-09 16:54 | disposition home or self-care (01) | DRG 871 ==
LOC: ERS 03:23 → SUATTDRO 03:23 → ERHOLD 06:55 → CCU 10:07 → IMCU/EMU 02-01 02:23
PROVIDERS: ADMIT Internal Medicine; ATTEND Internal Medicine
PROC: 3E03329 Introduction of Other Anti-infective into Peripheral Vein, Percutaneous Approach (ICD-10-PCS; principal; 2023-01-26)
PROC: 5A09357 Assistance with Respiratory Ventilation, Less than 24 Consecutive Hours, Continuous Positive Airway Pressure (ICD-10-PCS; 2023-01-26)
DX: A41.9 Sepsis, unspecified organism (principal); E11.10 Type 2 diabetes mellitus with ketoacidosis without coma; J96.01 Acute respiratory failure with hypoxia; J18.9 Pneumonia, unspecified organism; J80 Acute respiratory distress syndrome; J69.0 Pneumonitis due to inhalation of food and vomit; I50.33 Acute on chronic diastolic (congestive) heart failure; N18.4 Chronic kidney disease, stage 4 (severe); I47.20 Ventricular tachycardia, unspecified; I42.8 Other cardiomyopathies; Z20.822 Contact with and (suspected) exposure to COVID-19; E78.5 Hyperlipidemia, unspecified; E11.22 Type 2 diabetes mellitus with diabetic chronic kidney disease; I12.9 Hypertensive chronic kidney disease with stage 1 through stage 4 chronic kidney disease, or unspecified chronic kidney disease; D86.9 Sarcoidosis, unspecified; D63.1 Anemia in chronic kidney disease; R33.9 Retention of urine, unspecified; Y95 Nosocomial condition; I48.0 Paroxysmal atrial fibrillation; E87.6 Hypokalemia; I35.0 Nonrheumatic aortic (valve) stenosis; E55.9 Vitamin D deficiency, unspecified; I25.2 Old myocardial infarction; Z88.0 Allergy status to penicillin; Z79.899 Other long term (current) drug therapy; Z79.4 Long term (current) use of insulin; Z79.52 Long term (current) use of systemic steroids; Z95.1 Presence of aortocoronary bypass graft; Z87.11 Personal history of peptic ulcer disease; Z86.73 Personal history of transient ischemic attack (TIA), and cerebral infarction without residual deficits
CPT/HCPCS: 36415; 36416; 36600; 71045; 74230; 80048; 80053; 80069; 80076; 80202; 81001; 82010; 82040; 82553; 82728; 82805; 83036; 83540; 83550; 83605; 83735; 83880; 84100; 84443; 84484; 85025; 85610; 85730; 86850; 86900; 86901; 87040; 87081; 87086; 87449; 87899; 93005; 93010; 93970; 94640; 94660; 96374; 96376; C9113; J0282; J1650; J1815; J1940; J2060; J2185; J2405; J2930; J3370; J3475; J3490; J7050; J7070; J7512; J7611; J7620; Q5105

== ENCOUNTER 2023-03-19 08:00 | Outpatient (CLI) | payer MEDICARE | END 2023-03-19 08:01 | disposition home or self-care (01) | LOC: PET 08:00 | PROVIDERS: ATTEND Internal Medicine | DX: C34.12 Malignant neoplasm of upper lobe, left bronchus or lung (principal); D64.9 Anemia, unspecified | CPT/HCPCS: 78815; A9552 ==

== ENCOUNTER 2023-10-02 11:23 | Emergency (ER) | payer MEDICARE ==
[2023-10-02 12:08] LABS: #Eosinphils 0.3 thou/uL (0.0-0.7); #Monocytes 0.5 thou/uL (0.11-0.59); #Neutrophils 3.5 thou/uL (1.40-6.50); %Basophils 0.7 % (0.0-1.0); %Eosinophils 4.7 % (0.0-10.0); %Lymphocytes 18.2 % (21.0-51.0); %Monocytes 10.1 % (0.0-10.0); %Neutrophils 66.1 % (42.0-75.0); Hematocrit 37.5 % (36.0-47.0); Hemoglobin 11.7 g/dL (12.0-16.0); Mean Corpuscular HGB CONC 31.2 g/dL (32.0-36.0); Mean Corpuscular Hemoglobin 28.1 pg (27.0-31.0); Mean Corpuscular Volume 89.9 fl (78.0-98.0); Mean Platelet Volume 11.8 fL (7.4-10.4); Platelet Count 233 10x3/uL (130-400); RBC Distribution Width 14.9 % (11.5-14.5); Red Blood Cell (RBC) Count 4.17 mill/uL (4.20-5.40); White Blood Cell (WBC) Count 5.3 10x3/uL (4.8-10.8)
[2023-10-02 12:34] LABS: Troponin I 0.092 ng/mL (< 0.028)
[2023-10-02 12:43] LABS: ALT (SGPT) 10 U/L (8-55); AST (SGOT) 12 U/L (5-34); Albumin 3.5 g/dL (3.4-4.8); Alkaline Phosphatase 102 U/L (40-110); Anion Gap 12 mmol/L (10-20); BUN (Urea Nitrogen) 26 mg/dL (9.8-20.1); Bilirubin, Total 1.2 mg/dL (0.2-1.2); Calc. Creatinine Clearance 0 mL/min (70-130); Calcium 8.4 mg/dL (7.8-10.44); Carbon Dioxide 25 mmol/L (23-31); Chloride 104 mmol/L (98-107); Estimated GFR 20; Glucose 356 mg/dL (83-110); Protein, Total 6.5 g/dL (5.8-8.1); Sodium 138 mmol/L (136-145)
[2023-10-02] MEDS ORDERED: Furosemide 40 MG (4 mL) VIAL ONE (14:07)
== END 2023-10-02 14:29 | disposition home or self-care (01) ==
LOC: ERS 11:23
DX: R60.9 Edema, unspecified (principal); I12.9 Hypertensive chronic kidney disease with stage 1 through stage 4 chronic kidney disease, or unspecified chronic kidney disease; N18.4 Chronic kidney disease, stage 4 (severe); E11.22 Type 2 diabetes mellitus with diabetic chronic kidney disease; E78.5 Hyperlipidemia, unspecified; I25.10 Atherosclerotic heart disease of native coronary artery without angina pectoris; Z79.899 Other long term (current) drug therapy; Z79.82 Long term (current) use of aspirin
CPT/HCPCS: 71045; 80053; 83605; 83880; 84484; 85025; 93005; 93970; J1940

== ENCOUNTER 2023-11-04 09:00 | Observation (INO) | payer MEDICARE ==
[2023-11-04 10:00] LABS: #Basophils 0.1 thou/uL (0.0-0.2); #Eosinphils 0.2 thou/uL (0.0-0.7); #Monocytes 0.6 thou/uL (0.11-0.59); #Neutrophils 5.2 thou/uL (1.40-6.50); %Basophils 0.8 % (0.0-1.0); %Eosinophils 3.2 % (0.0-10.0); %Monocytes 8.5 % (0.0-10.0); %Neutrophils 73.2 % (42.0-75.0); Hematocrit 35.5 % (36.0-47.0); Hemoglobin 11.1 g/dL (12.0-16.0); Mean Corpuscular HGB CONC 31.3 g/dL (32.0-36.0); Mean Corpuscular Hemoglobin 27.8 pg (27.0-31.0); Mean Corpuscular Volume 88.8 fl (78.0-98.0); Mean Platelet Volume 10.7 fL (7.4-10.4); Platelet Count 248 10x3/uL (130-400); RBC Distribution Width 15.6 % (11.5-14.5); White Blood Cell (WBC) Count 7.2 10x3/uL (4.8-10.8)
[2023-11-04 10:26] LABS: ALT (SGPT) 9 U/L (8-55); AST (SGOT) 14 U/L (5-34); Albumin 3.5 g/dL (3.4-4.8); Alkaline Phosphatase 89 U/L (40-110); Anion Gap 13 mmol/L (10-20); BUN (Urea Nitrogen) 26 mg/dL (9.8-20.1); Calc. Creatinine Clearance 0 mL/min (70-130); Carbon Dioxide 23 mmol/L (23-31); Chloride 110 mmol/L (98-107); Estimated GFR 20; Globulin 2.9 g/dL (2.4-3.5); Glucose 285 mg/dL (83-110); Potassium 3.6 mmol/L (3.5-5.1); Protein, Total 6.4 g/dL (5.8-8.1); Sodium 142 mmol/L (136-145)
[2023-11-04 10:29] LABS: Troponin I 0.098 ng/mL (< 0.028)
[2023-11-04] MEDS ORDERED: Nitroglycerin 2% Ointment 1 INCH/1 GM Packet ONE (11:04)
[2023-11-04] MEDS ORDERED: Aspirin Chewable 81 MG TAB ONE (11:05)
[2023-11-04] MEDS ORDERED: Acetaminophen 325 MG TAB PO PRN (12:16)
[2023-11-04] MEDS ORDERED: Glucagon 1 MG/ML KIT IM PRN (12:16)
[2023-11-04] MEDS ORDERED: Dextrose 50% Abboject 50 ML SYRINGE SLOW IVP PRN (12:16)
[2023-11-04] MEDS ORDERED: Insulin Regular 300 UNITS/3 ML VIAL SC PRN (12:16)
[2023-11-04] MEDS ORDERED: Dextrose 5% in Water 1,000 ML IV PRN (12:16)
[2023-11-04] MEDS ORDERED: Senokot S 8.6-50 MG TAB PO PRN (12:16)
[2023-11-04] MEDS ORDERED: Furosemide 40 MG (4 mL) VIAL ONE (12:31)
[2023-11-04 12:38] LABS: Magnesium 1.8 mg/dL (1.6-2.6)
[2023-11-04] MEDS: Furosemide 40 MG (4 mL) VIAL SLOW IVP SCH (15:43)
[2023-11-04] MEDS ORDERED: hydrALAZINE 25 MG TAB ONE (15:45)
[2023-11-04] MEDS: hydrALAZINE 25 MG TAB PO SCH ×2 (15:52→20:30)
[2023-11-04] MEDS: Isosorbide Dinitrate 20 MG TAB PO SCH ×2 (15:53→20:30)
[2023-11-04 16:09] LABS: Troponin I 0.069 ng/mL (< 0.028)
[2023-11-04] MEDS ORDERED: Empagliflozin 10 MG TAB PO SCH (18:30)
[2023-11-04] MEDS ORDERED: Spironolactone 100 MG TAB PO SCH (18:30)
[2023-11-04] MEDS: Carvedilol 25 MG TAB PO SCH (20:28)
[2023-11-05] MEDS ORDERED: hydrALAZINE 25 MG TAB PO SCH (00:15)
[2023-11-05] MEDS: HumaLOG 300 UNITS/3 ML VIAL SC PRN ×2 (00:28→13:08)
[2023-11-05] MEDS: Furosemide 40 MG (4 mL) VIAL SLOW IVP SCH ×2 (05:18→14:47)
[2023-11-05 06:46] LABS: #Eosinphils 0.3 thou/uL (0.0-0.7); #Monocytes 0.7 thou/uL (0.11-0.59); #Neutrophils 4.1 thou/uL (1.40-6.50); %Basophils 0.6 % (0.0-1.0); %Eosinophils 4.3 % (0.0-10.0); %Lymphocytes 17.9 % (21.0-51.0); %Monocytes 11.2 % (0.0-10.0); %Neutrophils 65.7 % (42.0-75.0); Hematocrit 33.2 % (36.0-47.0); Hemoglobin 10.2 g/dL (12.0-16.0); Mean Corpuscular HGB CONC 30.7 g/dL (32.0-36.0); Mean Corpuscular Hemoglobin 27.5 pg (27.0-31.0); Mean Corpuscular Volume 89.5 fl (78.0-98.0); Mean Platelet Volume 10.8 fL (7.4-10.4); Platelet Count 237 10x3/uL (130-400); RBC Distribution Width 15.7 % (11.5-14.5); Red Blood Cell (RBC) Count 3.71 mill/uL (4.20-5.40); White Blood Cell (WBC) Count 6.3 10x3/uL (4.8-10.8)
[2023-11-05 07:07] LABS: Anion Gap 14 mmol/L (10-20); BUN (Urea Nitrogen) 30 mg/dL (9.8-20.1); Calc. Creatinine Clearance 25 mL/min (70-130); Calcium 8.9 mg/dL (7.8-10.44); Carbon Dioxide 24 mmol/L (23-31); Chloride 109 mmol/L (98-107); Estimated GFR 22; Glucose 147 mg/dL (83-110); Potassium 3.5 mmol/L (3.5-5.1); Sodium 143 mmol/L (136-145)
[2023-11-05] MEDS: hydrALAZINE 25 MG TAB PO SCH ×3 (08:08→21:54)
[2023-11-05] MEDS: Empagliflozin 10 MG TAB PO SCH (08:08)
[2023-11-05] MEDS: Carvedilol 25 MG TAB PO SCH ×2 (08:09→21:55)
[2023-11-05] MEDS: Isosorbide Dinitrate 20 MG TAB PO SCH ×3 (08:09→21:55)
[2023-11-05 18:12] VITALS: BMI 30.9
[2023-11-05] MEDS ORDERED: Ondansetron PF 4 MG/2 ML Vial IVP PRN (21:31)
[2023-11-05] MEDS ORDERED: Ondansetron ODT 4 MG TAB PO PRN (21:31)
[2023-11-06 00:03] VITALS: TEMP 98.8
[2023-11-06] MEDS: Furosemide 40 MG (4 mL) VIAL SLOW IVP SCH (05:25)
[2023-11-06] MEDS: HumaLOG 300 UNITS/3 ML VIAL SC PRN ×2 (06:08→11:56)
[2023-11-06 06:46] LABS: Anion Gap 13 mmol/L (10-20); BUN (Urea Nitrogen) 33 mg/dL (9.8-20.1); BUN/Creatinine Ratio 12.69; Calc. Creatinine Clearance 23 mL/min (70-130); Calcium 8.7 mg/dL (7.8-10.44); Carbon Dioxide 25 mmol/L (23-31); Chloride 105 mmol/L (98-107); Estimated GFR 19; Glucose 289 mg/dL (83-110); Phosphorus 3.9 mg/dL (2.3-4.7); Potassium 3.7 mmol/L (3.5-5.1); Sodium 139 mmol/L (136-145)
[2023-11-06] MEDS: Isosorbide Dinitrate 20 MG TAB PO SCH (08:20)
[2023-11-06] MEDS: Carvedilol 25 MG TAB PO SCH (08:20)
[2023-11-06] MEDS: hydrALAZINE 25 MG TAB PO SCH (08:21)
[2023-11-06] MEDS: Empagliflozin 10 MG TAB PO SCH (08:21)
[2023-11-06 08:22] VITALS: BP 137/70
[2023-11-07] MEDS ORDERED: FLU VACC QS2023(65UP)/MF59C/PF 60 MCG/0.5 ML SYRINGE IM ONE (09:00)
== END 2023-11-06 15:30 | disposition home or self-care (01) ==
LOC: ERS 09:00 → ERHOLD 12:13 → MSONC 16:48
PROVIDERS: ADMIT Internal Medicine; ATTEND Internal Medicine
DX: I13.0 Hypertensive heart and chronic kidney disease with heart failure and stage 1 through stage 4 chronic kidney disease, or unspecified chronic kidney disease (principal); I50.33 Acute on chronic diastolic (congestive) heart failure; E11.22 Type 2 diabetes mellitus with diabetic chronic kidney disease; N18.4 Chronic kidney disease, stage 4 (severe); E88.09 Other disorders of plasma-protein metabolism, not elsewhere classified; D86.9 Sarcoidosis, unspecified; I25.10 Atherosclerotic heart disease of native coronary artery without angina pectoris; E78.5 Hyperlipidemia, unspecified; E11.21 Type 2 diabetes mellitus with diabetic nephropathy; E83.52 Hypercalcemia; D63.1 Anemia in chronic kidney disease; E11.10 Type 2 diabetes mellitus with ketoacidosis without coma; I27.20 Pulmonary hypertension, unspecified; Z88.0 Allergy status to penicillin; Z79.899 Other long term (current) drug therapy; Z79.84 Long term (current) use of oral hypoglycemic drugs; Z79.82 Long term (current) use of aspirin; Z79.4 Long term (current) use of insulin; Z95.5 Presence of coronary angioplasty implant and graft; Z98.890 Other specified postprocedural states
CPT/HCPCS: 36415; 36416; 71045; 80048; 80053; 83735; 83880; 84443; 84484; 85025; 93005; 96374; 96375; 96376; 97139; G0378; J1815; J1940; J2405

== ENCOUNTER 2024-03-28 21:14 | Inpatient (IN) | payer MEDICARE ==
[2024-03-29] MEDS ORDERED: Morphine 4 MG/ML VIAL ONE (00:01)
[2024-03-29] MEDS ORDERED: Famotidine/PF 20 mg/2ml Vial ONE (00:02)
[2024-03-29] MEDS ORDERED: Ondansetron PF 4 MG/2 ML Vial ONE (00:02)
[2024-03-29] MEDS ORDERED: Pantoprazole 40 MG VIAL ONE (00:02)
[2024-03-29 00:30] LABS: #Basophils 0.03 10x3/uL (0.0-0.2); %Basophils 0.4 % (0.0-1.0); %Eosinophils 1.4 % (0.0-10.0); %Lymphocytes 16.8 % (21.0-51.0); %Monocytes 11.7 % (0.0-10.0); %Neutrophils 69.3 % (42.0-75.0); Hematocrit 45.7 % (36.0-47.0); Hemoglobin 14.2 g/dL (12.0-16.0); Mean Corpuscular HGB CONC 31.1 g/dL (32.0-36.0); Mean Corpuscular Hemoglobin 28.1 pg (27.0-31.0); Mean Corpuscular Volume 90.3 fL (78.0-98.0); Platelet Count 278 10x3/uL (130-400); RBC Distribution Width 13.5 % (11.5-14.5); Red Blood Cell (RBC) Count 5.06 mill/uL (4.20-5.40)
[2024-03-29 00:36] LABS: Bacteria/HPF 2+ HPF (None Seen); Bilirubin Negative (Negative); Blood, Urine Negative (Negative); CAUTI Indications for Culture Acute Hematuria; Clarity Turbid (Clear); Glucose, Urine (Dipstick) 500 mg/dL (Negative); Ketone, Urine Negative (Negative); Leukocyte 250 Leu/uL (Negative); Nitrite 2+ (Negative); Protein, Urine (Dipstick) 10 mg/dL (Neg-Trace); RBC/HPF 0-3 HPF (0-3); Specific Gravity, Urine 1.009 (1.002-1.036); Squamous Epithelial 0-3 HPF (0-3); Urobilinogen Normal mg/dL (Less than 2); pH, Urine 5.5 (5.0-9.0)
[2024-03-29 00:37] LABS: Urine Culture Reflex Yes Yes
[2024-03-29 00:44] LABS: ALT (SGPT) 6 U/L (8-55); AST (SGOT) 11 U/L (5-34); Albumin 3.1 g/dL (3.4-4.8); Alkaline Phosphatase 47 U/L (40-110); Anion Gap 17 mmol/L (10-20); BUN (Urea Nitrogen) 57 mg/dL (9.8-20.1); Bilirubin, Total 0.5 mg/dL (0.2-1.2); Calc. Creatinine Clearance 0 mL/min (70-130); Calcium 11.7 mg/dL (7.8-10.44); Carbon Dioxide 19 mmol/L (23-31); Chloride 102 mmol/L (98-107); Estimated GFR 17; Globulin 3.1 g/dL (2.4-3.5); Glucose 157 mg/dL (83-110); Lipase 35 U/L (8-78); Potassium 5.6 mmol/L (3.5-5.1); Protein, Total 6.2 g/dL (5.8-8.1); Sodium 132 mmol/L (136-145)
[2024-03-29 00:49] LABS: Troponin I 0.114 ng/mL (< 0.028)
[2024-03-29 01:27] LABS: Influenza A by NAA Not Detected (NotDetected); Influenza B by NAA Not Detected (NotDetected); SARS-CoV-2 NAA Rapid Test Not Detected (NotDetected)
[2024-03-29] MEDS ORDERED: cefTRIAXone (ROCEPHIN) 1 GM VIAL ONE (02:22)
[2024-03-29] MEDS ORDERED: Sodium Chloride 0.9% 100 ML ONE (02:23)
[2024-03-29] MEDS ORDERED: Ondansetron PF 4 MG/2 ML Vial IVP PRN (02:45)
[2024-03-29] MEDS ORDERED: Acetaminophen 325 MG TAB PO PRN (02:45)
[2024-03-29] MEDS ORDERED: Ondansetron ODT 4 MG TAB SL PRN (02:45)
[2024-03-29] MEDS: Morphine 4 MG/ML VIAL SLOW IVP PRN (03:28)
[2024-03-29 06:58] LABS: Troponin I 0.104 ng/mL (< 0.028); Troponin I 0.106 ng/mL (< 0.028)
[2024-03-29] MEDS ORDERED: Bisacodyl 5 MG TAB PO PRN (09:48)
[2024-03-29] MEDS ORDERED: Senokot S 8.6-50 MG TAB PO PRN (09:48)
[2024-03-29] MEDS ORDERED: Bisacodyl 10 MG SUPP PR PRN (09:48)
[2024-03-29] MEDS: Sodium Bicarbonate 150 MEQ in Sterile Water 1,000 ML IV SCH (11:23)
[2024-03-29 14:22] VITALS: BMI 17.9
[2024-03-29] MEDS: Atorvastatin Calcium 40 MG TAB PO SCH (20:27)
[2024-03-29] MEDS: Isosorbide Dinitrate 20 MG TAB PO SCH (20:27)
[2024-03-29] MEDS: Carvedilol 6.25 MG TAB PO SCH (20:27)
[2024-03-29] MEDS: Nitrofurantoin Monohyd/M-Cryst 100 MG CAP PO SCH (20:27)
[2024-03-29] MEDS: hydrALAZINE 25 MG TAB PO SCH (20:27)
[2024-03-30] MEDS: Acetaminophen 325 MG TAB PO PRN (00:19)
[2024-03-30 05:16] LABS: #Basophils 0.04 10x3/uL (0.0-0.2); %Basophils 0.7 % (0.0-1.0); %Eosinophils 4.8 % (0.0-10.0); %Lymphocytes 23.8 % (21.0-51.0); %Monocytes 13.2 % (0.0-10.0); %Neutrophils 57.3 % (42.0-75.0); Hematocrit 35.7 % (36.0-47.0); Hemoglobin 11.3 g/dL (12.0-16.0); Mean Corpuscular HGB CONC 31.7 g/dL (32.0-36.0); Mean Corpuscular Hemoglobin 28.3 pg (27.0-31.0); Mean Corpuscular Volume 89.5 fL (78.0-98.0); Mean Platelet Volume 9.9 fL (7.4-10.4); Platelet Count 236 10x3/uL (130-400); RBC Distribution Width 13.5 % (11.5-14.5); Red Blood Cell (RBC) Count 3.99 mill/uL (4.20-5.40)
[2024-03-30 05:29] LABS: Hemoglobin A1c 7.3 % (4.0-6.0)
[2024-03-30 05:50] LABS: ALT (SGPT) Less than 5 U/L (8-55); AST (SGOT) 10 U/L (5-34); Albumin 2.4 g/dL (3.4-4.8); Alkaline Phosphatase 36 U/L (40-110); Bilirubin, Direct 0.1 mg/dL (0.1-0.3); Bilirubin, Total 0.3 mg/dL (0.2-1.2); Protein, Total 4.7 g/dL (5.8-8.1)
[2024-03-30 05:53] LABS: Anion Gap 11 mmol/L (10-20); BUN (Urea Nitrogen) 43 mg/dL (9.8-20.1); Calc. Creatinine Clearance 15 mL/min (70-130); Carbon Dioxide 26 mmol/L (23-31); Chloride 101 mmol/L (98-107); Estimated GFR 19; Glucose 117 mg/dL (83-110); Magnesium 2.1 mg/dL (1.6-2.6); Potassium 4.3 mmol/L (3.5-5.1); Sodium 134 mmol/L (136-145)
[2024-03-30] MEDS: Pantoprazole DR 40 MG TAB PO SCH (09:53)
[2024-03-30] MEDS: Aspirin 325 MG TAB PO SCH (09:56)
[2024-03-30] MEDS: predniSONE 5 MG TAB PO SCH (09:56)
[2024-03-30] MEDS: Isosorbide Dinitrate 20 MG TAB PO SCH (10:11)
[2024-03-30] MEDS ORDERED: Promethazine HCl 12.5 MG in Sodium Chloride 0.9% 50 ML IVPB PRN (14:27)
[2024-03-30] MEDS: Ciprofloxacin 500 MG TAB PO SCH (20:34)
[2024-03-31 04:22] LABS: #Basophils 0.04 10x3/uL (0.0-0.2); %Basophils 0.7 % (0.0-1.0); %Eosinophils 4.9 % (0.0-10.0); %Lymphocytes 18.7 % (21.0-51.0); %Monocytes 15.6 % (0.0-10.0); %Neutrophils 59.7 % (42.0-75.0); Hematocrit 36.9 % (36.0-47.0); Hemoglobin 11.7 g/dL (12.0-16.0); Mean Corpuscular HGB CONC 31.7 g/dL (32.0-36.0); Mean Corpuscular Hemoglobin 27.7 pg (27.0-31.0); Mean Corpuscular Volume 87.4 fL (78.0-98.0); Mean Platelet Volume 10.2 fL (7.4-10.4); Platelet Count 230 10x3/uL (130-400); RBC Distribution Width 13.2 % (11.5-14.5); Red Blood Cell (RBC) Count 4.22 mill/uL (4.20-5.40)
[2024-03-31 04:41] LABS: Anion Gap 13 mmol/L (10-20); BUN (Urea Nitrogen) 37 mg/dL (9.8-20.1); Calc. Creatinine Clearance 14 mL/min (70-130); Calcium 10.3 mg/dL (7.8-10.44); Carbon Dioxide 30 mmol/L (23-31); Chloride 95 mmol/L (98-107); Estimated GFR 18; Glucose 151 mg/dL (83-110); Magnesium 1.9 mg/dL (1.6-2.6); Potassium 3.8 mmol/L (3.5-5.1); Sodium 134 mmol/L (136-145)
[2024-03-31] MEDS: traMADol HCl 50 MG TAB PO SCH (09:07)
[2024-03-31] MEDS: Sodium Chloride 0.9% 1,000 ML IV SCH (10:05)
[2024-03-31] MEDS: Clindamycin/D5W 900 MG in Premix 1 BAG IVPB SCH ×2 (13:54→21:29)
[2024-03-31] MEDS: Isosorbide Dinitrate 20 MG TAB PO SCH (15:48)
[2024-03-31] MEDS: hydrALAZINE 25 MG TAB PO SCH (15:48)
[2024-04-01 04:19] LABS: #Basophils 0.03 10x3/uL (0.0-0.2); %Basophils 0.5 % (0.0-1.0); %Eosinophils 4.7 % (0.0-10.0); %Lymphocytes 20.4 % (21.0-51.0); %Monocytes 13.8 % (0.0-10.0); %Neutrophils 60.1 % (42.0-75.0); Hematocrit 33.2 % (36.0-47.0); Hemoglobin 10.2 g/dL (12.0-16.0); Mean Corpuscular HGB CONC 30.7 g/dL (32.0-36.0); Mean Corpuscular Hemoglobin 28.2 pg (27.0-31.0); Mean Corpuscular Volume 91.7 fL (78.0-98.0); Mean Platelet Volume 10.1 fL (7.4-10.4); Platelet Count 226 10x3/uL (130-400); RBC Distribution Width 13.4 % (11.5-14.5); Red Blood Cell (RBC) Count 3.62 mill/uL (4.20-5.40)
[2024-04-01 04:37] LABS: Anion Gap 10 mmol/L (10-20); BUN (Urea Nitrogen) 32 mg/dL (9.8-20.1); Calc. Creatinine Clearance 15 mL/min (70-130); Carbon Dioxide 32 mmol/L (23-31); Chloride 98 mmol/L (98-107); Estimated GFR 19; Glucose 168 mg/dL (83-110); Magnesium 1.8 mg/dL (1.6-2.6); Potassium 3.9 mmol/L (3.5-5.1); Sodium 136 mmol/L (136-145)
[2024-04-01] MEDS: Acetaminophen 650 MG/20.3 ML UDCUP PO PRN (04:46)
[2024-04-01] MEDS: Promethazine HCl 12.5 MG in Sodium Chloride 0.9% 50 ML IVPB PRN (08:16)
[2024-04-01] MEDS ORDERED: Ondansetron PF 4 MG/2 ML Vial IVP PRN (09:52)
[2024-04-01 10:07] LABS: CK (CPK) 34 U/L (29-168); Phosphorus 4.1 mg/dL (2.3-4.7)
[2024-04-01 12:15] LABS: Troponin I 0.187 ng/mL (< 0.028)
[2024-04-01] MEDS ORDERED: Heparin 10,000 UNITS/ 10 ML VIAL SLOW IVP SCH (12:45)
[2024-04-01] MEDS: predniSONE 5 MG TAB PO SCH (12:59)
[2024-04-01] MEDS: traMADol HCl 50 MG TAB PO PRN (12:59)
[2024-04-01] MEDS ORDERED: Dextrose 50% Abboject 50 ML SYRINGE SLOW IVP PRN (13:06)
[2024-04-01] MEDS ORDERED: Glucagon 1 MG/ML KIT IM PRN (13:06)
[2024-04-01] MEDS ORDERED: Dextrose 5% in Water 1,000 ML IV PRN (13:06)
[2024-04-01 13:33] LABS: Hematocrit 33.7 % (36.0-47.0); Hemoglobin 10.5 g/dL (12.0-16.0); Platelet Count 230 10x3/uL (130-400)
[2024-04-01 14:43] LABS: Troponin I 0.589 ng/mL (< 0.028)
[2024-04-01] MEDS: Heparin 10,000 UNITS/ 10 ML VIAL SLOW IVP SCH (14:47)
[2024-04-01] MEDS: Heparin 25,000 units/D5W 500 ML IVPB SCH (14:57)
[2024-04-01] MEDS: methylPREDNISolone Sod Succ 40 MG VIAL IVP SCH (17:53)
[2024-04-01] MEDS: Ranolazine ER 500 MG TAB PO SCH (20:25)
[2024-04-01] MEDS: Insulin Glargine 30 UNITS/0.3 ML VIAL SC SCH (20:25)
[2024-04-02 05:33] LABS: #Basophils Less than 0.03 10x3/uL (0.0-0.2); #Eosinphils Less than 0.03 10x3/uL (0.0-0.7); %Basophils 0.1 % (0.0-1.0); %Lymphocytes 5.5 % (21.0-51.0); %Monocytes 2.1 % (0.0-10.0); %Neutrophils 91.8 % (42.0-75.0); Hematocrit 35.1 % (36.0-47.0); Hemoglobin 10.7 g/dL (12.0-16.0); Mean Corpuscular HGB CONC 30.5 g/dL (32.0-36.0); Mean Corpuscular Hemoglobin 27.4 pg (27.0-31.0); Mean Platelet Volume 10.7 fL (7.4-10.4); Platelet Count 242 10x3/uL (130-400); RBC Distribution Width 13.6 % (11.5-14.5)
[2024-04-02] MEDS: Insulin Regular, Human 100 UNIT/ML 10 ML VIAL SC PRN ×2 (06:05→20:10)
[2024-04-02 06:15] LABS: Anion Gap 15 mmol/L (10-20); BUN (Urea Nitrogen) 33 mg/dL (9.8-20.1); Calc. Creatinine Clearance 15 mL/min (70-130); Calcium 9.5 mg/dL (7.8-10.44); Carbon Dioxide 23 mmol/L (23-31); Cardiac Risk 2.1 (Less than 4.5); Chloride 98 mmol/L (98-107); Cholesterol 119 mg/dl (< 200 Desired); Estimated GFR 20; Glucose 207 mg/dL (83-110); HDL Cholesterol 58 mg/dL (>60 Neg Risk); LDL Cholesterol, Calculated 54 mg/dL; Magnesium 1.7 mg/dL (1.6-2.6); Potassium 4.1 mmol/L (3.5-5.1); Sodium 132 mmol/L (136-145); Triglycerides 36 mg/dL (Less than 150)
[2024-04-02] MEDS: Sodium Chloride 0.9% 1,000 ML IV SCH (16:11)
[2024-04-02] MEDS: hydrALAZINE 10 MG TAB PO SCH (21:20)
[2024-04-02] MEDS: methylPREDNISolone Sod Succ 40 MG VIAL IVP SCH (21:21)
[2024-04-03 03:34] LABS: #Basophils Less than 0.03 10x3/uL (0.0-0.2); #Eosinphils Less than 0.03 10x3/uL (0.0-0.7); %Basophils 0.1 % (0.0-1.0); %Lymphocytes 4.5 % (21.0-51.0); %Monocytes 4.3 % (0.0-10.0); %Neutrophils 90.7 % (42.0-75.0); Hematocrit 31.3 % (36.0-47.0); Mean Corpuscular HGB CONC 31.9 g/dL (32.0-36.0); Mean Corpuscular Hemoglobin 28.8 pg (27.0-31.0); Mean Corpuscular Volume 90.2 fL (78.0-98.0); Mean Platelet Volume 10.6 fL (7.4-10.4); Platelet Count 228 10x3/uL (130-400); RBC Distribution Width 13.6 % (11.5-14.5); Red Blood Cell (RBC) Count 3.47 mill/uL (4.20-5.40)
[2024-04-03 03:57] LABS: Anion Gap 14 mmol/L (10-20); BUN (Urea Nitrogen) 38 mg/dL (9.8-20.1); Calc. Creatinine Clearance 14 mL/min (70-130); Calcium 9.1 mg/dL (7.8-10.44); Carbon Dioxide 20 mmol/L (23-31); Chloride 101 mmol/L (98-107); Estimated GFR 18; Glucose 277 mg/dL (83-110); Magnesium 1.7 mg/dL (1.6-2.6); Potassium 4.1 mmol/L (3.5-5.1); Sodium 131 mmol/L (136-145)
[2024-04-03] MEDS: Insulin Glargine 30 UNITS/0.3 ML VIAL SC SCH (09:22)
[2024-04-03 12:55] LABS: Hematocrit 35.2 % (36.0-47.0); Hemoglobin 11.3 g/dL (12.0-16.0); Platelet Count 285 10x3/uL (130-400)
[2024-04-03] MEDS: Albumin 25% 25 GM (100 mL) BOT IVPB SCH (12:59)
[2024-04-03] MEDS ORDERED: Communication Order-Pharmacy FS SCH (16:30)
[2024-04-03] MEDS: Melatonin 3 MG TAB PO SCH (20:15)
[2024-04-03] MEDS: methylPREDNISolone Sod Succ 40 MG VIAL IVP SCH (20:17)
[2024-04-03] MEDS: Sodium Chloride 0.9% 1,000 ML IV SCH (23:22)
[2024-04-04 04:32] LABS: #Basophils Less than 0.03 10x3/uL (0.0-0.2); #Eosinphils Less than 0.03 10x3/uL (0.0-0.7); %Basophils 0.1 % (0.0-1.0); %Monocytes 6.3 % (0.0-10.0); Hematocrit 32.4 % (36.0-47.0); Hemoglobin 10.2 g/dL (12.0-16.0); Mean Corpuscular HGB CONC 31.5 g/dL (32.0-36.0); Mean Corpuscular Hemoglobin 28.7 pg (27.0-31.0); Mean Platelet Volume 10.5 fL (7.4-10.4); Platelet Count 234 10x3/uL (130-400); Red Blood Cell (RBC) Count 3.56 mill/uL (4.20-5.40)
[2024-04-04 04:59] LABS: Anion Gap 17 mmol/L (10-20); BUN (Urea Nitrogen) 47 mg/dL (9.8-20.1); Calc. Creatinine Clearance 13 mL/min (70-130); Calcium 9.7 mg/dL (7.8-10.44); Carbon Dioxide 19 mmol/L (23-31); Chloride 103 mmol/L (98-107); Estimated GFR 16; Glucose 262 mg/dL (83-110); Potassium 4.4 mmol/L (3.5-5.1); Sodium 135 mmol/L (136-145)
[2024-04-04] MEDS ORDERED: Nitroglycerin 50 MG/250 ML BOT 0 ML ONE (06:55)
[2024-04-04] MEDS ORDERED: Adenosine 6 mg (2 mL) VIAL ONE (06:55)
[2024-04-04] MEDS ORDERED: Heparin 10,000 UNITS/ 10 ML VIAL ONE (06:55)
[2024-04-04] MEDS ORDERED: Communication Order-Pharmacy FS SCH (08:15)
[2024-04-04] MEDS: Insulin Glargine 30 UNITS/0.3 ML VIAL SC SCH (08:40)
[2024-04-04] MEDS: Aspirin 81 mg Enteric Coated Tablet PO SCH (09:43)
[2024-04-04] MEDS: Sodium Chloride 0.9% 1,000 ML IV SCH (10:08)
[2024-04-04] MEDS: Acetylcysteine 20% 200 MG/ML 30 ML VIAL PO SCH ×2 (12:29→20:50)
[2024-04-04] MEDS: Sodium Bicarbonate 150 MEQ in Sterile Water 1,000 ML IV SCH (12:52)
[2024-04-04] MEDS: Sodium Bicarbonate 150 MEQ in Dextrose 5% in Water 1,000 ML IV SCH (13:07)
[2024-04-04] MEDS: Insulin Regular, Human 100 UNIT/ML 10 ML VIAL SC PRN (21:53)
[2024-04-05 04:13] LABS: #Basophils Less than 0.03 10x3/uL (0.0-0.2); #Eosinphils Less than 0.03 10x3/uL (0.0-0.7); %Basophils 0.1 % (0.0-1.0); %Lymphocytes 4.1 % (21.0-51.0); %Monocytes 5.5 % (0.0-10.0); %Neutrophils 89.4 % (42.0-75.0); Hematocrit 33.2 % (36.0-47.0); Hemoglobin 10.5 g/dL (12.0-16.0); Mean Corpuscular HGB CONC 31.6 g/dL (32.0-36.0); Mean Corpuscular Hemoglobin 28.4 pg (27.0-31.0); Mean Corpuscular Volume 89.7 fL (78.0-98.0); Mean Platelet Volume 10.6 fL (7.4-10.4); Platelet Count 285 10x3/uL (130-400); RBC Distribution Width 13.8 % (11.5-14.5)
[2024-04-05 04:28] LABS: Anion Gap 15 mmol/L (10-20); BUN (Urea Nitrogen) 49 mg/dL (9.8-20.1); Calc. Creatinine Clearance 13 mL/min (70-130); Calcium 9.4 mg/dL (7.8-10.44); Carbon Dioxide 25 mmol/L (23-31); Chloride 99 mmol/L (98-107); Estimated GFR 17; Glucose 256 mg/dL (83-110); Magnesium 1.9 mg/dL (1.6-2.6); Potassium 3.7 mmol/L (3.5-5.1); Sodium 135 mmol/L (136-145)
[2024-04-05] MEDS ORDERED: Heparin 10,000 UNITS/ 10 ML VIAL ONE (06:37)
[2024-04-05] MEDS ORDERED: Nitroglycerin 50 MG/250 ML BOT 250 ML ONE (06:37)
[2024-04-05] MEDS ORDERED: fentaNYL 50 mcg/mL 1 mL Vial ONE (07:32)
[2024-04-05] MEDS ORDERED: Midazolam HCl 2 mg/2 ml Vial ONE (07:33)
[2024-04-05] MEDS ORDERED: Adenosine 6 mg (2 mL) VIAL ONE (07:35)
[2024-04-05] MEDS ORDERED: Atropine Sulfate 1 mg/1 ml Vial ONE (07:35)
[2024-04-05] MEDS ORDERED: hydrALAZINE 20 MG/ML VIAL SLOW IVP PRN (07:47)
[2024-04-05] MEDS ORDERED: hydrALAZINE 20 MG/ML VIAL ONE ×4 (07:49→11:42)
[2024-04-05] MEDS ORDERED: TICAGRELOR 90 MG TABLET ONE (08:52)
[2024-04-05] MEDS ORDERED: Nitroglycerin 2% Ointment 1 INCH/1 GM Packet ONE (09:58)
[2024-04-05] MEDS: Sodium Chloride 0.9% 1,000 ML IV SCH (10:39)
[2024-04-05] MEDS ORDERED: Insulin Regular 300 UNITS/3 ML VIAL ONE (10:49)
[2024-04-05 12:49] LABS: Hematocrit 32.7 % (36.0-47.0); Hemoglobin 10.9 g/dL (12.0-16.0); Platelet Count 293 10x3/uL (130-400)
[2024-04-05 13:14] LABS: PTT 123.7 sec (22.9-36.1)
[2024-04-05] MEDS: Insulin Regular, Human 100 UNIT/ML 10 ML VIAL SC PRN (18:09)
[2024-04-05] MEDS: Fioricet 325/50/40 mg Tablet PO PRN (21:34)
[2024-04-05] MEDS: methylPREDNISolone Sod Succ 40 MG VIAL IVP SCH (21:38)
[2024-04-05] MEDS: TICAGRELOR 90 MG TABLET PO SCH (21:40)
[2024-04-05 22:35] LABS: Magnesium 1.8 mg/dL (1.6-2.6)
[2024-04-05] MEDS: Furosemide 20 MG (2 mL) VIAL SLOW IVP SCH (23:21)
[2024-04-06 04:02] LABS: #Basophils Less than 0.03 10x3/uL (0.0-0.2); #Eosinphils Less than 0.03 10x3/uL (0.0-0.7); %Basophils 0.1 % (0.0-1.0); %Eosinophils 0.2 % (0.0-10.0); %Lymphocytes 4.3 % (21.0-51.0); %Monocytes 3.1 % (0.0-10.0); %Neutrophils 91.5 % (42.0-75.0); Hematocrit 38.2 % (36.0-47.0); Hemoglobin 12.1 g/dL (12.0-16.0); Mean Corpuscular HGB CONC 31.7 g/dL (32.0-36.0); Mean Corpuscular Hemoglobin 28.1 pg (27.0-31.0); Mean Corpuscular Volume 88.8 fL (78.0-98.0); Platelet Count 320 10x3/uL (130-400); RBC Distribution Width 13.9 % (11.5-14.5)
[2024-04-06 04:40] LABS: ALT (SGPT) 6 U/L (8-55); AST (SGOT) 23 U/L (5-34); Alkaline Phosphatase 33 U/L (40-110); Anion Gap 16 mmol/L (10-20); BUN (Urea Nitrogen) 46 mg/dL (9.8-20.1); Bilirubin, Total 1.6 mg/dL (0.2-1.2); Calc. Creatinine Clearance 14 mL/min (70-130); Calcium 8.8 mg/dL (7.8-10.44); Carbon Dioxide 21 mmol/L (23-31); Chloride 100 mmol/L (98-107); Estimated GFR 18; Globulin 2.2 g/dL (2.4-3.5); Glucose 244 mg/dL (83-110); Potassium 3.9 mmol/L (3.5-5.1); Protein, Total 5.2 g/dL (5.8-8.1); Sodium 133 mmol/L (136-145)
[2024-04-06] MEDS: Sodium Chloride 0.9% 1,000 ML IV SCH (06:10)
[2024-04-06] MEDS: Potassium Chloride 20 MEQ TAB PO SCH (11:32)
[2024-04-06] MEDS: Furosemide 40 MG (4 mL) VIAL SLOW IVP SCH ×2 (11:32→18:34)
[2024-04-06] MEDS: predniSONE 20 MG TAB PO SCH (11:32)
[2024-04-06] MEDS: Clopidogrel Bisulfate 300 MG TAB PO SCH (18:33)
[2024-04-06] MEDS: Metolazone 5 MG TAB PO SCH (18:33)
[2024-04-06] MEDS: clonazePAM 0.5 MG TAB PO SCH (21:00)
[2024-04-07 07:49] LABS: Albumin 3.3 g/dL (3.4-4.8); Anion Gap 15 mmol/L (10-20); BUN (Urea Nitrogen) 49 mg/dL (9.8-20.1); BUN/Creatinine Ratio 16.78; Calc. Creatinine Clearance 13 mL/min (70-130); Calcium 9.5 mg/dL (7.8-10.44); Carbon Dioxide 22 mmol/L (23-31); Chloride 99 mmol/L (98-107); Estimated GFR 16; Glucose 228 mg/dL (83-110); Phosphorus 3.5 mg/dL (2.3-4.7); Potassium 4.2 mmol/L (3.5-5.1); Sodium 132 mmol/L (136-145)
[2024-04-07 08:02] LABS: Hematocrit 37.3 % (36.0-47.0); Mean Corpuscular HGB CONC 32.2 g/dL (32.0-36.0); Mean Corpuscular Hemoglobin 28.2 pg (27.0-31.0); Mean Corpuscular Volume 87.6 fL (78.0-98.0); Mean Platelet Volume 10.5 fL (7.4-10.4); Platelet Count 319 10x3/uL (130-400); RBC Distribution Width 14.1 % (11.5-14.5); Red Blood Cell (RBC) Count 4.26 mill/uL (4.20-5.40)
[2024-04-07 08:33] LABS: Burr Cells SLIGHT = 2-5 cells HPF (0-1); Eosinophils 1 % (0-10); Lymphocytes 7 % (21-51); Macrocytosis SLIGHT = 6-15 cells HPF (0-5); Monocytes 4 % (0-10); Neutrophil 87 % (42-75); Platelet Adequacy Comment Platelets Normal; Polychromasia SLIGHT = 2-3 cells HPF (0-2); Smudge Cells 13.9 %
[2024-04-07] MEDS: predniSONE 20 MG TAB PO SCH (08:47)
[2024-04-07] MEDS: Clopidogrel Bisulfate 75 MG TAB PO SCH (08:47)
[2024-04-07 14:25] VITALS: BMI 24.7
[2024-04-08 04:22] LABS: Anion Gap 16 mmol/L (10-20); BUN (Urea Nitrogen) 56 mg/dL (9.8-20.1); Calc. Creatinine Clearance 15 mL/min (70-130); Calcium 9.6 mg/dL (7.8-10.44); Carbon Dioxide 27 mmol/L (23-31); Chloride 98 mmol/L (98-107); Estimated GFR 15; Glucose 248 mg/dL (83-110); Potassium 4.6 mmol/L (3.5-5.1); Sodium 136 mmol/L (136-145)
[2024-04-08 10:52] VITALS: BP 138/69; TEMP 98.6
== END 2024-04-08 11:30 | disposition home or self-care (01) | DRG 321 ==
LOC: ERS 21:14 → 2SE 03-29 02:23 → OBSVTOIN 03-31 08:14
PROVIDERS: ADMIT Student in an Organized Health Care Education/Training Program; ATTEND Family Medicine
PROC: 30233J1 Transfusion of Nonautologous Serum Albumin into Peripheral Vein, Percutaneous Approach (ICD-10-PCS; 2024-04-03)
PROC: 027034Z Dilation of Coronary Artery, One Artery with Drug-eluting Intraluminal Device, Percutaneous Approach (ICD-10-PCS; principal; 2024-04-05)
PROC: 4A023N7 Measurement of Cardiac Sampling and Pressure, Left Heart, Percutaneous Approach (ICD-10-PCS; 2024-04-05)
PROC: B2151ZZ Fluoroscopy of Left Heart using Low Osmolar Contrast (ICD-10-PCS; 2024-04-05)
PROC: B2111ZZ Fluoroscopy of Multiple Coronary Arteries using Low Osmolar Contrast (ICD-10-PCS; 2024-04-05)
DX: I21.4 Non-ST elevation (NSTEMI) myocardial infarction (principal); E11.10 Type 2 diabetes mellitus with ketoacidosis without coma; I50.33 Acute on chronic diastolic (congestive) heart failure; N17.9 Acute kidney failure, unspecified; E87.1 Hypo-osmolality and hyponatremia; I13.0 Hypertensive heart and chronic kidney disease with heart failure and stage 1 through stage 4 chronic kidney disease, or unspecified chronic kidney disease; N30.00 Acute cystitis without hematuria; N18.4 Chronic kidney disease, stage 4 (severe); E44.0 Moderate protein-calorie malnutrition; Z68.1 Body mass index [BMI] 19.9 or less, adult; E11.21 Type 2 diabetes mellitus with diabetic nephropathy; E78.5 Hyperlipidemia, unspecified; D86.9 Sarcoidosis, unspecified; G40.909 Epilepsy, unspecified, not intractable, without status epilepticus; K76.82 Hepatic encephalopathy; E87.5 Hyperkalemia; B96.20 Unspecified Escherichia coli [E. coli] as the cause of diseases classified elsewhere; E11.65 Type 2 diabetes mellitus with hyperglycemia; I25.10 Atherosclerotic heart disease of native coronary artery without angina pectoris; K52.9 Noninfective gastroenteritis and colitis, unspecified; D69.6 Thrombocytopenia, unspecified; R79.89 Other specified abnormal findings of blood chemistry; E83.52 Hypercalcemia; D63.1 Anemia in chronic kidney disease; E11.22 Type 2 diabetes mellitus with diabetic chronic kidney disease; Z88.0 Allergy status to penicillin; Z79.82 Long term (current) use of aspirin; Z79.4 Long term (current) use of insulin; Z79.899 Other long term (current) drug therapy; Z95.1 Presence of aortocoronary bypass graft; Z98.51 Tubal ligation status; Z98.890 Other specified postprocedural states
CPT/HCPCS: 36415; 36416; 70450; 70490; 71045; 74176; 76705; 80048; 80053; 80061; 80069; 80076; 81001; 82040; 82533; 82550; 83036; 83605; 83690; 83735; 83880; 84100; 84443; 84484; 85025; 85347; 85730; 86141; 87040; 87077; 87086; 87186; 92937; 93005; 93010; 93306; 93459; 93798; 96361; 96365; 96375; 99152; 99153; A4217; C1725; C1769; C1874; C1887; C1894; C9113; C9604; J0132; J0153; J0360; J0461; J0696; J1644; J1815; J1940; J2250; J2270; J2405; J2550; J2920; J3010; J3490; J7050; J7512; P9047; S0028

== ENCOUNTER 2024-04-10 15:35 | Inpatient (IN) | payer MEDICARE ==
[2024-04-10 17:10] LABS: PTT 26.7 sec (22.9-36.1); Prothrombin Time 13.4 sec (12.0-14.7)
[2024-04-10 17:29] LABS: ALT (SGPT) 11 U/L (8-55); AST (SGOT) 17 U/L (5-34); Albumin 3.4 g/dL (3.4-4.8); Alkaline Phosphatase 41 U/L (40-110); Anion Gap 20 mmol/L (10-20); BUN (Urea Nitrogen) 77 mg/dL (9.8-20.1); Bilirubin, Total 0.6 mg/dL (0.2-1.2); Calc. Creatinine Clearance 0 mL/min (70-130); Calcium 9.9 mg/dL (7.8-10.44); Carbon Dioxide 20 mmol/L (23-31); Chloride 96 mmol/L (98-107); Estimated GFR 15; Globulin 2.1 g/dL (2.4-3.5); Glucose 561 mg/dL (83-110); Lipase 51 U/L (8-78); Magnesium 2.1 mg/dL (1.6-2.6); Potassium 5.1 mmol/L (3.5-5.1); Protein, Total 5.5 g/dL (5.8-8.1); Sodium 131 mmol/L (136-145)
[2024-04-10 17:30] LABS: Troponin I 0.981 ng/mL (< 0.028)
[2024-04-10] MEDS ORDERED: Ondansetron PF 4 MG/2 ML Vial ONE (17:31)
[2024-04-10] MEDS ORDERED: fentaNYL 50 mcg/mL 1 mL Vial ONE (17:31)
[2024-04-10] MEDS ORDERED: Insulin Regular, Human 100 UNIT/ML 10 ML VIAL ONE (18:25)
[2024-04-10 18:58] LABS: Troponin I 0.857 ng/mL (< 0.028)
[2024-04-10] MEDS ORDERED: Acetaminophen 325 MG TAB PO PRN (19:00)
[2024-04-10] MEDS ORDERED: clonazePAM 0.5 MG TAB PO PRN (19:00)
[2024-04-10] MEDS ORDERED: Ondansetron PF 4 MG/2 ML Vial IVP PRN (19:03)
[2024-04-10] MEDS ORDERED: Glucagon 1 MG/ML KIT IM PRN (19:03)
[2024-04-10] MEDS ORDERED: Dextrose 50% Abboject 50 ML SYRINGE SLOW IVP PRN (19:03)
[2024-04-10] MEDS ORDERED: Insulin Lispro 100 UNIT/ML 10 ML VIAL SC PRN (19:03)
[2024-04-10] MEDS ORDERED: Dextrose 5% in Water 1,000 ML IV PRN (19:03)
[2024-04-10] MEDS ORDERED: Aspirin Chewable 81 MG TAB ONE ×2 (19:36→19:37)
[2024-04-10 20:43] VITALS: BMI 25.9
[2024-04-10] MEDS: HYDROcodone/Acetaminophen 10/325 mg Tablet PO PRN (21:30)
[2024-04-10] MEDS: Sodium Bicarbonate Tab 325 MG TAB PO SCH (21:30)
[2024-04-10] MEDS: Atorvastatin Calcium 40 MG TAB PO SCH (21:31)
[2024-04-10] MEDS: Carvedilol 25 MG TAB PO SCH (21:31)
[2024-04-10] MEDS: Isosorbide Dinitrate 20 MG TAB PO SCH (21:32)
[2024-04-10] MEDS: hydrALAZINE 25 MG TAB PO SCH (21:32)
[2024-04-10] MEDS: traZODone HCl 50 MG TAB PO SCH (21:32)
[2024-04-10] MEDS: Insulin Lispro 100 UNIT/ML 10 ML VIAL SC PRN (21:35)
[2024-04-10] MEDS: Insulin Glargine 30 UNITS/0.3 ML VIAL SC SCH (21:35)
[2024-04-10 21:41] LABS: Critical Call Chem Troponin I 2NO.JDH; Troponin I 2.158 ng/mL (< 0.028)
[2024-04-10 22:07] LABS: #Basophils Less than 0.03 10x3/uL (0.0-0.2); #Eosinphils Less than 0.03 10x3/uL (0.0-0.7); %Basophils 0.1 % (0.0-1.0); %Lymphocytes 5.8 % (21.0-51.0); %Monocytes 6.3 % (0.0-10.0); %Neutrophils 86.9 % (42.0-75.0); Hematocrit 24.9 % (36.0-47.0); Mean Corpuscular HGB CONC 32.1 g/dL (32.0-36.0); Mean Corpuscular Hemoglobin 28.9 pg (27.0-31.0); Mean Corpuscular Volume 89.9 fL (78.0-98.0); Mean Platelet Volume 10.6 fL (7.4-10.4); Platelet Count 258 10x3/uL (130-400); RBC Distribution Width 14.4 % (11.5-14.5); Red Blood Cell (RBC) Count 2.77 mill/uL (4.20-5.40)
[2024-04-10] MEDS: Heparin 5,000 UNITS/ML VIAL SC SCH (22:40)
[2024-04-11 00:24] LABS: Troponin I 14.931 ng/mL (< 0.028)
[2024-04-11 01:11] LABS: Hematocrit 22.9 % (36.0-47.0); Hemoglobin 7.4 g/dL (12.0-16.0); Platelet Count 240 10x3/uL (130-400)
[2024-04-11] MEDS: Heparin 10,000 UNITS/ 10 ML VIAL SLOW IVP SCH (01:12)
[2024-04-11] MEDS: Heparin 25,000 units/D5W 500 ML IVPB SCH (01:15)
[2024-04-11] MEDS: Pantoprazole 40 MG VIAL IVP SCH ×2 (03:27→21:00)
[2024-04-11 03:41] LABS: #Basophils Less than 0.03 10x3/uL (0.0-0.2); %Basophils 0.1 % (0.0-1.0); %Eosinophils 0.4 % (0.0-10.0); %Lymphocytes 9.6 % (21.0-51.0); %Monocytes 9.3 % (0.0-10.0); %Neutrophils 79.9 % (42.0-75.0); Hematocrit 23.9 % (36.0-47.0); Hemoglobin 7.6 g/dL (12.0-16.0); Mean Corpuscular HGB CONC 31.8 g/dL (32.0-36.0); Mean Corpuscular Hemoglobin 28.6 pg (27.0-31.0); Mean Corpuscular Volume 89.8 fL (78.0-98.0); Mean Platelet Volume 10.4 fL (7.4-10.4); Platelet Count 253 10x3/uL (130-400); RBC Distribution Width 14.6 % (11.5-14.5); Red Blood Cell (RBC) Count 2.66 mill/uL (4.20-5.40)
[2024-04-11 03:57] LABS: Anion Gap 15 mmol/L (10-20); BUN (Urea Nitrogen) 73 mg/dL (9.8-20.1); Calc. Creatinine Clearance 15 mL/min (70-130); Calcium 9.3 mg/dL (7.8-10.44); Carbon Dioxide 25 mmol/L (23-31); Chloride 98 mmol/L (98-107); Estimated GFR 15; Glucose 295 mg/dL (83-110); Potassium 4.2 mmol/L (3.5-5.1); Sodium 134 mmol/L (136-145)
[2024-04-11 04:04] LABS: Troponin I 43.931 ng/mL (< 0.028)
[2024-04-11] MEDS ORDERED: Heparin 25,000 units/D5W 500 ML IVPB SCH (04:45)
[2024-04-11] MEDS ORDERED: Heparin 10,000 UNITS/ 10 ML VIAL SLOW IVP SCH (04:45)
[2024-04-11 07:42] LABS: Hematocrit 27.9 % (36.0-47.0)
[2024-04-11] MEDS: predniSONE 20 MG TAB PO SCH (08:31)
[2024-04-11] MEDS: Pantoprazole DR 40 MG TAB PO SCH (08:31)
[2024-04-11 08:35] LABS: Troponin I 58.599 ng/mL (< 0.028)
[2024-04-11] MEDS ORDERED: Clopidogrel Bisulfate 75 MG TAB PO SCH (09:00)
[2024-04-11] MEDS ORDERED: Aspirin 81 mg Enteric Coated Tablet PO SCH (09:00)
[2024-04-11] MEDS ORDERED: Finerenone [Kerendia] 20 MG Tablet PO SCH (09:00)
[2024-04-11] MEDS: Aspirin 81 mg Enteric Coated Tablet PO SCH ×2 (09:17→09:22)
[2024-04-11] MEDS: Furosemide 40 MG (4 mL) VIAL SLOW IVP SCH (09:22)
[2024-04-11] MEDS: Clopidogrel Bisulfate 75 MG TAB PO SCH (09:22)
[2024-04-11 11:22] VITALS: BMI 25.9
[2024-04-11 14:03] LABS: Bacteria/HPF None Seen HPF (None Seen); Bilirubin Negative (Negative); Blood, Urine Negative (Negative); CAUTI Indications for Culture Pelvic or flank pain; Clarity Clear (Clear); Glucose, Urine (Dipstick) 200 mg/dL (Negative); Ketone, Urine Negative (Negative); Leukocyte Negative Leu/uL (Negative); Nitrite Negative (Negative); Protein, Urine (Dipstick) Negative (Neg-Trace); RBC/HPF None Seen HPF (0-3); Specific Gravity, Urine 1.009 (1.002-1.036); Squamous Epithelial None Seen HPF (0-3); Urobilinogen Normal mg/dL (Less than 2); WBC/HPF 0-3 HPF (0-3); pH, Urine 5.5 (5.0-9.0)
[2024-04-11 14:26] LABS: Urine Culture Reflex No No
[2024-04-11 15:50] LABS: Hemoglobin 9.8 g/dL (12.0-16.0)
[2024-04-11] MEDS: Sodium Bicarbonate Tab 325 MG TAB PO SCH (20:59)
[2024-04-11] MEDS: Carvedilol 6.25 MG TAB PO SCH (21:00)
[2024-04-11] MEDS ORDERED: Carvedilol 25 MG TAB PO SCH (21:00)
[2024-04-12 06:01] LABS: #Basophils Less than 0.03 10x3/uL (0.0-0.2); %Basophils 0.1 % (0.0-1.0); %Eosinophils 0.6 % (0.0-10.0); %Lymphocytes 11.4 % (21.0-51.0); %Monocytes 7.5 % (0.0-10.0); %Neutrophils 79.9 % (42.0-75.0); Hematocrit 29.2 % (36.0-47.0); Hemoglobin 9.2 g/dL (12.0-16.0); Mean Corpuscular HGB CONC 31.5 g/dL (32.0-36.0); Mean Corpuscular Hemoglobin 28.6 pg (27.0-31.0); Mean Corpuscular Volume 90.7 fL (78.0-98.0); Mean Platelet Volume 10.5 fL (7.4-10.4); Platelet Count 220 10x3/uL (130-400); RBC Distribution Width 15.8 % (11.5-14.5); Red Blood Cell (RBC) Count 3.22 mill/uL (4.20-5.40)
[2024-04-12 06:32] LABS: Anion Gap 11 mmol/L (10-20); BUN (Urea Nitrogen) 72 mg/dL (9.8-20.1); Calc. Creatinine Clearance 16 mL/min (70-130); Calcium 8.9 mg/dL (7.8-10.44); Carbon Dioxide 25 mmol/L (23-31); Chloride 103 mmol/L (98-107); Estimated GFR 16; Glucose 114 mg/dL (83-110); Magnesium 2.1 mg/dL (1.6-2.6); Potassium 4.2 mmol/L (3.5-5.1); Sodium 135 mmol/L (136-145)
[2024-04-12] MEDS: predniSONE 20 MG TAB PO SCH (10:23)
[2024-04-12] MEDS: Clopidogrel Bisulfate 75 MG TAB PO SCH (10:24)
[2024-04-13 04:30] LABS: #Basophils Less than 0.03 10x3/uL (0.0-0.2); %Basophils 0.1 % (0.0-1.0); %Eosinophils 0.6 % (0.0-10.0); %Lymphocytes 11.1 % (21.0-51.0); %Monocytes 7.4 % (0.0-10.0); %Neutrophils 80.3 % (42.0-75.0); Hematocrit 29.2 % (36.0-47.0); Hemoglobin 9.1 g/dL (12.0-16.0); Mean Corpuscular HGB CONC 31.2 g/dL (32.0-36.0); Mean Corpuscular Hemoglobin 28.3 pg (27.0-31.0); Mean Corpuscular Volume 90.7 fL (78.0-98.0); Mean Platelet Volume 10.7 fL (7.4-10.4); Platelet Count 233 10x3/uL (130-400); RBC Distribution Width 15.5 % (11.5-14.5); Red Blood Cell (RBC) Count 3.22 mill/uL (4.20-5.40)
[2024-04-13 05:09] LABS: Anion Gap 12 mmol/L (10-20); BUN (Urea Nitrogen) 72 mg/dL (9.8-20.1); Calc. Creatinine Clearance 16 mL/min (70-130); Calcium 8.8 mg/dL (7.8-10.44); Carbon Dioxide 25 mmol/L (23-31); Chloride 105 mmol/L (98-107); Estimated GFR 16; Glucose 65 mg/dL (83-110); Iron 37 ug/dL (50-170); Magnesium 2.2 mg/dL (1.6-2.6); Potassium 4.5 mmol/L (3.5-5.1); Sodium 137 mmol/L (136-145)
[2024-04-13 05:14] LABS: Iron 39 ug/dL (50-170); Iron Binding Capacity, Total 179 mcg/dL (265-497)
[2024-04-13] MEDS: Sodium Bicarbonate Tab 325 MG TAB PO SCH (09:13)
[2024-04-13] MEDS: EPOETIN ALFA-EPBX (ESRD) 10,000 UNITS/ML VIAL SC SCH ×2 (15:16→15:19)
[2024-04-13] MEDS: hydrALAZINE 25 MG TAB PO SCH (15:18)
[2024-04-14 08:54] LABS: Albumin 2.6 g/dL (3.4-4.8); Anion Gap 14 mmol/L (10-20); BUN (Urea Nitrogen) 67 mg/dL (9.8-20.1); BUN/Creatinine Ratio 22.48; Calc. Creatinine Clearance 16 mL/min (70-130); Calcium 8.8 mg/dL (7.8-10.44); Carbon Dioxide 23 mmol/L (23-31); Chloride 106 mmol/L (98-107); Estimated GFR 16; Glucose 117 mg/dL (83-110); Phosphorus 3.2 mg/dL (2.3-4.7); Potassium 4.3 mmol/L (3.5-5.1); Sodium 139 mmol/L (136-145)
[2024-04-14] MEDS: Insulin Glargine 30 UNITS/0.3 ML VIAL SC SCH (10:07)
[2024-04-14 11:07] VITALS: BP 148/66
[2024-04-14] MEDS: Apixaban 5 MG TAB PO SCH ×2 (14:59→22:12)
[2024-04-15 05:41] LABS: Hematocrit 27.7 % (36.0-47.0); Hemoglobin 8.9 g/dL (12.0-16.0); Mean Corpuscular HGB CONC 32.1 g/dL (32.0-36.0); Mean Corpuscular Hemoglobin 28.3 pg (27.0-31.0); Mean Corpuscular Volume 87.9 fL (78.0-98.0); Platelet Count 211 10x3/uL (130-400); RBC Distribution Width 15.7 % (11.5-14.5); Red Blood Cell (RBC) Count 3.15 mill/uL (4.20-5.40)
[2024-04-15 06:04] LABS: Albumin 2.6 g/dL (3.4-4.8); Anion Gap 11 mmol/L (10-20); BUN (Urea Nitrogen) 65 mg/dL (9.8-20.1); BUN/Creatinine Ratio 23.38; Calc. Creatinine Clearance 17 mL/min (70-130); Carbon Dioxide 25 mmol/L (23-31); Chloride 105 mmol/L (98-107); Estimated GFR 17; Glucose 186 mg/dL (83-110); Phosphorus 2.8 mg/dL (2.3-4.7); Potassium 4.4 mmol/L (3.5-5.1); Sodium 137 mmol/L (136-145)
[2024-04-15 07:54] VITALS: TEMP 98.2
[2024-04-15] MEDS ORDERED: Furosemide 20 MG TAB PO SCH (09:00)
[2024-04-15] MEDS: Furosemide 40 MG TAB PO SCH (09:58)
== END 2024-04-15 12:35 | disposition home or self-care (01) | DRG 281 ==
LOC: ERS 15:35 → 2NO 18:29 → IMCU/EMU 04-11 06:00
PROVIDERS: ADMIT Hospitalist; ATTEND Internal Medicine
PROC: 30233N1 Transfusion of Nonautologous Red Blood Cells into Peripheral Vein, Percutaneous Approach (ICD-10-PCS; principal; 2024-04-11)
DX: I25.10 Atherosclerotic heart disease of native coronary artery without angina pectoris (principal); E87.21 Acute metabolic acidosis; I21.A1 Myocardial infarction type 2; I13.0 Hypertensive heart and chronic kidney disease with heart failure and stage 1 through stage 4 chronic kidney disease, or unspecified chronic kidney disease; N18.4 Chronic kidney disease, stage 4 (severe); I50.32 Chronic diastolic (congestive) heart failure; N17.9 Acute kidney failure, unspecified; I82.442 Acute embolism and thrombosis of left tibial vein; D86.9 Sarcoidosis, unspecified; E11.22 Type 2 diabetes mellitus with diabetic chronic kidney disease; E11.65 Type 2 diabetes mellitus with hyperglycemia; E78.5 Hyperlipidemia, unspecified; E11.21 Type 2 diabetes mellitus with diabetic nephropathy; D63.1 Anemia in chronic kidney disease; R33.9 Retention of urine, unspecified; Z88.0 Allergy status to penicillin; Z79.899 Other long term (current) drug therapy; Z79.4 Long term (current) use of insulin; Z79.82 Long term (current) use of aspirin; Z79.02 Long term (current) use of antithrombotics/antiplatelets; Z79.52 Long term (current) use of systemic steroids; Z95.1 Presence of aortocoronary bypass graft; Z95.5 Presence of coronary angioplasty implant and graft; Z98.51 Tubal ligation status
CPT/HCPCS: 36415; 36416; 36430; 71045; 74176; 80048; 80053; 80069; 81001; 82728; 83540; 83550; 83690; 83735; 83880; 84484; 85025; 85027; 85610; 85730; 86850; 86900; 86901; 93005; 93010; 93923; 96374; 96375; 97139; C9113; J1644; J1815; J1940; J2405; J3010; J7512; P9016; Q5105

== ENCOUNTER 2024-08-22 18:36 | Emergency (ER) | payer MEDICARE | END 2024-08-22 20:38 | disposition home or self-care (01) | LOC: ERS 18:36 | DX: S00.12XA Contusion of left eyelid and periocular area, initial encounter (principal); S00.81XA Abrasion of other part of head, initial encounter; I13.2 Hypertensive heart and chronic kidney disease with heart failure and with stage 5 chronic kidney disease, or end stage renal disease; N18.6 End stage renal disease; I50.9 Heart failure, unspecified; E78.5 Hyperlipidemia, unspecified; Z95.1 Presence of aortocoronary bypass graft; Z79.82 Long term (current) use of aspirin; Z79.02 Long term (current) use of antithrombotics/antiplatelets; Z79.899 Other long term (current) drug therapy; W18.39XA Other fall on same level, initial encounter; Y93.89 Activity, other specified | CPT/HCPCS: 70450 ==

== ENCOUNTER 2025-05-15 15:44 | Observation (INO) | payer OTHER ==
[2025-05-15 16:54] LABS: #Basophils 0.03 10x3/uL (0.0-0.2); #Eosinophils 0.06 10x3/uL (0.0-0.7); #Monocytes 0.64 10x3/uL (0.11-0.59); #Neutrophils 7.38 10x3/uL (1.40-6.50); %Basophils 0.3 % (0.0-1.0); %Eosinophils 0.7 % (0.0-10.0); %Lymphocytes 10.1 % (21.0-51.0); %Monocytes 7.0 % (0.0-10.0); %Neutrophils 81.3 % (42.0-75.0); Hematocrit 39.2 % (36.0-47.0); Hemoglobin 12.0 g/dL (12.0-16.0); Mean Corpuscular Hemoglobin 26.2 pg (27.0-31.0); Mean Corpuscular Volume 85.6 fL (78.0-98.0); Platelet Count 214 10x3/uL (130-400); Red Blood Cell (RBC) Count 4.58 mill/uL (4.20-5.40); White Blood Cell (WBC) Count 9.08 10x3/uL (4.8-10.8)
[2025-05-15 17:07] LABS: INR-International Normal Ratio 1.0; Prothrombin Time 13.6 sec (12.0-14.7)
[2025-05-15 17:08] LABS: PTT 28.0 sec (22.9-36.1)
[2025-05-15 17:19] LABS: Troponin I 0.153 ng/mL (< 0.028)
[2025-05-15 17:23] LABS: ALT (SGPT) 11 U/L (Less than 34); AST (SGOT) 19 U/L (11-34); Albumin 3.5 g/dL (3.1-4.5); Alkaline Phosphatase 127 U/L (40-110); Anion Gap 17 mmol/L (10-20); BUN (Urea Nitrogen) 29 mg/dL (9.8-20.1); Bilirubin, Total 0.9 mg/dL (0.3-1.2); Calc. Creatinine Clearance 0 mL/min (70-130); Calcium 8.9 mg/dL (7.8-10.44); Carbon Dioxide 26 mmol/L (23-31); Chloride 99 mmol/L (98-107); Globulin 3.6 g/dL (2.4-3.5); Glucose 370 mg/dL (83-110); Potassium 3.0 mmol/L (3.5-5.1); Sodium 139 mmol/L (136-145)
[2025-05-15] MEDS ORDERED: Aspirin Chewable 81 MG TAB ONE (17:43)
[2025-05-15] MEDS ORDERED: Ondansetron PF 4 MG/2 ML Vial IVP PRN (18:41)
[2025-05-15] MEDS ORDERED: Dextrose 50% Abboject 50 ML SYRINGE SLOW IVP PRN (19:59)
[2025-05-15] MEDS ORDERED: Glucagon 1 MG/ML KIT IM PRN (19:59)
[2025-05-15 20:46] VITALS: BMI 22.4
[2025-05-15] MEDS: Insulin Glargine 30 UNITS/0.3 ML VIAL SC SCH (22:03)
[2025-05-15] MEDS: Carvedilol 6.25 MG TAB PO SCH (22:04)
[2025-05-15] MEDS: Apixaban 2.5 MG TAB PO SCH (22:04)
[2025-05-16 00:12] LABS: Troponin I 0.140 ng/mL (< 0.028)
[2025-05-16 04:15] LABS: #Basophils 0.04 10x3/uL (0.0-0.2); #Eosinophils 0.12 10x3/uL (0.0-0.7); #Monocytes 0.71 10x3/uL (0.11-0.59); #Neutrophils 7.18 10x3/uL (1.40-6.50); %Basophils 0.4 % (0.0-1.0); %Eosinophils 1.3 % (0.0-10.0); %Lymphocytes 13.3 % (21.0-51.0); %Monocytes 7.6 % (0.0-10.0); %Neutrophils 77.1 % (42.0-75.0); Hematocrit 37.9 % (36.0-47.0); Hemoglobin 11.7 g/dL (12.0-16.0); Mean Corpuscular Hemoglobin 26.7 pg (27.0-31.0); Mean Corpuscular Volume 86.3 fL (78.0-98.0); Platelet Count 202 10x3/uL (130-400); Red Blood Cell (RBC) Count 4.39 mill/uL (4.20-5.40); White Blood Cell (WBC) Count 9.32 10x3/uL (4.8-10.8)
[2025-05-16 04:39] LABS: Troponin I 0.124 ng/mL (< 0.028)
[2025-05-16 04:42] LABS: Anion Gap 13 mmol/L (10-20); BUN (Urea Nitrogen) 26 mg/dL (9.8-20.1); Calc. Creatinine Clearance 22 mL/min (70-130); Calcium 8.2 mg/dL (7.8-10.44); Carbon Dioxide 24 mmol/L (23-31); Chloride 107 mmol/L (98-107); Glucose 198 mg/dL (83-110); Potassium 3.6 mmol/L (3.5-5.1); Sodium 140 mmol/L (136-145)
[2025-05-16] MEDS: Carvedilol 6.25 MG TAB PO SCH (09:18)
[2025-05-16] MEDS: Acetaminophen 325 MG TAB PO PRN (10:18)
[2025-05-16 15:51] VITALS: TEMP 97.6
[2025-05-16 16:10] VITALS: BP 159/82
== END 2025-05-16 17:29 | disposition home or self-care (01) ==
LOC: ERS 15:44 → 2SE 17:45
PROVIDERS: ADMIT Internal Medicine; ATTEND Internal Medicine
DX: H53.8 Other visual disturbances (principal); R51.9 Headache, unspecified; E87.6 Hypokalemia; I13.0 Hypertensive heart and chronic kidney disease with heart failure and stage 1 through stage 4 chronic kidney disease, or unspecified chronic kidney disease; E11.22 Type 2 diabetes mellitus with diabetic chronic kidney disease; I25.10 Atherosclerotic heart disease of native coronary artery without angina pectoris; I50.32 Chronic diastolic (congestive) heart failure; N18.4 Chronic kidney disease, stage 4 (severe); I25.2 Old myocardial infarction; Z88.0 Allergy status to penicillin; Z95.1 Presence of aortocoronary bypass graft; Z86.718 Personal history of other venous thrombosis and embolism; Z79.82 Long term (current) use of aspirin; Z79.4 Long term (current) use of insulin; Z79.899 Other long term (current) drug therapy
CPT/HCPCS: 70450; 70551; 71045; 80048; 80053; 82962 ×2; 83036; 84484 ×3; 85025 ×2; 85610; 85730; 93005; 94760; 99285; G0378 ×3; J1815; 36415; 36416

== ENCOUNTER 2025-06-11 08:48 | Inpatient (IN) | payer OTHER ==
[2025-06-11 09:26] LABS: #Basophils 0.06 10x3/uL (0.0-0.2); #Eosinophils 0.08 10x3/uL (0.0-0.7); #Monocytes 0.82 10x3/uL (0.11-0.59); #Neutrophils 7.78 10x3/uL (1.40-6.50); %Basophils 0.6 % (0.0-1.0); %Eosinophils 0.8 % (0.0-10.0); %Lymphocytes 11.6 % (21.0-51.0); %Monocytes 8.3 % (0.0-10.0); %Neutrophils 78.4 % (42.0-75.0); Hematocrit 35.9 % (36.0-47.0); Hemoglobin 10.5 g/dL (12.0-16.0); Mean Corpuscular Hemoglobin 25.4 pg (27.0-31.0); Mean Corpuscular Volume 86.9 fL (78.0-98.0); Platelet Count 325 10x3/uL (130-400); Red Blood Cell (RBC) Count 4.13 mill/uL (4.20-5.40); White Blood Cell (WBC) Count 9.92 10x3/uL (4.8-10.8)
[2025-06-11 09:55] LABS: CAUTI Indications for Culture Alt mental st,lethar; Glucose, Urine (Dipstick) Greater than 1000 mg/dL (Negative); Leukocyte Negative Leu/uL (Negative); Protein, Urine (Dipstick) 30 mg/dL (Neg-Trace); RBC/HPF 0-3 HPF (0-3); Specific Gravity, Urine 1.015 (1.002-1.036); WBC/HPF 0-3 HPF (0-3)
[2025-06-11 09:59] LABS: Bacteria/HPF 1+ HPF (None Seen)
[2025-06-11 10:00] LABS: Urine Culture Reflex No No
[2025-06-11 10:07] LABS: ALT (SGPT) 10 U/L (Less than 34); AST (SGOT) 16 U/L (11-34); Albumin 3.0 g/dL (3.1-4.5); Alkaline Phosphatase 109 U/L (40-110); Anion Gap 16 mmol/L (10-20); BUN (Urea Nitrogen) 39 mg/dL (9.8-20.1); Bilirubin, Total 2.3 mg/dL (0.3-1.2); Calc. Creatinine Clearance 0 mL/min (70-130); Calcium 9.2 mg/dL (7.8-10.44); Carbon Dioxide 24 mmol/L (23-31); Chloride 102 mmol/L (98-107); Globulin 3.1 g/dL (2.4-3.5); Glucose 214 mg/dL (83-110); Lipase 16 U/L (8-78); Potassium 4.1 mmol/L (3.5-5.1); Sodium 138 mmol/L (136-145)
[2025-06-11] MEDS ORDERED: Furosemide 20 MG (2 mL) VIAL ONE (11:18)
[2025-06-11] MEDS ORDERED: Senokot S 8.6-50 MG TAB PO PRN (12:49)
[2025-06-11] MEDS ORDERED: Acetaminophen/Codeine 30-300mg Tablet PO PRN (12:49)
[2025-06-11] MEDS ORDERED: Acetaminophen 325 MG TAB PO PRN (12:49)
[2025-06-11] MEDS ORDERED: Glucagon 1 MG/ML KIT IM PRN (12:58)
[2025-06-11] MEDS ORDERED: Dextrose 50% Abboject 50 ML SYRINGE SLOW IVP PRN (12:58)
[2025-06-11] MEDS ORDERED: Electrolyte Replacement Protocol 1 EACH FS SCH (13:00)
[2025-06-11] MEDS ORDERED: Iopamidol-370 76% 500 ML MDV (1 ML CHARGE) ONE (13:17)
[2025-06-11 14:11] VITALS: BMI 27.4
[2025-06-11] MEDS: Azithromycin 500 MG in Sodium Chloride 0.9% 250 ML 250 ML IVPB SCH (14:22)
[2025-06-11] MEDS: Sodium Bicarbonate Tab 325 MG TAB PO SCH (14:23)
[2025-06-11] MEDS: Insulin Glargine 30 UNITS/0.3 ML VIAL SC SCH ×2 (14:23→20:39)
[2025-06-11] MEDS: Carvedilol 6.25 MG TAB PO SCH ×2 (14:24→17:17)
[2025-06-11] MEDS: PNEUMOC 20-VAL CONJ-DIP CRM/PF 0.5 ML SYRINGE IM ONE (14:25)
[2025-06-12 05:22] LABS: #Basophils 0.03 10x3/uL (0.0-0.2); #Eosinophils 0.07 10x3/uL (0.0-0.7); #Monocytes 0.81 10x3/uL (0.11-0.59); #Neutrophils 7.20 10x3/uL (1.40-6.50); %Basophils 0.3 % (0.0-1.0); %Eosinophils 0.8 % (0.0-10.0); %Lymphocytes 12.1 % (21.0-51.0); %Monocytes 8.7 % (0.0-10.0); %Neutrophils 77.7 % (42.0-75.0); Hematocrit 33.8 % (36.0-47.0); Hemoglobin 10.2 g/dL (12.0-16.0); Mean Corpuscular Hemoglobin 25.9 pg (27.0-31.0); Mean Corpuscular Volume 85.8 fL (78.0-98.0); Platelet Count 314 10x3/uL (130-400); Red Blood Cell (RBC) Count 3.94 mill/uL (4.20-5.40); White Blood Cell (WBC) Count 9.27 10x3/uL (4.8-10.8)
[2025-06-12 05:50] LABS: ALT (SGPT) 8 U/L (Less than 34); AST (SGOT) 24 U/L (11-34); Albumin 2.8 g/dL (3.1-4.5); Alkaline Phosphatase 100 U/L (40-110); Anion Gap 18 mmol/L (10-20); BUN (Urea Nitrogen) 41 mg/dL (9.8-20.1); Bilirubin, Total 1.9 mg/dL (0.3-1.2); Calc. Creatinine Clearance 23 mL/min (70-130); Calcium 8.9 mg/dL (7.8-10.44); Carbon Dioxide 21 mmol/L (23-31); Chloride 103 mmol/L (98-107); Globulin 3.0 g/dL (2.4-3.5); Glucose 115 mg/dL (83-110); Potassium 3.3 mmol/L (3.5-5.1); Sodium 139 mmol/L (136-145)
[2025-06-12] MEDS ORDERED: Finerenone [Kerendia] 20 MG Tablet PO SCH (09:00)
[2025-06-12] MEDS: Pantoprazole 40 MG DR.TAB PO SCH (09:40)
[2025-06-12] MEDS: Aspirin 81 mg Enteric Coated Tablet PO SCH (09:40)
[2025-06-12] MEDS: Sertraline 25 MG TAB PO SCH (12:50)
[2025-06-12 16:18] VITALS: BMI 27.1
[2025-06-12] MEDS: Furosemide 40 MG (4 mL) VIAL SLOW IVP SCH (18:21)
[2025-06-12] MEDS: Heparin 5,000 UNITS/ML VIAL SC SCH (20:15)
[2025-06-13] MEDS: Furosemide 40 MG (4 mL) VIAL SLOW IVP SCH (05:05)
[2025-06-13] MEDS: Sertraline 25 MG TAB PO SCH (08:42)
[2025-06-13] MEDS ORDERED: Sertraline 100 MG TAB PO SCH (09:00)
[2025-06-13 09:07] LABS: Anion Gap 13 mmol/L (10-20); BUN (Urea Nitrogen) 34 mg/dL (9.8-20.1); Calc. Creatinine Clearance 0 mL/min (70-130); Calcium 8.4 mg/dL (7.8-10.44); Carbon Dioxide 23 mmol/L (23-31); Chloride 103 mmol/L (98-107); Glucose 75 mg/dL (83-110); Potassium 3.5 mmol/L (3.5-5.1); Sodium 135 mmol/L (136-145)
[2025-06-13] MEDS: Insulin Glargine 30 UNITS/0.3 ML VIAL SC SCH (20:11)
[2025-06-14 04:27] LABS: Iron 59 ug/dL (50-170); Iron Binding Capacity, Total 188 mcg/dL (265-497)
[2025-06-14 04:28] LABS: Anion Gap 15 mmol/L (10-20); BUN (Urea Nitrogen) 35 mg/dL (9.8-20.1); Calc. Creatinine Clearance 0 mL/min (70-130); Calcium 8.0 mg/dL (7.8-10.44); Carbon Dioxide 21 mmol/L (23-31); Chloride 103 mmol/L (98-107); Glucose 127 mg/dL (83-110); Iron 58 ug/dL (50-170); Potassium 4.3 mmol/L (3.5-5.1); Sodium 135 mmol/L (136-145)
[2025-06-14] MEDS: Guaifenesin DM 100-10/5 ML UDCUP PO PRN (05:53)
[2025-06-15 05:12] LABS: Anion Gap 17 mmol/L (10-20); BUN (Urea Nitrogen) 35 mg/dL (9.8-20.1); Calc. Creatinine Clearance 19 mL/min (70-130); Calcium 8.6 mg/dL (7.8-10.44); Carbon Dioxide 23 mmol/L (23-31); Chloride 102 mmol/L (98-107); Glucose 123 mg/dL (83-110); Potassium 4.5 mmol/L (3.5-5.1); Sodium 137 mmol/L (136-145)
[2025-06-16 04:58] LABS: Anion Gap 14 mmol/L (10-20); BUN (Urea Nitrogen) 34 mg/dL (9.8-20.1); Calc. Creatinine Clearance 18 mL/min (70-130); Calcium 9.0 mg/dL (7.8-10.44); Carbon Dioxide 24 mmol/L (23-31); Chloride 103 mmol/L (98-107); Glucose 167 mg/dL (83-110); Potassium 4.3 mmol/L (3.5-5.1); Sodium 137 mmol/L (136-145)
[2025-06-16] MEDS: Carvedilol 6.25 MG TAB PO SCH (18:35)
[2025-06-17] MEDS: Furosemide 40 MG TAB PO SCH (08:29)
[2025-06-17 08:56] LABS: #Basophils 0.05 10x3/uL (0.0-0.2); #Eosinophils 0.12 10x3/uL (0.0-0.7); #Monocytes 0.83 10x3/uL (0.11-0.59); #Neutrophils 6.10 10x3/uL (1.40-6.50); %Basophils 0.6 % (0.0-1.0); %Eosinophils 1.4 % (0.0-10.0); %Lymphocytes 16.1 % (21.0-51.0); %Monocytes 9.8 % (0.0-10.0); %Neutrophils 71.6 % (42.0-75.0); Hematocrit 33.5 % (36.0-47.0); Hemoglobin 9.9 g/dL (12.0-16.0); Mean Corpuscular Hemoglobin 26.1 pg (27.0-31.0); Mean Corpuscular Volume 88.4 fL (78.0-98.0); Platelet Count 310 10x3/uL (130-400); Red Blood Cell (RBC) Count 3.79 mill/uL (4.20-5.40); White Blood Cell (WBC) Count 8.51 10x3/uL (4.8-10.8)
[2025-06-17 09:15] LABS: Albumin 2.9 g/dL (3.1-4.5); Anion Gap 15 mmol/L (10-20); BUN (Urea Nitrogen) 34 mg/dL (9.8-20.1); BUN/Creatinine Ratio 13.28; Calc. Creatinine Clearance 18 mL/min (70-130); Calcium 8.5 mg/dL (7.8-10.44); Carbon Dioxide 23 mmol/L (23-31); Chloride 101 mmol/L (98-107); Glucose 190 mg/dL (83-110); Magnesium 2.0 mg/dL (1.6-2.6); Potassium 3.8 mmol/L (3.5-5.1); Sodium 135 mmol/L (136-145)
[2025-06-17] MEDS ORDERED: Magnesium 2 GM/50 ML(in water) 2 GM in Premix 1 BAG IVPB SCH (09:45)
[2025-06-17 15:39] VITALS: BP 130/66; TEMP 97.5
== END 2025-06-17 14:40 | disposition home or self-care (01) | DRG 280 ==
LOC: ERS 08:48 → 2NO 12:21
PROVIDERS: ADMIT Internal Medicine; ATTEND Internal Medicine
DX: I13.0 Hypertensive heart and chronic kidney disease with heart failure and stage 1 through stage 4 chronic kidney disease, or unspecified chronic kidney disease (principal); I50.33 Acute on chronic diastolic (congestive) heart failure; I21.A1 Myocardial infarction type 2; J18.9 Pneumonia, unspecified organism; N18.4 Chronic kidney disease, stage 4 (severe); E11.22 Type 2 diabetes mellitus with diabetic chronic kidney disease; I25.10 Atherosclerotic heart disease of native coronary artery without angina pectoris; Z79.899 Other long term (current) drug therapy; I25.2 Old myocardial infarction; E78.5 Hyperlipidemia, unspecified; Z95.5 Presence of coronary angioplasty implant and graft; E80.6 Other disorders of bilirubin metabolism; Z88.0 Allergy status to penicillin; D86.9 Sarcoidosis, unspecified; F32.A Depression, unspecified; Z79.82 Long term (current) use of aspirin; E88.09 Other disorders of plasma-protein metabolism, not elsewhere classified
CPT/HCPCS: 36415; 36416; 71045; 71275; 74018; 80048; 80053; 80069; 81001; 82728; 83540; 83550; 83605; 83690; 83735; 83880; 84146; 84443; 84484; 85025; 87428; 93005; 93306; 93798; 93970; 94760; 96374; 97139; J0456; J1644; J1815; J1940; J2550; J7050; J7512; Q9967

== ENCOUNTER 2025-08-01 08:55 | Outpatient (CLI) | payer MEDICARE, OTHER | END 2025-08-01 08:56 | disposition home or self-care (01) | LOC: BICRAD 08:55 | PROVIDERS: ATTEND Family Medicine | DX: R06.02 Shortness of breath (principal); I51.7 Cardiomegaly | CPT/HCPCS: 71046 ==